=== PATIENT | female | born 1985 | race Caucasian/White ===

== ENCOUNTER 2016-06-11 16:32 | Emergency (ER) | payer OTHER ==
--- NOTE | 2016-06-11 17:28 | EDDOCDS ---
Physician Documentation [facility] Name: Alexus Montague Age: 30 yrs Sex: Female : 1985 Arrival Date: 06/11/2016 Time: 16:32 Bed Triage 1 Private MD: Fabricio Xiong A. Disposition: 06/11/16 17:09 Discharged to Home/Self Care. Impression: Acute serous otitis media, left ear, Labyrinthitis. - Condition is Stable. - Discharge Instructions: Serous Otitis Media, Labyrinthitis, Grzu-wu-Yoky. - Prescriptions for Medrol (Loy) 4 mg Oral Tablets, Dose Pack - take 1 Pack by ORAL route as directed - follow package instructions; 1 packet. azelastine 137 mcg (0.1 %) Nasal Aerosol, [place] - spray 2 spray by INTRANASAL route 2 times per day each nostril; 1 bottle. - Medication Reconciliation, Local Pharmacy Hours form. - Follow up: Fabricio Xiong; When: 2 - 3 days; Reason: Further diagnostic work-up, Recheck today's complaints, Continuance of care. - Problem is new. - Symptoms are unchanged. Historical: - Allergies: no known allergies; - Home Meds: 1. Augmentin 875-125 mg Oral tab 1 tab every 12 hours on 4th day - PMHx: PCOS; - PSHx: Right knee surgery; Cholecystectomy; - Social history: Smoking status: Patient states former smoker of tobacco. No barriers to communication noted, The patient speaks fluent Uzbek, Speaks appropriately for age. - Family history: Not pertinent. - : The pt / caregiver states he / she is not on anticoagulants. Home medication list is obtained from the patient. - Exposure Risk Screening:: None identified. 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 3 in. (160.02 cm) (R); 16:34 Body Mass Index 41.45 (106.14 kg, 160.02 cm) elp Signatures: Jaja Menon RN RN rs3 Babatunde Villegas PA PA btw Smith, Mallory,RN RN ms18 The chart was reviewed and I authenticate all verbal orders and agree with the evaluation and treatment provided.Corrections: (The following items were deleted from the chart) 17:23 16:41 Home Meds: none; rs3 ms18 MTDD
--- NOTE | 2016-06-11 17:28 | EDDOCDS ---
Nurse's Notes [facility] Name: Alexus Montague Age: 30 yrs Sex: Female : 1985 Arrival Date: 06/11/2016 Time: 16:32 Bed Triage 1 Private MD: Fabricio Xiong A. Diagnosis: Acute serous otitis media, left ear;Labyrinthitis Presentation: 06/11 16:39 Presenting complaint: Patient states: headache, nausea for 7 days. Was seen at urgent rs3 care on Sunday. given Augmentin for L ear infection. symptoms not improved. Risk factors: the patient reports no vaginal bleeding. Adult Sepsis Screening: The patient does not have new or worsening altered mentation. Patient's respiratory rate is less than 22. Systolic blood pressure is greater than 100. Patient has a qSOFA score of 0- Negative Sepsis Screen. Suicide/Homicide risk assessment- the patient denies having any suicidal and/or homicidal ideations and does not present with any other emotional, behavioral or mental health complaints. Status: Patient is not a customer service representative or dependent. Transition of care: patient was not received from another setting of care. 16:39 Acuity: MORENA Level 4 rs3 16:39 Method Of Arrival: Walkin/Carried/Asstd rs3 Triage Assessment: 16:41 General: Appears in no apparent distress. Pain: Location: headache. HIV screening NA rs3 for this visit Offered previously. 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 Augmentin 875-125 mg Oral tab 1 tab every 12 hours on 4th day - PMHx: PCOS; - PSHx: Right knee surgery; Cholecystectomy; - Social history: Smoking status: Patient states former smoker of tobacco. No barriers to communication noted, The patient speaks fluent [place], Speaks appropriately for age. - Family history: Not pertinent. - : The pt / caregiver states he / she is not on anticoagulants. Home medication list is obtained from the patient. - Exposure Risk Screening:: None identified. Screenin:23 Screening information is obtained from the patient. Fall risk: No risks identified. ms18 Assistance ADL's: requires no assistance with activities of daily living. Abuse/DV Screen: The patient / caregiver reports he/she is: not in a situation that causes fear, pain or injury. Nutritional screening: No deficits noted. Advance Directives: Currently, there is no health care proxy. home support is adequate. Assessment: 17:23 General: Appears in no apparent distress, comfortable, Behavior is appropriate for age, ms18 cooperative. Pain: Location: head, right upper quadrant and left upper quadrant Pain currently is 8 out of 10 on a pain scale. Neurological: No deficits noted. Respiratory: Airway is patent Respiratory effort is even, unlabored. GI: Abdomen is non- distended Bowel sounds present X 4 quads. Abd is soft X 4 quads Reports nausea. Derm: Skin is pink, warm & dry. Vital Signs: 16:34 BP 105 / 63; Pulse 84; Resp 16; Temp 98.1(O); Pulse Ox 100% on R/A; Weight 106.14 kg elp (R); Height 5 ft. 3 in. (160.02 cm) (R); 16:34 Body Mass Index 41.45 (106.14 kg, 160.02 cm) elp Vitals: 16:34 Log In Time: June 11, 2016 at 16:32. elp ED Course: 16:33 Patient visited by Alecia Santos PCA. elp 16:33 Patient moved to Waiting elp 16:34 Fabricio Xiong is Private Physician. elp 16:34 Patient visited by Alecia Santos PCA. elp 16:34 Patient moved to Pre RCE elp 16:40 Triage Initiated rs3 16:48 Patient moved to Triage 1 jjr 16:57 [facility]leg[facility] is [facility]. btw 16:57 Ankita Yu MD is Attending Physician. btw 16:58 Patient visited by Babatunde Villegas PA. btw 17:09 Fabricio Xiong is Referral Physician. btw 17:23 The patient / caregiver is instructed regarding the plan of care and ED course. Patient ms18 has correct armband on for positive identification. Property sent home with patient. :Personal belongings accompany Pt. 17:23 No IV's were initiated during this patient's visit. No procedures done that require ms18 assistance. Order Results: There are currently no results for this order. Outcome: 17:09 Discharge ordered by Provider. btw 17:23 Discharge Assessment: Patient awake, alert and oriented x 3. No cognitive and/or ms18 functional deficits noted. Patient verbalized understanding of disposition instructions. patient administered narcotics - no. The following High Risk Discharge criteria are identified: None. Discharged to home ambulatory. Condition: good Condition: stable. Discharge instructions given to patient, Instructed on discharge instructions, follow up and referral plans. medication usage, Demonstrated understanding of instructions, medications, Pt was receptive of discharge instructions/ teaching. Prescriptions given X 2. No special radiology studies were completed. 17:26 Patient left the ED. ms18 Signatures: Jocelyn Ames, RN RN Jaja SolanoRN RN rs3 Babatunde Villegas, PA PA Alecia Rowell, EXERCISE RIDER EXERCISE RIDER Smiley Leo RN RN ms18 Corrections: (The following items were deleted from the chart) 17:23 16:41 Home Meds: none; rs3 ms18 MTDD
--- NOTE | 2016-06-13 18:28 | EDDOCDS ---
Physician Documentation [facility] Name: Alexus Montague Age: 30 yrs Sex: Female : 1985 Arrival Date: 06/11/2016 Time: 16:32 Bed Triage 1 Private MD: Fabricio Xiong A. Disposition: 06/11/16 17:09 Discharged to Home/Self Care. Impression: Acute serous otitis media, left ear, Labyrinthitis. - Condition is Stable. - Discharge Instructions: Serous Otitis Media, Labyrinthitis, Nkiu-jc-Saah. - Prescriptions for Medrol (Loy) 4 mg Oral Tablets, Dose Pack - take 1 Pack by ORAL route as directed - follow package instructions; 1 packet. azelastine 137 mcg (0.1 %) Nasal Aerosol, [place] - spray 2 spray by INTRANASAL route 2 times per day each nostril; 1 bottle. - Medication Reconciliation, Local Pharmacy Hours form. - Follow up: Fabricio Xiong; When: 2 - 3 days; Reason: Further diagnostic work-up, Recheck today's complaints, Continuance of care. - Problem is new. - Symptoms are unchanged. Historical: - Allergies: no known allergies; - Home Meds: 1. Augmentin 875-125 mg Oral tab 1 tab every 12 hours on 4th day - PMHx: PCOS; - PSHx: Right knee surgery; Cholecystectomy; - Social history: Smoking status: Patient states former smoker of tobacco. No barriers to communication noted, The patient speaks fluent Italian, Speaks appropriately for age. - Family history: Not pertinent. - : The pt / caregiver states he / she is not on anticoagulants. Home medication list is obtained from the patient. - Exposure Risk Screening:: None identified. 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 3 in. (160.02 cm) (R); 16:34 Body Mass Index 41.45 (106.14 kg, 160.02 cm) elp [facility]: 17:28 Financial registration complete. ks 17:29 PENDING SALE TO [facility] Payment Agreement was scanned into [employer] and attached to record. 06/12 12:49 T-Sheet-- Draft Copy was scanned into [employer] and attached to record. gb Signatures: Maria C García, Reg Reg gb Jaja MenonRN RN rs3 Babatunde Villegas PA PA btw Smith, Mallory, RN RN ms18 Lin Dutton, Reg Reg ks16 The chart was reviewed and I authenticate all verbal orders and agree with the evaluation and treatment provided.Corrections: (The following items were deleted from the chart) 06/11 17:23 16:41 Home Meds: none; rs3 ms18 Attachments: 17:29 [facility] [place] 06/12 12:49 T-Sheet-- Draft Copy gb Chart Complete MTDD
--- NOTE | 2016-06-13 18:28 | EDDOCDS ---
Physician Documentation [facility] Name: Alexus Montague Age: 30 yrs Sex: Female : 1985 Arrival Date: 06/11/2016 Time: 16:32 Bed Triage 1 Private MD: Fabricio Xiong A. Disposition: 06/11/16 17:09 Discharged to Home/Self Care. Impression: Acute serous otitis media, left ear, Labyrinthitis. - Condition is Stable. - Discharge Instructions: Serous Otitis Media, Labyrinthitis, Xyly-[id number]. - Prescriptions for Medrol (Loy) 4 mg Oral Tablets, Dose Pack - take 1 Pack by ORAL route as directed - follow package instructions; 1 packet. azelastine 137 mcg (0.1 %) Nasal Aerosol, [place] - spray 2 spray by INTRANASAL route 2 times per day each nostril; 1 bottle. - Medication Reconciliation, Local Pharmacy Hours form. - Follow up: Fabricio Xiong; When: 2 - 3 days; Reason: Further diagnostic work-up, Recheck today's complaints, Continuance of care. - Problem is new. - Symptoms are unchanged. Historical: - Allergies: no known allergies; - Home Meds: 1. Augmentin 875-125 mg Oral tab 1 tab every 12 hours on 4th day - PMHx: PCOS; - PSHx: Right knee surgery; Cholecystectomy; - Social history: Smoking status: Patient states former smoker of tobacco. No barriers to communication noted, The patient speaks fluent Setswana, Speaks appropriately for age. - Family history: Not pertinent. - : The pt / caregiver states he / she is not on anticoagulants. Home medication list is obtained from the patient. - Exposure Risk Screening:: None identified. 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 3 in. (160.02 cm) (R); 16:34 Body Mass Index 41.45 (106.14 kg, 160.02 cm) elp [facility]: 17:28 Financial registration complete. ks 17:29 [facility] Payment Agreement was scanned into [employer] and attached to record. 06/12 12:49 T-Sheet-- Draft Copy was scanned into [employer] and attached to record. gb Signatures: Maria C García, Reg Reg gb Jaja MenonRN RN rs3 Babatunde Villegas PA PA btw Smith, Mallory, RN RN ms18 Lin Dutton, Reg Reg ks16 The chart was reviewed and I authenticate all verbal orders and agree with the evaluation and treatment provided.Corrections: (The following items were deleted from the chart) 06/11 17:23 16:41 Home Meds: none; rs3 ms18 Attachments: 17:29 [facility] Payment Agreement 06/12 12:49 T-Sheet-- Draft Copy gb Chart Complete MTDD
--- NOTE | 2016-06-13 18:28 | EDDOCDS ---
Nurse's Notes [facility] Name: Alexus Montague Age: 30 yrs Sex: Female : 1985 Arrival Date: 06/11/2016 Time: 16:32 Bed Triage 1 Private MD: Fabricio Xiong A. Diagnosis: Acute serous otitis media, left ear;Labyrinthitis Presentation: 06/11 16:39 Presenting complaint: Patient states: headache, nausea for 7 days. Was seen at urgent rs3 care on Sunday. given Augmentin for L ear infection. symptoms not improved. Risk factors: the patient reports no vaginal bleeding. Adult Sepsis Screening: The patient does not have new or worsening altered mentation. Patient's respiratory rate is less than 22. Systolic blood pressure is greater than 100. Patient has a qSOFA score of 0- Negative Sepsis Screen. Suicide/Homicide risk assessment- the patient denies having any suicidal and/or homicidal ideations and does not present with any other emotional, behavioral or mental health complaints. Status: Patient is not a customer service engineer or dependent. Transition of care: patient was not received from another setting of care. 16:39 Acuity: MORENA Level 4 rs3 16:39 Method Of Arrival: Walkin/Carried/Asstd rs3 Triage Assessment: 16:41 General: Appears in no apparent distress. Pain: Location: headache. HIV screening NA rs3 for this visit Offered previously. 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 Augmentin 875-125 mg Oral tab 1 tab every 12 hours on 4th day - PMHx: PCOS; - PSHx: Right knee surgery; Cholecystectomy; - Social history: Smoking status: Patient states former smoker of tobacco. No barriers to communication noted, The patient speaks fluent Montenegrin, Speaks appropriately for age. - Family history: Not pertinent. - : The pt / caregiver states he / she is not on anticoagulants. Home medication list is obtained from the patient. - Exposure Risk Screening:: None identified. Screenin:23 Screening information is obtained from the patient. Fall risk: No risks identified. ms18 Assistance ADL's: requires no assistance with activities of daily living. Abuse/DV Screen: The patient / caregiver reports he/she is: not in a situation that causes fear, pain or injury. Nutritional screening: No deficits noted. Advance Directives: Currently, there is no health care proxy. home support is adequate. Assessment: 17:23 General: Appears in no apparent distress, comfortable, Behavior is appropriate for age, ms18 cooperative. Pain: Location: head, right upper quadrant and left upper quadrant Pain currently is 8 out of 10 on a pain scale. Neurological: No deficits noted. Respiratory: Airway is patent Respiratory effort is even, unlabored. GI: Abdomen is non- distended Bowel sounds present X 4 quads. Abd is soft X 4 quads Reports nausea. Derm: Skin is pink, warm & dry. Vital Signs: 16:34 BP 105 / 63; Pulse 84; Resp 16; Temp 98.1(O); Pulse Ox 100% on R/A; Weight 106.14 kg elp (R); Height 5 ft. 3 in. (160.02 cm) (R); 16:34 Body Mass Index 41.45 (106.14 kg, 160.02 cm) elp Vitals: 16:34 Log In Time: June 11, 2016 at 16:32. elp ED Course: 16:33 Patient visited by Alecia Santos PCA. elp 16:33 Patient moved to Waiting elp 16:34 Fabricio Xiong is Private Physician. elp 16:34 Patient visited by Alecia Santos PCA. elp 16:34 Patient moved to Pre RCE elp 16:40 Triage Initiated rs3 16:48 Patient moved to Triage 1 jjr 16:57 [facility] btw 16:57 Ankita Yu MD is Attending Physician. btw 16:58 Patient visited by Babatunde Villegas PA. btw 17:09 Fabricio Xiong is Referral Physician. btw 17:23 The patient / caregiver is instructed regarding the plan of care and ED course. Patient ms18 has correct armband on for positive identification. Property sent home with patient. :Personal belongings accompany Pt. 17:23 No IV's were initiated during this patient's visit. No procedures done that require ms18 assistance. 17:29 [facility] Payment Agreement was scanned into [employer] and attached to record. [id number] 06/12 12:49 T-Sheet-- Draft Copy was scanned into [employer] and attached to record. gb Order Results: There are currently no results for this order. Outcome: 06/11 17:09 Discharge ordered by Provider. btw 17:23 Discharge Assessment: Patient awake, alert and oriented x 3. No cognitive and/or ms18 functional deficits noted. Patient verbalized understanding of disposition instructions. patient administered narcotics - no. The following High Risk Discharge criteria are identified: None. Discharged to home ambulatory. Condition: good Condition: stable. Discharge instructions given to patient, Instructed on discharge instructions, follow up and referral plans. medication usage, Demonstrated understanding of instructions, medications, Pt was receptive of discharge instructions/ teaching. Prescriptions given X 2. No special radiology studies were completed. 17:26 Patient left the ED. ms18 Signatures: Maria C García, Reg Reg gb Jocelyn Ames, RN RN Jaja SolanoRN RN rs3 Babatunde Villegas, ASHA PA btw Alecia Santos, DATA NETWORK ARCHITECT DATA NETWORK ARCHITECT Smiley Leo RN RN ms18 Lin Dutton, Reg Reg ks16 Corrections: (The following items were deleted from the chart) 17:23 16:41 Home Meds: none; rs3 ms18 Chart Complete MTDD
== END 2016-06-11 17:26 | disposition home or self-care (01) ==
LOC: M ED 16:32
DX: H83.09 Labyrinthitis, unspecified ear (principal); H65.02 Acute serous otitis media, left ear; Z79.2 Long term (current) use of antibiotics

== ENCOUNTER 2016-06-14 22:30 | Emergency (ER) | payer OTHER ==
[2016-06-14] MEDS ORDERED: diphenhydrAMINE INJ 50MG/ML VIAL (J1200) As Ordered ONE (23:15)
[2016-06-14] MEDS ORDERED: FAMOTIDINE INJ 20MG/2ML VIAL (S0028) As Ordered ONE (23:16)
[2016-06-15 01:05] LABS: BASO % 0.2 % (0.0-1.0); EOS # 0.1 K/mm3 (0.0-0.50); EOS % 0.5 % (0.0-3.0); LARGE UNSTAINED CELL # 0.1 K/mm3 (0.0-0.4); LARGE UNSTAINED CELL % 1.2 % (0.0-4.0); LYMPH # 1.6 K/mm3 (1.5-4.5); LYMPH % 14.6 % (24.0-44.0); MEAN CORPUSCULAR HEMOGLOBIN 27.6 pg (27.0-33.0); MEAN CORPUSCULAR HGB CONC 33.3 g/dl (32.0-36.5); MEAN CORPUSCULAR VOLUME 82.9 fl (80.0-96.0); MONO # 0.4 K/mm3 (0.0-0.8); MONO % 3.2 % (0.0-5.0); NEUTROPHILS # 8.7 K/mm3 (1.8-7.7); NEUTROPHILS % 80.2 % (36.0-66.0); PLATELET COUNT, AUTOMATED 299 k/mm3 (150-450); WHITE BLOOD COUNT 10.9 K/mm3 (4.0-10.0)
[2016-06-15 01:24] LABS: CONTROL LINE HCG INT CTR LINE PRESENT
[2016-06-15 01:25] LABS: ANION GAP 8 MEQ/L (8-16); BLOOD UREA NITROGEN 10 MG/DL (7-18); CALCIUM LEVEL 8.4 MG/DL (8.5-10.1); CARBON DIOXIDE LEVEL 23 MEQ/L (21-32); CHLORIDE LEVEL 109 MEQ/L (98-107); CREATININE FOR GFR 0.59 MG/DL (0.55-1.02); GLOMERULAR FILTRATION RATE > 60.0 (>60); GLUCOSE, FASTING 109 MG/DL (70-105); POTASSIUM SERUM 3.8 MEQ/L (3.5-5.1); SODIUM LEVEL 140 MEQ/L (136-145)
--- NOTE | 2016-06-15 02:59 | EDDOCDS ---
Physician Documentation [facility] Name: Alexus Montague Age: 30 yrs Sex: Female : 1985 Arrival Date: 06/14/2016 Time: 22:30 Bed 17 Private MD: Fabricio Xiong A. Disposition: 06/15/16 02:43 Discharged to Home/Self Care. Impression: Allergic urticaria - Possibly due to Medrol Dose.. - Condition is Stable. - Discharge Instructions: Allergies, Hives, Allergies, Ymkk-[id number]-Aiml, Hives, Vxzz-zc-Tdat. - Medication Reconciliation, Local Pharmacy Hours form. - Follow up: Fabricio Xiong; When: Call to arrange an appointment; Reason: Continuance of care. - Problem is an acute exacerbation. - Symptoms have improved. Historical: - Allergies: No known drug Allergies; - Home Meds: 1. methylprednisolone 4 mg Oral tab 4 times per day 2. Astepro 0.15 % (205.5 mcg) nasal spry 1 spray 2 times per day - PMHx: PCOS; - PSHx: Right knee surgery; Cholecystectomy; - Social history: Smoking status: Patient uses tobacco products, light tobacco smoker. No barriers to communication noted, The patient speaks fluent Taiwanese, Speaks appropriately for age. - Family history: Not pertinent. - : The pt / caregiver states he / she is not on anticoagulants. Home medication list is obtained from the patient. - Exposure Risk Screening:: None identified. 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 3 in. (160.02 cm) (R); Pain 2/10; 23:23 BP 148 / 72; Pulse 78; Resp 18; Pulse Ox 98% on R/A; tm5 02/02 00:55 BP 116 / 52; Pulse 78; Resp 18; Pulse Ox 98% on R/A; Pain 0/10; tm5 02:55 BP 118 / 52; Pulse 77; Resp 18; Temp 98.3(O); Pulse Ox 100% on R/A; Pain 0/10; tm5 06/14 22:32 Body Mass Index 41.45 (106.14 kg, 160.02 cm) gr2 MDM: 06/14 23:09 IV Saline Lock ordered. mm11 23:09 diphenhydrAMINE 25 mg IVP once ordered. mm11 23:09 Famotidine 10 mg IVPB once over 30 mins; dilute in 50mL of NS ordered. mm11 23:38 Financial registration complete. hs2 06/15 00:08 [facility] Payment Agreement was scanned into [employer] and attached to record. hs2 00:39 NS 0.9% 1000 ml IV at bolus once ordered. mm11 00:40 CBC with Diff Ordered. EDMS 00:40 BMP Ordered. EDMS 00:40 D-Dimer Quant Ordered. EDMS 00:40 HCG,Serum Qualitative Ordered. EDMS 00:41 Chest, 2 View (pa\E\lat) Ordered. EDMS 01:31 CBC with Diff Reviewed. mm11 01:31 BMP Reviewed. mm11 01:31 HCG,Serum Qualitative Reviewed. mm11 01:42 D-Dimer Quant Reviewed. mm11 Administered Medications: 06/14 23:24 Drug: diphenhydrAMINE 25 mg [diphenhydramine 50 mg/mL injection solution (0.5 mL)] tm5 Route: IVP; Site: left hand; 06/15 00:25 Follow up: Response: No Adverse Reaction tm5 06/14 23:24 Drug: Famotidine 10 mg [famotidine 10 mg/mL intravenous solution] {Note: given IVPB in tm5 50cc NS over 30 minutes.} Route: IVPB; Infused Over: 30 mins; Site: left hand; 06/15 00:05 Follow up: IV Status: Completed infusion; IV Intake: 50ml tm5 00:55 Drug: NS 0.9% 1000 ml [sodium chloride 0.9 % intravenous solution] Route: IV; Rate: tm5 bolus; Site: left hand; 02:50 Follow up: IV Status: Completed infusion; IV Intake: 1000ml tm5 Signatures: Dispatcher [employer] EDMS Tameka King RN RN jo3 Maynard, Matthew, DO DO mm11 Windy Pham, Reg Reg hs2 Ellie Malhotra RN RN tm5 The chart was reviewed and I authenticate all verbal orders and agree with the evaluation and treatment provided.Attachments: 00:08 [facility] Payment Agreement hs2 MTDD
--- NOTE | 2016-06-15 02:59 | EDDOCDS ---
Nurse's Notes [facility] Name: Alexus Montague Age: 30 yrs Sex: Female : 1985 Arrival Date: 06/14/2016 Time: 22:30 Bed 17 Private MD: Fabricio Xiong A. Diagnosis: Allergic urticaria-Possibly due to Medrol Dose. Presentation: 06/14 22:46 Presenting complaint: Patient states: Taking methylprednisolone since yesterday. Took jo3 evening dose tonight at 2039 and upper arms and face are itchy and pt reports a tightness in her chest. Onset: The symptoms/episode began/occurred acutely, 2 hour(s) ago. This patient has not experienced a previous allergic reaction. Anaphylaxis evaluation, the patient reports or I have noted the following symptoms which indicate a significant risk of anaphylaxis: chest pain. Adult Sepsis Screening: The patient does not have new or worsening altered mentation. Patient's respiratory rate is less than 22. Systolic blood pressure is greater than 100. Patient has a qSOFA score of 0- Negative Sepsis Screen. Suicide/Homicide risk assessment- the patient denies having any suicidal and/or homicidal ideations and does not present with any other emotional, behavioral or mental health complaints. 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 Transition of care: patient was not received from another setting of care. 22:46 Acuity: MORENA Level 2 jo3 22:46 Method Of Arrival: Walkin/Carried/Asstd jo3 Triage Assessment: 22:50 General: Appears in no apparent distress, Behavior is appropriate for age, cooperative. jo3 HIV screening NA for this visit Offered previously. Neurological: Level of Consciousness is awake, alert, Oriented to person, place, time. Cardiovascular: Chest pain quality is tightness. Respiratory: Airway is patent Respiratory effort is even, unlabored, Reports. Derm: Skin is pink, warm & dry. 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 methylprednisolone 4 mg Oral tab 4 times per day 2. Astepro 0.15 % (205.5 mcg) nasal spry 1 spray 2 times per day - PMHx: PCOS; - PSHx: Right knee surgery; Cholecystectomy; - Social history: Smoking status: Patient uses tobacco products, light tobacco smoker. No barriers to communication noted, The patient speaks fluent Peruvian, Speaks appropriately for age. - Family history: Not pertinent. - : The pt / caregiver states he / she is not on anticoagulants. Home medication list is obtained from the patient. - Exposure Risk Screening:: None identified. Screenin:09 Screening information is obtained from the patient. Fall risk: No risks identified. tm5 Assistance ADL's: requires no assistance with activities of daily living. Abuse/DV Screen: The patient / caregiver reports he/she is: not in a situation that causes fear, pain or injury. Nutritional screening: No deficits noted. Advance Directives: There is no active DNR order. home support is adequate. Assessment: 23:23 General: Appears in no apparent distress, Behavior is appropriate for age, cooperative. tm5 Pain: Denies pain. Neurological: Level of Consciousness is awake, alert, Oriented to person, place, time. Respiratory: Airway is patent Respiratory effort is even, unlabored, Respiratory pattern is regular, symmetrical, Breath sounds are clear bilaterally. GI: No deficits noted. : No deficits noted. Derm: Skin is pink, warm & dry. normal, cheeks flushed. 06/15 00:25 Reassessment: Patient appears in no apparent distress at this time. Patient states tm5 feeling better. Patient states symptoms have improved. 02:55 Reassessment: Patient appears in no apparent distress at this time. Patient states tm5 feeling better. Patient states symptoms have improved. Vital Signs: 06/14 22:32 BP 152 / 73; Pulse 90; Resp 18 S; Temp 97.6(O); Pulse Ox 99% on R/A; Weight 106.14 kg gr2 (R); Height 5 ft. 3 in. (160.02 cm) (R); Pain 2/10; 23:23 BP 148 / 72; Pulse 78; Resp 18; Pulse Ox 98% on R/A; tm5 06/15 00:55 BP 116 / 52; Pulse 78; Resp 18; Pulse Ox 98% on R/A; Pain 0/10; tm5 02:55 BP 118 / 52; Pulse 77; Resp 18; Temp 98.3(O); Pulse Ox 100% on R/A; Pain 0/10; tm5 06/14 22:32 Body Mass Index 41.45 (106.14 kg, 160.02 cm) gr2 Vitals: 06/14 22:32 Log In Time: June 14, 2016 at 22:32. gr2 ED Course: 22:31 Patient visited by Clem Ames. gr2 22:31 Fabricio Xiong is Private Physician. gr2 22:31 Patient moved to Waiting gr2 22:32 Patient visited by Clem Ames. gr2 22:33 Patient moved to Pre RCE gr2 22:48 Triage Initiated jo3 22:52 Patient moved to 17 jo3 22:55 Zachary Najera DO is Attending Physician. mm11 22:55 Patient visited by Zachary Najera DO. mm11 23:08 Patient visited by Zachary Najera DO. mm11 23:09 The patient / caregiver is instructed regarding the plan of care and ED course. tm5 23:22 Inserted saline lock: 20 gauge in left hand The patient tolerated the procedure well. tm5 No procedures done that require assistance. 06/15 00:08 REPLACED BY [facility] Payment Agreement was scanned into [employer] and attached to record. hs2 00:25 Patient visited by Ellie Malhotra RN. tm5 00:37 Patient visited by Ellie Malhotra,RONEN. tm5 00:54 HCG,Serum Qualitative Sent. tm5 00:54 D-Dimer Quant Sent. tm5 00:55 BMP Sent. tm5 00:55 CBC with Diff Sent. tm5 00:55 Labs drawn. (by ED staff). Sent per order to lab. tm5 01:38 Patient moved to Radiology es5 01:49 Patient moved to 17 es5 01:50 Patient visited by Zachary Najera DO. mm11 01:55 Patient visited by Ellie Malhotra,RONEN. tm5 02:40 Fabricio Xiong is Referral Physician. mm11 02:55 Patient visited by Ellie Malhotra RN. tm5 02:55 Discontinued lock intact, bleeding controlled, pressure dressing applied, No tm5 redness/swelling at site. Administered Medications: 06/14 23:24 Drug: diphenhydrAMINE 25 mg [diphenhydramine 50 mg/mL injection solution (0.5 mL)] tm5 Route: IVP; Site: left hand; 06/15 00:25 Follow up: Response: No Adverse Reaction tm5 06/14 23:24 Drug: Famotidine 10 mg [famotidine 10 mg/mL intravenous solution] {Note: given IVPB in tm5 50cc NS over 30 minutes.} Route: IVPB; Infused Over: 30 mins; Site: left hand; 06/15 00:05 Follow up: IV Status: Completed infusion; IV Intake: 50ml tm5 00:55 Drug: NS 0.9% 1000 ml [sodium chloride 0.9 % intravenous solution] Route: IV; Rate: tm5 bolus; Site: left hand; 02:50 Follow up: IV Status: Completed infusion; IV Intake: 1000ml tm5 Intake: 00:05 IV: 50.00ml; Total: 50.00ml. tm5 02:50 IV: 1000.00ml; Total: 1050.00ml. tm5 Order Results: Lab Order: CBC with Diff; SPEC'M 06/15/16 00:53 Test: WHITE BLOOD COUNT; Value: 10.9; Range: 4.0-10.0; Abnormal: Above high normal; Units: K/mm3; Status: F Test: RED BLOOD COUNT; Value: 4.70; Range: 4.00-5.40; Units: M/mm3; Status: F Test: HEMOGLOBIN; Value: 13.0; Range: 12.0-16.0; Units: g/dl; Status: F Test: HEMATOCRIT; Value: 38.9; Range: 36.0-47.0; Units: %; Status: F Test: MEAN CORPUSCULAR VOLUME; Value: 82.9; Range: 80.0-96.0; Units: fl; Status: F Test: MEAN CORPUSCULAR HEMOGLOBIN; Value: 27.6; Range: 27.0-33.0; Units: pg; Status: F Test: MEAN CORPUSCULAR HGB CONC; Value: 33.3; Range: 32.0-36.5; Units: g/dl; Status: F Test: RED CELL DISTRIBUTION WIDTH; Value: 13.0; Range: 11.5-14.5; Units: %; Status: F Test: PLATELET COUNT, AUTOMATED; Value: 299; Range: 150-450; Units: k/mm3; Status: F Test: NEUTROPHILS %; Value: 80.2; Range: 36.0-66.0; Abnormal: Above high normal; Units: %; Status: F Test: LYMPH %; Value: 14.6; Range: 24.0-44.0; Abnormal: Below low normal; Units: %; Status: F Test: MONO %; Value: 3.2; Range: 0.0-5.0; Units: %; Status: F Test: EOS %; Value: 0.5; Range: 0.0-3.0; Units: %; Status: F Test: BASO %; Value: 0.2; Range: 0.0-1.0; Units: %; Status: F Test: LARGE UNSTAINED CELL %; Value: 1.2; Range: 0.0-4.0; Units: %; Status: F Test: NEUTROPHILS #; Value: 8.7; Range: 1.8-7.7; Abnormal: Above high normal; Units: K/mm3; Status: F Test: LYMPH #; Value: 1.6; Range: 1.5-4.5; Units: K/mm3; Status: F Test: MONO #; Value: 0.4; Range: 0.0-0.8; Units: K/mm3; Status: F Test: EOS #; Value: 0.1; Range: 0.0-0.50; Units: K/mm3; Status: F Test: BASO #; Value: 0.0; Range: 0.0-0.2; Units: K/mm3; Status: F Test: LARGE UNSTAINED CELL #; Value: 0.1; Range: 0.0-0.4; Units: K/mm3; Status: F Lab Order: [facility]; SPEC'M 06/15/16 00:53 Test: GLUCOSE, FASTING; Value: 109; Range: 70-105; Abnormal: Above high normal; Units: MG/DL; Status: F Test: BLOOD UREA NITROGEN; Value: 10; Range: 7-18; Units: MG/DL; Status: F Test: CREATININE FOR GFR; Value: 0.59; Range: 0.55-1.02; Units: MG/DL; Status: F Test: GLOMERULAR FILTRATION RATE; Value: > 60.0; Range: >60; Status: F Test: SODIUM LEVEL; Value: 140; Range: 136-145; Units: MEQ/L; Status: F Test: POTASSIUM SERUM; Value: 3.8; Range: 3.5-5.1; Units: MEQ/L; Status: F Test: CHLORIDE LEVEL; Value: 109; Range: 98-107; Abnormal: Above high normal; Units: MEQ/L; Status: F Test: CARBON DIOXIDE LEVEL; Value: 23; Range: 21-32; Units: MEQ/L; Status: F Test: ANION GAP; Value: 8; Range: 8-16; Units: MEQ/L; Status: F Test: CALCIUM LEVEL; Value: 8.4; Range: 8.5-10.1; Abnormal: Below low normal; Units: MG/DL; Status: F Test Note: ; Units are mL/min/1.73 m2 Chronic Kidney Disease Staging per NKF: Stage I & II GFR >=60 Normal to Mildly Decreased Stage III GFR 30-59 Moderately Decreased Stage IV GFR 15-29 Severely Decreased Stage V GFR <15 Very Little GFR Left ESRD GFR <15 on CAMP [place]OSS Lab Order: D-Dimer Quant; SPEC'M 06/15/16 00:53 Test: D-DIMER QUANT; Value: 408.3; Range: <500; Units: ng/ml; Status: F Lab Order: HCG,Serum Qualitative; SPEC'M 06/15/16 00:53 Test: HCG, SERUM QUALITATIVE; Value: NEGATIVE; Range: NEGATIVE; Status: F Outcome: 02:43 Discharge ordered by Provider. mm11 02:55 Discharge Assessment: Patient awake, alert and oriented x 3. No cognitive and/or tm5 functional deficits noted. Patient verbalized understanding of disposition instructions. patient administered narcotics - no. The following High Risk Discharge criteria are identified: None. Discharged to home ambulatory. Condition: good Condition: stable Condition: improved. Discharge instructions given to patient, Instructed on discharge instructions, follow up and referral plans. Demonstrated understanding of instructions, Pt was receptive of discharge instructions/ teaching. No special radiology studies were completed. Property :Personal belongings accompany Pt. 02:58 Patient left the ED. tm5 Signatures: Tameka KingRN RN [email or web address] Zachary Najera DO DO mm11 Krissy Feldman es5 Clem Ames gr2 Windy Pham, Reg Reg hs2 Ellie Malhotra RN RN tm5 MTDD
--- NOTE | 2016-06-15 03:05 | REP ---
Clinical: Shortness of breath . Comparison: 01/30/2013 . Technique: PA and lateral. Findings: The mediastinum and cardiac silhouette are normal. The lung coello are clear and without acute consolidation, effusion, or pneumothorax. The skeletal structures are intact and normal. Impression: 1. No acute cardiopulmonary process. Signed by Omar Santamaria MD 06/15/2016 02:56 A
--- NOTE | 2016-06-17 03:59 | EDDOCDS ---
Physician Documentation [facility] Name: Alexus Montague Age: 30 yrs Sex: Female : 1985 Arrival Date: 06/14/2016 Time: 22:30 Bed 17 Private MD: Fabricio Xiong A. Disposition: 06/15/16 02:43 Discharged to Home/Self Care. Impression: Allergic urticaria - Possibly due to Medrol Dose.. - Condition is Stable. - Discharge Instructions: Allergies, Hives, Allergies, Cdzo-cd-Gbyk, Hives, Htbj-dy-Okil. - Medication Reconciliation, Local Pharmacy Hours form. - Follow up: Fabricio Xiong; When: Call to arrange an appointment; Reason: Continuance of care. - Problem is an acute exacerbation. - Symptoms have improved. Historical: - Allergies: No known drug Allergies; - Home Meds: 1. methylprednisolone 4 mg Oral tab 4 times per day 2. Astepro 0.15 % (205.5 mcg) nasal spry 1 spray 2 times per day - PMHx: PCOS; - PSHx: Right knee surgery; Cholecystectomy; - Social history: Smoking status: Patient uses tobacco products, light tobacco smoker. No barriers to communication noted, The patient speaks fluent Mauritian, Speaks appropriately for age. - Family history: Not pertinent. - : The pt / caregiver states he / she is not on anticoagulants. Home medication list is obtained from the patient. - Exposure Risk Screening:: None identified. 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 3 in. (160.02 cm) (R); Pain 2/10; 23:23 BP 148 / 72; Pulse 78; Resp 18; Pulse Ox 98% on R/A; tm5 02/02 00:55 BP 116 / 52; Pulse 78; Resp 18; Pulse Ox 98% on R/A; Pain 0/10; tm5 02:55 BP 118 / 52; Pulse 77; Resp 18; Temp 98.3(O); Pulse Ox 100% on R/A; Pain 0/10; tm5 06/14 22:32 Body Mass Index 41.45 (106.14 kg, 160.02 cm) gr2 MDM: 06/14 23:09 IV Saline Lock ordered. mm11 23:09 diphenhydrAMINE 25 mg IVP once ordered. mm11 23:09 Famotidine 10 mg IVPB once over 30 mins; dilute in 50mL of NS ordered. mm11 23:38 Financial registration complete. hs2 06/15 00:08 [facility] Payment Agreement was scanned into [employer] and attached to record. hs2 00:39 NS 0.9% 1000 ml IV at bolus once ordered. mm11 00:40 CBC with Diff Ordered. EDMS 00:40 BMP Ordered. EDMS 00:40 D-Dimer Quant Ordered. EDMS 00:40 HCG,Serum Qualitative Ordered. EDMS 00:41 Chest, 2 View (pa\E\lat) Ordered. EDMS 01:31 CBC with Diff Reviewed. mm11 01:31 BMP Reviewed. mm11 01:31 HCG,Serum Qualitative Reviewed. mm11 01:42 D-Dimer Quant Reviewed. mm11 12:51 T-Sheet-- Draft Copy was scanned into [employer] and attached to record. gb Administered Medications: 06/14 23:24 Drug: diphenhydrAMINE 25 mg [diphenhydramine 50 mg/mL injection solution (0.5 mL)] tm5 Route: IVP; Site: left hand; 06/15 00:25 Follow up: Response: No Adverse Reaction tm5 06/14 23:24 Drug: Famotidine 10 mg [famotidine 10 mg/mL intravenous solution] {Note: given IVPB in tm5 50cc NS over 30 minutes.} Route: IVPB; Infused Over: 30 mins; Site: left hand; 06/15 00:05 Follow up: IV Status: Completed infusion; IV Intake: 50ml tm5 00:55 Drug: NS 0.9% 1000 ml [sodium chloride 0.9 % intravenous solution] Route: IV; Rate: tm5 bolus; Site: left hand; 02:50 Follow up: IV Status: Completed infusion; IV Intake: 1000ml tm5 Signatures: Dispatcher [employer] EDTN Maria C García, Juan Francisco Reg Tameka King RN RN Zachary Mcclelland, DO mm11 Windy Pham, Reg Reg hs2 Ellie Malhotra,RN RN tm5 The chart was reviewed and I authenticate all verbal orders and agree with the evaluation and treatment provided.Attachments: 00:08 [facility] [place] Agreement hs2 12:51 T-Sheet-- Draft Copy gb Chart Complete [id number]
--- NOTE | 2016-06-17 03:59 | EDDOCDS ---
Nurse's Notes [facility] Name: Alexus Montague Age: 30 yrs Sex: Female : 1985 Arrival Date: 06/14/2016 Time: 22:30 Bed 17 Private MD: Fabricio Xiong A. Diagnosis: Allergic urticaria-Possibly due to Medrol Dose. Presentation: 06/14 22:46 Presenting complaint: Patient states: Taking methylprednisolone since yesterday. Took jo3 evening dose tonight at 2039 and upper arms and face are itchy and pt reports a tightness in her chest. Onset: The symptoms/episode began/occurred acutely, 2 hour(s) ago. This patient has not experienced a previous allergic reaction. Anaphylaxis evaluation, the patient reports or I have noted the following symptoms which indicate a significant risk of anaphylaxis: chest pain. Adult Sepsis Screening: The patient does not have new or worsening altered mentation. Patient's respiratory rate is less than 22. Systolic blood pressure is greater than 100. Patient has a qSOFA score of 0- Negative Sepsis Screen. Suicide/Homicide risk assessment- the patient denies having any suicidal and/or homicidal ideations and does not present with any other emotional, behavioral or mental health complaints. 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 Transition of care: patient was not received from another setting of care. 22:46 Acuity: MORENA Level 2 jo3 22:46 Method Of Arrival: Walkin/Carried/Asstd jo3 Triage Assessment: 22:50 General: Appears in no apparent distress, Behavior is appropriate for age, cooperative. jo3 HIV screening NA for this visit Offered previously. Neurological: Level of Consciousness is awake, alert, Oriented to person, place, time. Cardiovascular: Chest pain quality is tightness. Respiratory: Airway is patent Respiratory effort is even, unlabored, Reports. Derm: Skin is pink, warm & dry. 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 methylprednisolone 4 mg Oral tab 4 times per day 2. Astepro 0.15 % (205.5 mcg) nasal spry 1 spray 2 times per day - PMHx: PCOS; - PSHx: Right knee surgery; Cholecystectomy; - Social history: Smoking status: Patient uses tobacco products, light tobacco smoker. No barriers to communication noted, The patient speaks fluent Paraguayan, Speaks appropriately for age. - Family history: Not pertinent. - : The pt / caregiver states he / she is not on anticoagulants. Home medication list is obtained from the patient. - Exposure Risk Screening:: None identified. Screenin:09 Screening information is obtained from the patient. Fall risk: No risks identified. tm5 Assistance ADL's: requires no assistance with activities of daily living. Abuse/DV Screen: The patient / caregiver reports he/she is: not in a situation that causes fear, pain or injury. Nutritional screening: No deficits noted. Advance Directives: There is no active DNR order. home support is adequate. Assessment: 23:23 General: Appears in no apparent distress, Behavior is appropriate for age, cooperative. tm5 Pain: Denies pain. Neurological: Level of Consciousness is awake, alert, Oriented to person, place, time. Respiratory: Airway is patent Respiratory effort is even, unlabored, Respiratory pattern is regular, symmetrical, Breath sounds are clear bilaterally. GI: No deficits noted. : No deficits noted. Derm: Skin is pink, warm & dry. normal, cheeks flushed. 06/15 00:25 Reassessment: Patient appears in no apparent distress at this time. Patient states tm5 feeling better. Patient states symptoms have improved. 02:55 Reassessment: Patient appears in no apparent distress at this time. Patient states tm5 feeling better. Patient states symptoms have improved. Vital Signs: 06/14 22:32 BP 152 / 73; Pulse 90; Resp 18 S; Temp 97.6(O); Pulse Ox 99% on R/A; Weight 106.14 kg gr2 (R); Height 5 ft. 3 in. (160.02 cm) (R); Pain 2/10; 23:23 BP 148 / 72; Pulse 78; Resp 18; Pulse Ox 98% on R/A; tm5 06/15 00:55 BP 116 / 52; Pulse 78; Resp 18; Pulse Ox 98% on R/A; Pain 0/10; tm5 02:55 BP 118 / 52; Pulse 77; Resp 18; Temp 98.3(O); Pulse Ox 100% on R/A; Pain 0/10; tm5 06/14 22:32 Body Mass Index 41.45 (106.14 kg, 160.02 cm) gr2 Vitals: 06/14 22:32 Log In Time: June 14, 2016 at 22:32. gr2 ED Course: 22:31 Patient visited by Clem Ames. gr2 22:31 Fabricio Xiong is Private Physician. gr2 22:31 Patient moved to Waiting gr2 22:32 Patient visited by Clem Ames. gr2 22:33 Patient moved to Pre RCE gr2 22:48 Triage Initiated jo3 22:52 Patient moved to 17 jo3 22:55 Zachary Najera DO is Attending Physician. mm11 22:55 Patient visited by Zachary Najera DO. mm11 23:08 Patient visited by Zachary Najera DO. mm11 23:09 The patient / caregiver is instructed regarding the plan of care and ED course. tm5 23:22 Inserted saline lock: 20 gauge in left hand The patient tolerated the procedure well. tm5 No procedures done that require assistance. 06/15 00:08 [facility] Payment Agreement was scanned into [employer] and attached to record. hs2 00:25 Patient visited by Ellie Malhotra RN. tm5 00:37 Patient visited by Ellie Malhotra,RONEN. tm5 00:54 HCG,Serum Qualitative Sent. tm5 00:54 D-Dimer Quant Sent. tm5 00:55 BMP Sent. tm5 00:55 CBC with Diff Sent. tm5 00:55 Labs drawn. (by ED staff). Sent per order to lab. tm5 01:38 Patient moved to Radiology es5 01:49 Patient moved to 17 es5 01:50 Patient visited by Zachary Najera DO. mm11 01:55 Patient visited by Ellie Malhotra,RN. tm5 02:40 Fabricio Xiong is Referral Physician. mm11 02:55 Patient visited by Ellie Malhotra RN. tm5 02:55 Discontinued lock intact, bleeding controlled, pressure dressing applied, No tm5 redness/swelling at site. 03:40 Chest, 2 View (pa\E\lat) Returned. EDMS 12:51 T-Sheet-- Draft Copy was scanned into [employer] and attached to record. gb Administered Medications: 06/14 23:24 Drug: diphenhydrAMINE 25 mg [diphenhydramine 50 mg/mL injection solution (0.5 mL)] tm5 Route: IVP; Site: left hand; 06/15 00:25 Follow up: Response: No Adverse Reaction tm5 06/14 23:24 Drug: Famotidine 10 mg [famotidine 10 mg/mL intravenous solution] {Note: given IVPB in tm5 50cc NS over 30 minutes.} Route: IVPB; Infused Over: 30 mins; Site: left hand; 06/15 00:05 Follow up: IV Status: Completed infusion; IV Intake: 50ml tm5 00:55 Drug: NS 0.9% 1000 ml [sodium chloride 0.9 % intravenous solution] Route: IV; Rate: tm5 bolus; Site: left hand; 02:50 Follow up: IV Status: Completed infusion; IV Intake: 1000ml tm5 Intake: 00:05 IV: 50.00ml; Total: 50.00ml. tm5 02:50 IV: 1000.00ml; Total: 1050.00ml. tm5 Order Results: Lab Order: CBC with Diff; SPEC'M 06/15/16 00:53 Test: WHITE BLOOD COUNT; Value: 10.9; Range: 4.0-10.0; Abnormal: Above high normal; Units: K/mm3; Status: F Test: RED BLOOD COUNT; Value: 4.70; Range: 4.00-5.40; Units: M/mm3; Status: F Test: HEMOGLOBIN; Value: 13.0; Range: 12.0-16.0; Units: g/dl; Status: F Test: HEMATOCRIT; Value: 38.9; Range: 36.0-47.0; Units: %; Status: F Test: MEAN CORPUSCULAR VOLUME; Value: 82.9; Range: 80.0-96.0; Units: fl; Status: F Test: MEAN CORPUSCULAR HEMOGLOBIN; Value: 27.6; Range: 27.0-33.0; Units: pg; Status: F Test: MEAN CORPUSCULAR HGB CONC; Value: 33.3; Range: 32.0-36.5; Units: g/dl; Status: F Test: RED CELL DISTRIBUTION WIDTH; Value: 13.0; Range: 11.5-14.5; Units: %; Status: F Test: PLATELET COUNT, AUTOMATED; Value: 299; Range: 150-450; Units: k/mm3; Status: F Test: NEUTROPHILS %; Value: 80.2; Range: 36.0-66.0; Abnormal: Above high normal; Units: %; Status: F Test: LYMPH %; Value: 14.6; Range: 24.0-44.0; Abnormal: Below low normal; Units: %; Status: F Test: MONO %; Value: 3.2; Range: 0.0-5.0; Units: %; Status: F Test: EOS %; Value: 0.5; Range: 0.0-3.0; Units: %; Status: F Test: BASO %; Value: 0.2; Range: 0.0-1.0; Units: %; Status: F Test: LARGE UNSTAINED CELL %; Value: 1.2; Range: 0.0-4.0; Units: %; Status: F Test: NEUTROPHILS #; Value: 8.7; Range: 1.8-7.7; Abnormal: Above high normal; Units: K/mm3; Status: F Test: LYMPH #; Value: 1.6; Range: 1.5-4.5; Units: K/mm3; Status: F Test: MONO #; Value: 0.4; Range: 0.0-0.8; Units: K/mm3; Status: F Test: EOS #; Value: 0.1; Range: 0.0-0.50; Units: K/mm3; Status: F Test: BASO #; Value: 0.0; Range: 0.0-0.2; Units: K/mm3; Status: F Test: LARGE UNSTAINED CELL #; Value: 0.1; Range: 0.0-0.4; Units: K/mm3; Status: F Lab Order: [facility]; SPEC'M 06/15/16 00:53 Test: GLUCOSE, FASTING; Value: 109; Range: 70-105; Abnormal: Above high normal; Units: MG/DL; Status: F Test: BLOOD UREA NITROGEN; Value: 10; Range: 7-18; Units: MG/DL; Status: F Test: CREATININE FOR GFR; Value: 0.59; Range: 0.55-1.02; Units: MG/DL; Status: F Test: GLOMERULAR FILTRATION RATE; Value: > 60.0; Range: >60; Status: F Test: SODIUM LEVEL; Value: 140; Range: 136-145; Units: MEQ/L; Status: F Test: POTASSIUM SERUM; Value: 3.8; Range: 3.5-5.1; Units: MEQ/L; Status: F Test: CHLORIDE LEVEL; Value: 109; Range: 98-107; Abnormal: Above high normal; Units: MEQ/L; Status: F Test: CARBON DIOXIDE LEVEL; Value: 23; Range: 21-32; Units: MEQ/L; Status: F Test: ANION GAP; Value: 8; Range: 8-16; Units: MEQ/L; Status: F Test: CALCIUM LEVEL; Value: 8.4; Range: 8.5-10.1; Abnormal: Below low normal; Units: MG/DL; Status: F Test Note: ; Units are mL/min/1.73 m2 Chronic Kidney Disease Staging per NKF: Stage I & II GFR >=60 Normal to Mildly Decreased Stage III GFR 30-59 Moderately Decreased Stage IV GFR 15-29 Severely Decreased Stage V GFR <15 Very Little GFR Left ESRD GFR <15 on MANUFACTURED BUILDINGS REPAIRER Lab Order: D-Dimer Quant; SPEC'M 06/15/16 00:53 Test: D-DIMER QUANT; Value: 408.3; Range: <500; Units: ng/ml; Status: F Lab Order: HCG,Serum Qualitative; SPEC'M 06/15/16 00:53 Test: HCG, SERUM QUALITATIVE; Value: NEGATIVE; Range: NEGATIVE; Status: F Radiology Order: Chest, 2 View (pa\E\lat) Test: Chest, 2 View (pa\E\lat) REASON FOR EXAMINATION: Shortness of Breath; Clinical: Shortness of breath .; ; Comparison: 01/30/2013 .; ; Technique: PA and lateral.; ; Findings:; The mediastinum and cardiac silhouette are normal. The lung coello are clear and; without acute consolidation, effusion, or pneumothorax. The skeletal structures; are intact and normal.; ; Impression:; 1. No acute cardiopulmonary process.; ; ; Signed by; Omar Santamaria MD 06/15/2016 02:56 A; Outcome: 02:43 Discharge ordered by Provider. mm11 02:55 Discharge Assessment: Patient awake, alert and oriented x 3. No cognitive and/or tm5 functional deficits noted. Patient verbalized understanding of disposition instructions. patient administered narcotics - no. The following High Risk Discharge criteria are identified: None. Discharged to home ambulatory. Condition: good Condition: stable Condition: improved. Discharge instructions given to patient, Instructed on discharge instructions, follow up and referral plans. Demonstrated understanding of instructions, Pt was receptive of discharge instructions/ teaching. No special radiology studies were completed. Property :Personal belongings accompany Pt. 02:58 Patient left the ED. tm5 Signatures: Dispatcher [employer] EDMS Maria C García, Reg Reg gb Tameka King,RN RN jo3 Zachary Najera, DO mm11 Krissy Feldman es5 Clem Ames gr2 Windy Pham, Reg Reg hs2 Ellie Malhotra,RN RN tm5 Chart Complete MTDD
--- NOTE | 2016-06-17 03:59 | EDDOCDS ---
Physician Documentation [facility] Name: Alexus Montague Age: 30 yrs Sex: Female : 1985 Arrival Date: 06/14/2016 Time: 22:30 Bed 17 Private MD: Fabricio Xiong A. Disposition: 06/15/16 02:43 Discharged to Home/Self Care. Impression: Allergic urticaria - Possibly due to Medrol Dose.. - Condition is Stable. - Discharge Instructions: Allergies, Hives, Allergies, Ktyf-zh-Gnap, Hives, Rvyb-ve-Vozw. - Medication Reconciliation, Local Pharmacy Hours form. - Follow up: Fabricio Xiong; When: Call to arrange an appointment; Reason: Continuance of care. - Problem is an acute exacerbation. - Symptoms have improved. Historical: - Allergies: No known drug Allergies; - Home Meds: 1. methylprednisolone 4 mg Oral tab 4 times per day 2. Astepro 0.15 % (205.5 mcg) nasal spry 1 spray 2 times per day - PMHx: PCOS; - PSHx: Right knee surgery; Cholecystectomy; - Social history: Smoking status: Patient uses tobacco products, light tobacco smoker. No barriers to communication noted, The patient speaks fluent Sudanese, Speaks appropriately for age. - Family history: Not pertinent. - : The pt / caregiver states he / she is not on anticoagulants. Home medication list is obtained from the patient. - Exposure Risk Screening:: None identified. 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 3 in. (160.02 cm) (R); Pain 2/10; 23:23 BP 148 / 72; Pulse 78; Resp 18; Pulse Ox 98% on R/A; tm5 02/02 00:55 BP 116 / 52; Pulse 78; Resp 18; Pulse Ox 98% on R/A; Pain 0/10; tm5 02:55 BP 118 / 52; Pulse 77; Resp 18; Temp 98.3(O); Pulse Ox 100% on R/A; Pain 0/10; tm5 06/14 22:32 Body Mass Index 41.45 (106.14 kg, 160.02 cm) gr2 MDM: 06/14 23:09 IV Saline Lock ordered. mm11 23:09 diphenhydrAMINE 25 mg IVP once ordered. mm11 23:09 Famotidine 10 mg IVPB once over 30 mins; dilute in 50mL of NS ordered. mm11 23:38 Financial registration complete. hs2 06/15 00:08 [facility] Payment Agreement was scanned into [employer] and attached to record. hs2 00:39 NS 0.9% 1000 ml IV at bolus once ordered. mm11 00:40 CBC with Diff Ordered. EDMS 00:40 BMP Ordered. EDMS 00:40 D-Dimer Quant Ordered. EDMS 00:40 HCG,Serum Qualitative Ordered. EDMS 00:41 Chest, 2 View (pa\E\lat) Ordered. EDMS 01:31 CBC with Diff Reviewed. mm11 01:31 BMP Reviewed. mm11 01:31 HCG,Serum Qualitative Reviewed. mm11 01:42 D-Dimer Quant Reviewed. mm11 12:51 T-Sheet-- Draft Copy was scanned into [employer] and attached to record. gb Administered Medications: 06/14 23:24 Drug: diphenhydrAMINE 25 mg [diphenhydramine 50 mg/mL injection solution (0.5 mL)] tm5 Route: IVP; Site: left hand; 06/15 00:25 Follow up: Response: No Adverse Reaction tm5 06/14 23:24 Drug: Famotidine 10 mg [famotidine 10 mg/mL intravenous solution] {Note: given IVPB in tm5 50cc NS over 30 minutes.} Route: IVPB; Infused Over: 30 mins; Site: left hand; 06/15 00:05 Follow up: IV Status: Completed infusion; IV Intake: 50ml tm5 00:55 Drug: NS 0.9% 1000 ml [sodium chloride 0.9 % intravenous solution] Route: IV; Rate: tm5 bolus; Site: left hand; 02:50 Follow up: IV Status: Completed infusion; IV Intake: 1000ml tm5 Signatures: Dispatcher [employer] EDMD Maria C García, Juan Francisco Reg Tameka King RN RN Zachary Mcclelland, DO mm11 Windy Pham, Reg Reg hs2 Ellie Malhotra,RN RN tm5 The chart was reviewed and I authenticate all verbal orders and agree with the evaluation and treatment provided.Attachments: 00:08 [facility] Payment Agreement hs2 12:51 T-Sheet-- Draft Copy gb Chart Complete BHARATHD
== END 2016-06-15 02:58 | disposition home or self-care (01) ==
LOC: M ED 22:30
DX: L50.0 Allergic urticaria (principal); E28.2 Polycystic ovarian syndrome; F17.200 Nicotine dependence, unspecified, uncomplicated; Z79.52 Long term (current) use of systemic steroids; Z79.899 Other long term (current) drug therapy
CPT/HCPCS: 36415; 71020; 80048; 84703; 85025; 85379; 96361; 96365; 96375; 99284; J1200

== ENCOUNTER → 2016-07-18 | Outpatient (CLI) | payer OTHER ==
[~2016-07-18] MED LIST: NAPR500T PO; TYLE325T5 PO
[2016-07-18 17:03] LABS: CONTROL LINE MONO INT CTR LINE PRESENT
== END ==
LOC: M LAB 16:17
PROVIDERS: ATTEND Physician Assistant
DX: B27.90 Infectious mononucleosis, unspecified without complication (principal)

== ENCOUNTER 2016-07-22 12:17 | Emergency (ER) | payer OTHER ==
[~2016-07-22] VITALS: Ht 160 cm; Wt 106.1 kg
[2016-07-22 12:27] VITALS: BP 146/80
[2016-07-22] MEDS ORDERED: TYLE325T5 PO (15:44)
[2016-07-22] MEDS ORDERED: NAPR500T PO (15:45)
[2016-07-22] MEDS ORDERED: ACETAMINOPHEN 325 MG TAB PO ONE (15:45)
[2016-07-22] MEDS ORDERED: KETOROLAC 60 MG/2 ML VIAL (J1885) IM ONE (15:45)
--- NOTE | 2016-07-23 08:29 | REP ---
Pain after trauma. COMPARISON: No priors. FINDINGS: No acute fracture or destructive osseous lesion. The mortise is intact. Signed by Aditya Stubbs DO 07/23/2016 10:27 A
== END 2016-07-22 16:29 | disposition home or self-care (01) ==
LOC: M ED 14:54
DX: S93.401A Sprain of unspecified ligament of right ankle, initial encounter (principal); X50.0XXA Overexertion from strenuous movement or load, initial encounter; Y92.89 Other specified places as the place of occurrence of the external cause; Y93.89 Activity, other specified; Y99.8 Other external cause status; Z91.040 Latex allergy status; Z87.891 Personal history of nicotine dependence
CPT/HCPCS: 73610; 96372; 99283; J1885

== ENCOUNTER 2016-07-28 21:32 | Emergency (ER) | payer OTHER ==
[~2016-07-28] VITALS: Ht 160 cm; Wt 107.0 kg
[2016-07-28 21:33] VITALS: BP 171/87
== END 2016-07-29 01:37 | disposition left against medical advice (07) ==
LOC: M ED 23:34
DX: S99.919A Unspecified injury of unspecified ankle, initial encounter (principal); Z53.21 Procedure and treatment not carried out due to patient leaving prior to being seen by health care provider

== ENCOUNTER → 2016-07-29 | Outpatient (CLI) | payer OTHER ==
--- NOTE | 2016-07-29 12:41 | REP ---
Right foot series: Four views. History: Injury to the ankle. Findings: Four views of the right foot show overall normal mineralization. Bones joints and soft tissues are unremarkable. Impression: Negative right foot series. Signed by Russell Clements MD 07/29/2016 01:44 P
--- NOTE | 2016-07-29 12:42 | REP ---
Right ankle series: Four views. History: Injury to the foot and ankle. Findings: Four views of the right ankle are compared with the prior study from July 22, 2016. Ankle mortise is intact. No fracture is seen. Impression: No fracture noted. Signed by Russell Clements MD 07/29/2016 01:44 P
== END ==
LOC: M WUC 11:47
PROVIDERS: ATTEND Physician Assistant
DX: M25.571 Pain in right ankle and joints of right foot (principal)

== ENCOUNTER → 2017-01-26 | Outpatient (REF) | payer OTHER | LOC: M LAB REF 12:57 | PROVIDERS: ATTEND Advanced Practice Midwife | DX: Z12.4 Encounter for screening for malignant neoplasm of cervix (principal) ==

== ENCOUNTER → 2017-02-28 | Outpatient (REF) | payer OTHER ==
[2017-02-28 15:58] LABS: BASO # 0.1 10^3/uL (0.0-0.2); BASO % 0.6 % (0.0-1.0); EOS # 0.4 10^3/uL (0.0-0.50); EOS % 4.7 % (0.0-3.0); IMMATURE GRANULOCYTE % 0.1 % (0-0); LYMPH # 2.6 10^3/uL (1.5-4.5); LYMPH % 31.5 % (24.0-44.0); MEAN CORPUSCULAR HEMOGLOBIN 29.2 pg (27.0-33.0); MEAN CORPUSCULAR HGB CONC 33.2 g/dl (32.0-36.5); MEAN CORPUSCULAR VOLUME 87.8 fl (80.0-96.0); MONO # 0.6 10^3/uL (0.0-0.8); MONO % 6.9 % (0.0-5.0); NEUTROPHILS # 4.6 10^3/uL (1.8-7.7); NEUTROPHILS % 56.2 % (36.0-66.0); PLATELET COUNT, AUTOMATED 343 10^3/uL (150-450); RED CELL DISTRIBUTION WIDTH 13.2 % (11.5-14.5); WHITE BLOOD COUNT 8.3 10^3/uL (4.0-10.0)
[2017-02-28 16:16] LABS: ALBUMIN 3.4 GM/DL (3.2-5.2); ALBUMIN/GLOBULIN RATIO 1.03 (1.00-1.93); ALKALINE PHOSPHATASE 91 U/L (45-117); ALT/SGPT 26 U/L (12-78); ANION GAP 6 MEQ/L (8-16); AST/SGOT 13 U/L (15-37); BILIRUBIN,TOTAL 0.2 MG/DL (0.2-1.0); BLOOD UREA NITROGEN 9 MG/DL (7-18); CALCIUM LEVEL 8.7 MG/DL (8.5-10.1); CARBON DIOXIDE LEVEL 29 MEQ/L (21-32); CHLORIDE LEVEL 105 MEQ/L (98-107); CREATININE FOR GFR 0.71 MG/DL (0.55-1.02); GLOMERULAR FILTRATION RATE > 60.0 (>60); GLUCOSE, FASTING 104 MG/DL (70-105); POTASSIUM SERUM 3.8 MEQ/L (3.5-5.1); SODIUM LEVEL 140 MEQ/L (136-145); TOTAL PROTEIN 6.7 GM/DL (6.4-8.2)
== END ==
LOC: M LABDRAW1 13:31
PROVIDERS: ATTEND Family Medicine
DX: R53.83 Other fatigue (principal)

== ENCOUNTER → 2017-03-07 | Outpatient (REF) | payer OTHER | LOC: M LAB REF 17:10 | PROVIDERS: ATTEND Obstetrics & Gynecology | DX: R87.612 Low grade squamous intraepithelial lesion on cytologic smear of cervix (LGSIL) (principal) ==

== ENCOUNTER 2017-04-13 02:15 | Emergency (ER) | payer OTHER ==
[~2017-04-13] VITALS: Ht 160 cm; Wt 109.1 kg
[2017-04-13] MEDS ORDERED: PRENTAB16 PO (02:22)
--- NOTE | 2017-04-13 04:00 | REPUSA ---
CLINICAL HISTORY: determination. TECHNIQUE: Transabdominal ultrasound of the pelvis was performed. FINDINGS: Single, live intrauterine gestation. The estimated gestation age is 6 weeks and 3 days. [place]-rump length measurement is 6 mm. heart rate 137 beats per minute. Small bilateral ovarian cysts are noted. Estimated delivery date 12/05/19 18. IMPRESSION: Single, live intrauterine gestation. No abnormality seen.
[2017-04-13] MEDS ORDERED: COLA100C5 PO (04:16)
[2017-04-13 04:34] VITALS: BP 118/63
== END 2017-04-13 04:38 | disposition home or self-care (01) ==
LOC: EDBD 02:15 → M ED 02:15
DX: O99.611 Diseases of the digestive system complicating pregnancy, first trimester (principal); K59.00 Constipation, unspecified; Z3A.01 Less than 8 weeks gestation of pregnancy; Z91.040 Latex allergy status

== ENCOUNTER → 2017-08-09 | Outpatient (CLI) | payer OTHER | LOC: M SLEEP HO 12:20 | DX: G47.30 Sleep apnea, unspecified (principal) | CPT/HCPCS: G0399 ==

== ENCOUNTER 2017-12-14 21:55 | Emergency (ER) | payer OTHER | END 2017-12-15 01:04 | disposition left against medical advice (07) | LOC: M ED 21:55 | DX: R21 Rash and other nonspecific skin eruption (principal); Z53.21 Procedure and treatment not carried out due to patient leaving prior to being seen by health care provider ==

== ENCOUNTER 2017-12-15 08:05 | Emergency (ER) | payer OTHER ==
[2017-12-15] MEDS: IBUPROFEN 800 MG TAB PO (09:45)
[2017-12-15] MEDS: CLINDAMYCIN 150 MG CAP PO (09:46)
== END 2017-12-15 09:46 | disposition home or self-care (01) ==
LOC: M ED 08:05
DX: L08.9 Local infection of the skin and subcutaneous tissue, unspecified (principal); Z91.040 Latex allergy status
CPT/HCPCS: 87186

== ENCOUNTER → 2018-02-13 | Outpatient (CLI) | payer OTHER ==
[2018-02-13 18:20] LABS: FREE T4 0.98 NG/DL (0.76-1.46)
[2018-02-19 10:43] LABS: HPV LOW VOL RFLX Negative (Negative)
== END ==
LOC: M SMT 14:04
DX: E04.9 Nontoxic goiter, unspecified (principal); Z12.4 Encounter for screening for malignant neoplasm of cervix
CPT/HCPCS: 84443

== ENCOUNTER 2018-04-17 11:44 | Emergency (ER) | payer OTHER ==
[2018-04-17] MEDS: ONDANSETRON 4 MG ORAL DISINTEGRATING TAB (Q0162 PER 1MG) PO (12:43)
== END 2018-04-17 12:47 | disposition home or self-care (01) ==
LOC: M ED 11:44
DX: H65.03 Acute serous otitis media, bilateral (principal); E28.2 Polycystic ovarian syndrome; Z79.899 Other long term (current) drug therapy; Z91.040 Latex allergy status
CPT/HCPCS: Q0162

== ENCOUNTER 2018-07-11 23:24 | Emergency (ER) | payer OTHER, SELFPAY ==
[~2018-07-11] VITALS: Ht 160 cm; Wt 113.6 kg
[2018-07-11 23:24] VITALS: BP 139/85
[~2018-07-11 23:24] MED LIST changes: +CLIN150C14 PO; +COLA100C5 PO; +IBUP80TA PO; +METF500T13 PO; +NAPR-50 PO; -NAPR500T PO; +PRENTAB16 PO; +SUDA30TA8 PO; +ZOFR4TAB14 PO
[2018-07-12] MEDS ORDERED: methylPREDNISolone INJ 125 MG/2 ML VIAL (J2930) IV ONE (01:00)
[2018-07-12] MEDS ORDERED: KETOROLAC 30 MG/ML VIAL (J1885) IV ONE (01:00)
[2018-07-12] MEDS ORDERED: NS 1,000 ML IV ONE (01:00)
[2018-07-12 01:09] LABS: BASO # 0.1 10^3/uL (0.0-0.2); BASO % 0.5 % (0.0-1.0); EOS # 0.4 10^3/uL (0.0-0.50); HEMATOCRIT 37.2 % (36.0-47.0); HEMOGLOBIN 12.3 g/dl (12.0-15.5); LYMPH # 2.7 10^3/uL (1.5-4.5); LYMPH % 20.1 % (24.0-44.0); MEAN CORPUSCULAR HEMOGLOBIN 28.4 pg (27.0-33.0); MEAN CORPUSCULAR HGB CONC 33.1 g/dl (32.0-36.5); MEAN CORPUSCULAR VOLUME 85.9 fl (80.0-96.0); MONO # 0.9 10^3/uL (0.0-0.8); MONO % 6.4 % (0.0-5.0); NEUTROPHILS # 9.3 10^3/uL (1.8-7.7); NEUTROPHILS % 69.5 % (36.0-66.0); PLATELET COUNT, AUTOMATED 368 10^3/uL (150-450); RED BLOOD COUNT 4.33 10^6/uL (4.00-5.40); WHITE BLOOD COUNT 13.3 10^3/uL (4.0-10.0)
[2018-07-12] MEDS: IPRATROPIUM 0.5MG/ALBUTEROL 2.5MG INH SOL UD 3ML (DUONEB)(J7620) NEB PRN ×3 (01:13→02:35)
[2018-07-12 01:27] LABS: HCG, SERUM QUALITATIVE NEGATIVE (NEGATIVE)
[2018-07-12 01:37] LABS: BLOOD UREA NITROGEN 5 MG/DL (7-18); CALCIUM LEVEL 8.7 MG/DL (8.5-10.1); CARBON DIOXIDE LEVEL 24 MEQ/L (21-32); CHLORIDE LEVEL 106 MEQ/L (98-107); CPK CREATINE PHOSPHOKINASE 156 U/L (26-192); CREATININE FOR GFR 0.66 MG/DL (0.55-1.30); GLOMERULAR FILTRATION RATE > 60.0 (>60); GLUCOSE, FASTING 112 MG/DL (70-100); MB/CK RELATIVE INDEX 0.83 (< OR =4); POTASSIUM SERUM 3.9 MEQ/L (3.5-5.1); SODIUM LEVEL 137 MEQ/L (136-145); TROPONIN I < 0.02 NG/ML (< 0.10)
[2018-07-12 01:39] LABS: INFLUENZA A AMPLIFICATION NEGATIVE (NEGATIVE); INFLUENZA B AMPLIFICATION NEGATIVE (NEGATIVE)
[2018-07-12] MEDS ORDERED: NAPR-50 PO (01:59)
[2018-07-12] MEDS ORDERED: TESS100C PO (01:59)
[2018-07-12] MEDS ORDERED: CHERSYP3 PO (01:59)
[2018-07-12] MEDS ORDERED: PRED20TA PO (01:59)
[2018-07-12] MEDS ORDERED: PROAAER10 INH (01:59)
[2018-07-12] MEDS ORDERED: ALBUTEROL 90 MCG/ACT 8GM HFA INHALER INH ONE (02:00)
--- NOTE | 2018-07-12 07:57 | REP ---
Clinical: Cough and dyspnea . Comparison: 06/15/2016 . Technique: PA and lateral. Findings: The mediastinum and cardiac silhouette are normal. Lateral view cannot exclude a subtle amount of right middle lobe versus lingular atelectasis. No further consolidation, effusion, or pneumothorax. Skeletal structures intact. Impression: 1. Lateral view raises the possibility of right middle lobe versus lingular atelectasis. Electronically Signed by Omar Santamaria MD 07/12/2018 07:48 A
--- NOTE | 2018-07-13 07:45 | ED PDOC ---
Post-Departure Follow-Up dr conde faxed formal report of cxr for fu Zoila Moncada MD Jul 13, 2018 07:45
--- NOTE | 2018-07-13 10:15 | ECGEPIP ---
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
== END 2018-07-12 03:08 | disposition home or self-care (01) ==
LOC: M ED 23:24
DX: J06.9 Acute upper respiratory infection, unspecified (principal); B34.9 Viral infection, unspecified; R94.31 Abnormal electrocardiogram [ECG] [EKG]; E11.9 Type 2 diabetes mellitus without complications; F17.200 Nicotine dependence, unspecified, uncomplicated; Z91.040 Latex allergy status; Z79.84 Long term (current) use of oral hypoglycemic drugs
CPT/HCPCS: 71046; 80048; 81025; 82550; 82553; 84484; 84703; 85025; 87502; 93005; 96374; 96375; 99284; J1885; J2930

== ENCOUNTER → 2018-10-03 | Outpatient (CLI) | payer OTHER ==
[~2018-10-03] MED LIST changes: +CHERSYP3 PO; -NAPR-50 PO; +NAPR-837 PO; +PRED20TA PO; +PROAAER10 INH; +TESS100C PO
== END ==
LOC: M SMT 09:22
PROVIDERS: ATTEND Specialist
DX: O02.1 Missed abortion (principal)

== ENCOUNTER → 2019-02-04 | Outpatient (CLI) | payer OTHER ==
--- NOTE | 2019-02-05 07:38 | REP ---
Clinical: Pelvic and perineal pain . Technique: Transabdominal pelvic ultrasound followed by transvaginal examination for better evaluation of the endometrium and adnexa with color Doppler evaluation of the ovaries. Comparison: 07/20/2016 Findings: Bladder is normal in appearance and measures approximately 9.2 x 5.0 x 8.7 cm Normal retroflexed uterus measures 7.5 x 5.6 x 5.3 cm. The endometrial complex measures 18.3 mm thickness. No discrete uterine or endometrial abnormalities are appreciated. Bilateral ovaries are normal in appearance and vascularity without evidence for torsion. Right ovary measures 3.1 x 2.3 x 2.6 cm ; R I = 0.53 . Left ovary measures 6.7 x 5.1 x 5.4 cm and includes 4.9 x 4.6 x 4.7 cm ; R I = 0.63 . No pelvic fluid or adnexal mass lesion . Impression: 1. 4.9 cm left ovarian cyst possibly physiologic. Consider reevaluation in 4-6 weeks to evaluate for resolution. 2. Thickened endometrial complex likely related to menstrual cycle. Electronically Signed by Omar Santamaria MD 02/05/2019 07:29 A
== END ==
LOC: M RAD 17:20
PROVIDERS: ATTEND Advanced Practice Midwife
DX: R10.2 Pelvic and perineal pain (principal); N83.202 Unspecified ovarian cyst, left side

== ENCOUNTER → 2019-02-23 | Outpatient (CLI) | payer OTHER ==
[2019-02-23 10:58] LABS: HEMATOCRIT 40.7 % (36.0-47.0); HEMOGLOBIN 13.4 g/dl (12.0-15.5); MEAN CORPUSCULAR HEMOGLOBIN 28.6 pg (27.0-33.0); MEAN CORPUSCULAR HGB CONC 32.9 g/dl (32.0-36.5); PLATELET COUNT, AUTOMATED 358 10^3/uL (150-450); RED BLOOD COUNT 4.68 10^6/uL (4.00-5.40); WHITE BLOOD COUNT 8.6 10^3/uL (4.0-10.0)
[2019-02-23 11:31] LABS: FREE T4 0.78 NG/DL (0.76-1.46); THYROID STIMULATING HORMONE 1.21 uIU/ML (0.358-3.740)
[2019-02-24 10:17] LABS: PROLACTIN 6.2 NG/ML
[2019-02-24 10:18] LABS: ESTRADIOL 21.4 PG/ML
[2019-02-26 00:08] LABS: DEHYDROEPIANDROSTERONE SULFATE 122.5 ug/dL (57.3-279.2); TESTOSTERONE FREE (DIRECT) 1.5 pg/mL (0.0-4.2)
== END ==
LOC: M LAB 09:50
PROVIDERS: ATTEND Advanced Practice Midwife
DX: E28.2 Polycystic ovarian syndrome (principal)

== ENCOUNTER → 2019-03-13 | Outpatient (CLI) | payer OTHER | LOC: M SMT 15:51 | PROVIDERS: ATTEND Advanced Practice Midwife | DX: E28.2 Polycystic ovarian syndrome (principal) ==

== ENCOUNTER → 2019-09-04 | Outpatient (REF) | payer OTHER | LOC: M PLALAB 09:51 | PROVIDERS: ATTEND Obstetrics & Gynecology | DX: Z36.89 Encounter for other specified antenatal screening (principal); Z3A.00 Weeks of gestation of pregnancy not specified ==

== ENCOUNTER → 2019-09-06 | Outpatient (CLI) | payer OTHER | LOC: M WUC 10:10 | PROVIDERS: ATTEND Obstetrics & Gynecology | DX: Z32.01 Encounter for pregnancy test, result positive (principal) ==

== ENCOUNTER → 2020-08-13 | Outpatient (REF) | payer MEDICAID, OTHER, SELFPAY ==
[~2020-08-13] MED LIST changes: -CLIN150C14 PO; +CLIN150C15 PO
[2020-08-13 14:06] LABS: HEMOGLOBIN 12.9 g/dl (12.0-15.5); MEAN CORPUSCULAR HEMOGLOBIN 27.3 pg (27.0-33.0); MEAN CORPUSCULAR HGB CONC 32.3 g/dl (32.0-36.5); MEAN CORPUSCULAR VOLUME 84.6 fl (80.0-96.0); PLATELET COUNT, AUTOMATED 340 10^3/uL (150-450); RED BLOOD COUNT 4.73 10^6/uL (4.00-5.40)
[2020-08-13 14:32] LABS: HEMOGLOBIN A1c 5.6 %
[2020-08-13 14:34] LABS: ALT/SGPT 19 U/L (12-78); BILIRUBIN,TOTAL 0.1 MG/DL (0.2-1.0); GLOMERULAR FILTRATION RATE > 60.0 (>60); GLUCOSE CHALLENGE TEST 1 HOUR 152 MG/DL (LESS THAN 140); LDH LACTATE DEHYDROGENASE 122 U/L (84-246)
[2020-08-13 14:51] LABS: TOTAL PROTEIN,RANDOM URINE 22.1 MG/DL (0.0-12.0)
[2020-08-13 15:32] LABS: HEPATITIS C VIRUS ABY INDEX 0.1 INDEX (<0.8)
[2020-08-13 15:33] LABS: HIV 1&2 SCREEN CENTAUR NEGATIVE (NEGATIVE)
== END ==
LOC: M PLALAB 10:11
PROVIDERS: ATTEND Advanced Practice Midwife
DX: Z36.89 Encounter for other specified antenatal screening (principal); Z3A.08 8 weeks gestation of pregnancy

== ENCOUNTER → 2020-08-20 | Outpatient (CLI) | payer MEDICAID, SELFPAY | LOC: M LAB 07:15 | PROVIDERS: ATTEND Advanced Practice Midwife | DX: O09.529 Supervision of elderly multigravida, unspecified trimester (principal) ==

== ENCOUNTER → 2020-10-29 | Outpatient (CLI) | payer MEDICAID, OTHER ==
--- NOTE | 2020-10-29 16:23 | REP ---
INDICATION: ANATOMY FILEMON 03/23/21 PREEXISTING DM AFFECTING . COMPARISON: None. TECHNIQUE: Transabdominal FINDINGS: Multiple ultrasonographic images of the gravid uterus shows a single living intrauterine gestation in variable position. The placenta is anterior and not low-lying. The cervix measures 4.1 cm in length and is closed. Doppler interrogation of the heart shows a heart rate of 149 beats per minute. BPD: 4.3 cm 18 weeks 6 days HC: 16.0 cm 18 weeks 6 days AC: 13.5 cm 19 weeks 0 days FL: 2.9 cm 19 weeks 0 days Estimated weight is 266 g which is at the 28th percentile for a 19 week 2 day gestational age. anatomical screen was attempted but only optimally visualized the cerebellum, cisterna magna, upper lip, and three-vessel umbilical cord. The remainder of the anatomical screen was suboptimal IMPRESSION: Single living intrauterine gestation as described above with an estimated gestational age of 19 weeks 0 days via composite criteria and an estimated date of delivery of 03/25/2021 by today's exam. No anomalies were detected, however, I recommend a follow-up examination at 20-22 weeks gestation to complete the anatomical screen. <Electronically signed by Aditya Stubbs > 10/29/20 [id number]
== END ==
LOC: M WHC 15:04
PROVIDERS: ATTEND Obstetrics & Gynecology
DX: Z34.82 Encounter for supervision of other normal pregnancy, second trimester (principal)

== ENCOUNTER → 2020-12-01 | Outpatient (CLI) | payer OTHER ==
--- NOTE | 2020-12-01 14:50 | REP ---
INDICATION: F/U ANATOMY. COMPARISON: Comparison study October 29, 2020.. TECHNIQUE: Transabdominal obstetric sonography. FINDINGS: Scanning through the gravid uterus demonstrates a viable single intrauterine gestation in a breech lie. motion is observed and heart rate is recorded at 135 beats per minute. A posterior placenta is seen, grade 0, without evidence of placenta previa. Closed cervical length is measured at 4.5 cm transabdominally. No extrauterine abnormality is observed. Amniotic fluid is subjectively normal. No anomaly is seen. The following anatomic structures are identified and felt to be sonographically unremarkable: cranium, choroid plexus, cavum, cerebellum and posterior fossa, face and profile, lungs, four-chamber heart with left and right ventricular outflow tract views, diaphragm, left-sided stomach, abdominal wall cord insertion, three-vessel umbilical cord, kidneys and bladder, spine, and upper and lower extremities. Biometry chart: BPD 5.8 cm, 23 weeks 6 days Head circumference 22.2 cm, 24 weeks 2 days Abdominal circumference 19.3 cm, 24 weeks 0 days Femur length 4.3 cm, 23 weeks 6 days Humeral length 3.9 cm, 24 weeks 0 days HC AC ratio normal 1.15 Cephalic index normal 0.72 Estimated weight 449 g, 1 lb 6 oz, 41st percentile for 24 weeks 0 days IMPRESSION: Viable single intrauterine gestation at 24 weeks 0 days by today's composite sonographic criteria. FILEMON by today's sonography 23 March 2021. No complication identified. Expected gestational age estimate based on known FILEMON of 23 March 2021 is 24 weeks 0 days. In conjunction with the prior study, anatomic survey is felt to be complete. <Electronically signed by Abhijit Clements > 12/01/20 [id number]
== END ==
LOC: M WHC 14:00
PROVIDERS: ATTEND Advanced Practice Midwife
DX: Z34.82 Encounter for supervision of other normal pregnancy, second trimester (principal)

== ENCOUNTER → 2021-01-14 | Outpatient (CLI) | payer OTHER ==
[~2021-01-14] MED LIST changes: -CLIN150C15 PO; +CLIN150C17 PO
--- NOTE | 2021-01-14 11:17 | REP ---
INDICATION: BPP AND GROWTH GESTATIONAL DIABETES. COMPARISON: Comparison ultrasound is from December 01, 2020. TECHNIQUE: Transabdominal obstetric sonography. FINDINGS: Scanning through the gravid uterus demonstrates a viable single intrauterine gestation in cephalic lie. motion is observed and heart rate is recorded at 155 beats per minute. A anterior placenta is seen, grade 2, without evidence of placenta previa. Closed cervical length is measured at 5.9 cm transabdominally. No extrauterine abnormality is observed. Amniotic fluid is subjectively polyhydramnios. LUIS 24.9 cm (8.9-23.5 cm). Biometry chart: BPD 7.5 cm, 30 weeks 1 day Head circumference 28.6 cm, 31 weeks 3 days Abdominal circumference 26.3 cm, 30 weeks 3 days Femur length 5.7 cm, 30 weeks 1 day Humeral length 5.1 cm, 30 weeks 0 days HC AC ratio normal 1.09 Cephalic index normal 0.72 Estimated weight 1568 g, 3 lb 7 oz, 42nd percentile for 30 weeks 2 days SD ratio in the umbilical cord artery by Doppler normal at 3.0 Biophysical profile score 8 out of a possible 8 LUIS 24.9 cm. IMPRESSION: Viable single intrauterine gestation at 30 weeks 3 days by today's composite sonographic criteria. FILEMON by today's sonography March 22, 2021. No complication identified. Expected gestational age estimate based on known FILEMON of 23 March 2021 is 30 weeks 2 days. Appropriate interval growth. Polyhydramnios. <Electronically signed by Abhijit Clements > 01/14/21 [id number]
== END ==
LOC: M WHC 09:20
PROVIDERS: ATTEND Advanced Practice Midwife
DX: O24.313 Unspecified pre-existing diabetes mellitus in pregnancy, third trimester (principal); Z3A.30 30 weeks gestation of pregnancy

== ENCOUNTER → 2021-01-21 | Outpatient (CLI) | payer OTHER ==
--- NOTE | 2021-01-21 11:07 | REP ---
INDICATION: WEEKLY BPP GESTATIONAL DIABETES. COMPARISON: 01/14/2021. TECHNIQUE: Real-time sonographic evaluation of gravid uterus. FINDINGS: There is a single living intrauterine gestation. The estimated gestational age is 31 weeks 2 days, EDC 03/23/2021. position is cephalic. Placenta is anterior and grade 2 with no previa. heart rate 149 beats per minute. Amniotic fluid is within normal limits. LUIS 18.4, normal 8.7-23.9. Biophysical profile score 8/8. SD ratio in the umbilical artery is 2.35, normal 1.88-3.95. RI 0.57, normal 0.51-0.76. IMPRESSION: Biophysical profile score 8/8. <Electronically signed by Alexey Chen > 01/21/21 [id number]
== END ==
LOC: M WHC 10:00
PROVIDERS: ATTEND Advanced Practice Midwife
DX: O24.419 Gestational diabetes mellitus in pregnancy, unspecified control (principal); Z3A.31 31 weeks gestation of pregnancy

== ENCOUNTER → 2021-01-28 | Outpatient (CLI) | payer OTHER ==
--- NOTE | 2021-01-28 11:49 | REP ---
INDICATION: BPP/GEST DIABETES. COMPARISON: 01/21/2021. TECHNIQUE: Real-time sonographic evaluation of gravid uterus performed. FINDINGS: There is a single living intrauterine gestation. The estimated gestational age is reportedly 32 weeks 2 days, EDC 03/23/2021. position is cephalic. Placenta is anterior and grade 1 with no previa. heart rate 139 beats per minute. Amniotic fluid within normal limits. LUIS 19.5, normal range 8.5-24.3. biophysical profile score 8/8. Cervix is closed measures 3.7 cm in length. There is a cystic structure in the maternal left adnexa 4.9 x 4.6 x 4.6 cm. IMPRESSION: Biophysical profile score 8/8. Maternal left adnexal cyst 4.9 cm, follow-up recommended. <Electronically signed by Alexey Chen > 01/28/21 1142
== END ==
LOC: M WHC 09:59
PROVIDERS: ATTEND Advanced Practice Midwife
DX: O24.319 Unspecified pre-existing diabetes mellitus in pregnancy, unspecified trimester (principal); Z3A.00 Weeks of gestation of pregnancy not specified

== ENCOUNTER → 2021-02-04 | Outpatient (CLI) | payer OTHER ==
--- NOTE | 2021-02-04 11:48 | REP ---
INDICATION: BPP, GROWTH, GESTATIONAL DIABETES. COMPARISON: January 28, 2021. TECHNIQUE: Limited transabdominal obstetric sonography. FINDINGS: Scanning through the gravid uterus demonstrates a single living intrauterine gestation in a transverse lie. heart rate is recorded at 143 beats per minute. Anterior grade 2 placenta is seen without evidence of placenta previa. Closed cervical length is not seen. Amniotic fluid is subjectively normal. LUIS is normal at 15.1 cm. Biophysical profile score is 8 out of a possible 8. SD ratio in the umbilical cord artery by Doppler is normal at 2.41. Biometry chart: BPD 8.3 cm, 33 weeks 4 days Head circumference 30.0 cm, 33 weeks 2 days Abdominal circumference 29.8 cm, 33 weeks 6 days Femur length 6.5 cm, 33 weeks 2 days Humeral length 5.7 cm, 33 weeks 0 days HC AC ratio normal 1.01 Cephalic index normal 0.78 Estimated weight 2229 g, 4 lb 14 oz, 51st percentile for 33 weeks 2 days IMPRESSION: Viable single intrauterine gestation at 33 weeks 3 days by today's composite criteria. FILEMON by today's criteria 22 March 2021. Expected gestational age estimate based on known FILEMON of 23 March 2021 is 33 weeks 2 days. Appropriate interval growth. <Electronically signed by Abhijit Clements > 02/04/21 2524
== END ==
LOC: M WHC 09:47
PROVIDERS: ATTEND Advanced Practice Midwife
DX: O24.319 Unspecified pre-existing diabetes mellitus in pregnancy, unspecified trimester (principal)

== ENCOUNTER 2021-02-11 00:11 | Inpatient (IN) | payer OTHER ==
[~2021-02-11] VITALS: Ht 160 cm; Wt 136.4 kg
[2021-02-11] VITALS (25 sets, daily range): BP systolic 90–200; BP diastolic 48–93
[2021-02-11] MEDS ORDERED: dexameTHASONE 4 MG/ML 1ML VIAL (J1100 PER 1MG) IV ONE (00:30)
[2021-02-11 00:38] LABS: INR 0.96; PROTHROMBIN TIME 13.2 SECONDS (12.7-14.5)
[2021-02-11 00:39] LABS: PARTIAL THROMBOPLASTIN TIME 40.4 SECONDS (25.9-37.0)
[2021-02-11 00:41] LABS: D-DIMER QUANT 1924.27 ng/ml (<500); HEMOGLOBIN 11.4 g/dl (12.0-15.5); LYMPH # 0.8 10^3/uL (1.5-5.0); LYMPH % 13.9 % (24.0-44.0); MEAN CORPUSCULAR HEMOGLOBIN 26.6 pg (27.0-33.0); MEAN CORPUSCULAR HGB CONC 33.5 g/dl (32.0-36.5); MEAN CORPUSCULAR VOLUME 79.3 fl (80.0-96.0); MONO # 0.2 10^3/uL (0.0-0.8); NEUTROPHILS # 4.4 10^3/uL (1.5-8.5); PLATELET COUNT, AUTOMATED 225 10^3/uL (150-450); RED BLOOD COUNT 4.29 10^6/uL (4.00-5.40); WHITE BLOOD COUNT 5.4 10^3/uL (4.0-10.0)
[2021-02-11] MEDS ORDERED: ACETAMINOPHEN TAB 650MG DOSE (2X325MG) PO ONE (00:45)
[2021-02-11 01:03] LABS: ALT/SGPT 33 U/L (12-78); BILIRUBIN,DIRECT 0.1 MG/DL (0.0-0.2); BILIRUBIN,TOTAL 0.3 MG/DL (0.2-1.0); BLOOD UREA NITROGEN 6 MG/DL (7-18); C REACTIVE PROTEIN QUANTITATIV 7.73 MG/DL (0.00-0.30); CALCIUM LEVEL 9.2 MG/DL (8.5-10.1); CARBON DIOXIDE LEVEL 21 MEQ/L (21-32); CHLORIDE LEVEL 100 MEQ/L (98-107); CK-MB VALUE MASS 3.4 NG/ML (<3.6); CPK CREATINE PHOSPHOKINASE 249 U/L (26-192); CREATININE FOR GFR 0.66 MG/DL (0.55-1.30); FERRITIN 60 NG/ML (8-252); GLOMERULAR FILTRATION RATE > 60.0 (>60); GLUCOSE, FASTING 128 MG/DL (70-100); LDH LACTATE DEHYDROGENASE 282 U/L (84-246); MB/CK RELATIVE INDEX 1.37 (< OR =4); NT-PRO BNP 15 PG/ML (<125); POTASSIUM SERUM 3.2 MEQ/L (3.5-5.1); SODIUM LEVEL 132 MEQ/L (136-145); THYROXINE (T4) 17.2 UG/DL (4.5-12.0); TOTAL PROTEIN 6.3 GM/DL (6.4-8.2); TROPONIN I < 0.02 NG/ML (< 0.10)
[2021-02-11] MEDS ORDERED: ISOVUE-370 76% 100ML VIAL As Ordered ONE (02:35)
--- NOTE | 2021-02-11 03:01 | REPVR ---
PROCEDURE INFORMATION: Exam: XR Chest Exam date and time: 02/11/2021 1:14 AM Age: 35 years old Clinical indication: Other: Covid positive; Additional info: Dyspnea/cough (covid positive) TECHNIQUE: Imaging protocol: XR of the chest. Views: 1 view. COMPARISON: CR Chest, 2 view PA, Lat 07/12/2018 1:41 AM FINDINGS: Lungs: Patchy peripherally distributed opacities more pronounced in the right lung. Pleural spaces: Unremarkable. No pleural effusion. No pneumothorax. Heart/Mediastinum: Unremarkable. No cardiomegaly. Bones/joints: Unremarkable. IMPRESSION: Patchy peripherally distributed opacities more pronounced in the right lung. Electronically signed by: Felix Hernandez On 02/11/2021 03:00:53 AM
--- NOTE | 2021-02-11 03:26 | REPVR ---
PROCEDURE INFORMATION: Exam: CTA Chest With Contrast Exam date and time: 02/11/2021 2:33 AM Age: 35 years old Clinical indication: Shortness of breath; Additional info: Covid, chest pain TECHNIQUE: Imaging protocol: Computed tomographic angiography of the chest with contrast. 3D rendering (Not supervised by radiologist): MIP and/or 3D reconstructed images were created by the technologist. Radiation optimization: All CT scans at this facility use at least one of these dose optimization techniques: automated exposure control; mA and/or kV adjustment per patient size (includes targeted exams where dose is matched to clinical indication); or iterative reconstruction. Contrast material: ISO; Contrast volume: 75 ml; Contrast route: INTRAVENOUS (IV); COMPARISON: CR PORTABLE CHEST X-RAY 02/11/2021 12:48 AM FINDINGS: Pulmonary arteries: Normal. No pulmonary emboli. Aorta: Unremarkable. No aortic aneurysm. No aortic dissection. Lungs: Unremarkable. No consolidation. No masses. Pleural spaces: Unremarkable. No pneumothorax. No pleural effusion. Heart: Unremarkable. No cardiomegaly. No pericardial effusion. Lymph nodes: Unremarkable. No enlarged lymph nodes. Diaphragm: Small hiatal hernia. Eventration of the right hemidiaphragm. Liver: Hepatomegaly and steatosis. Gallbladder and bile ducts: Status post cholecystectomy. Spleen: Mild splenomegaly. Kidneys and ureters: Nonobstructive left renal calculus. Bones/joints: Multilevel degenerative disease of the thoracic spine. Soft tissues: Unremarkable. Other findings: Extensive patchy bilateral airspace and ground-glass opacities. IMPRESSION: Extensive patchy bilateral airspace and ground-glass opacities. No acute pulmonary embolic disease. Hepatosplenomegaly and steatosis. Electronically signed by: Felix Hernandez On 02/11/2021 03:26:07 AM
[2021-02-11] MEDS ORDERED: DEXTROSE 50% 50 ML SYRINGE IV PRN (03:55)
[2021-02-11] MEDS ORDERED: GLUCOSE 4GM CHEW TABLET PO PRN (03:55)
[2021-02-11] MEDS ORDERED: GLUCAGON INJ 1MG VIAL SC PRN (03:55)
--- NOTE | 2021-02-11 04:30 | CR.PDOC ---
General Date of Consultation: Feb 11, 2021 Consultation REASON FOR CONSULTATION/CHIEF COMPLAINT: COVID-19, hypoxia HISTORY OF PRESENT ILLNESS: Patient is a 35-year-old female, at 34W2D gestation, brought to ER by EMS for worsening hypoxia. She was diagnosed with Covid-19 on 02/09/21. Presently saturating 96% on a non-rebreather. Symptom onset ~7-9 days ago. She is alert and oriented. C/o cough, productive of clear sputum. Denies CP, palpitations, n/v/d. Patient is unvaccinated. Low grade temp at 100F. No leukocytosis. Inflammatory markers elevated in setting of covid. Patient is being admitted to [facility] service. Hospitalist is consulted for medical recommendations for covid-19 management. ALLERGIES: Please see below. HOME MEDICATIONS: Please see below. PAST MEDICAL HISTORY: Gestational diabetes Obesity, BMI 53.3 PCOS Hydradinits supurativa PAST SURGICAL HISTORY: Cholecystectomy Knee surgery FAMILY HISTORY: Mother: HTN SOCIAL HISTORY: Former smoker Denies etoh use Denies illcit drug use REVIEW OF SYSTEMS: 10 point ROS conducted, relevant findings are noted in HPI. PHYSICAL EXAMINATION: VITAL SIGNS: Please see below. VITAL SIGNS: please see below General: NAD, comfortable HEENT: PERRLA, EOMI, sclerae clear Neck: supple, normal ROM, no JVD Respiratory: lungs CTAB, no wheeze, no rales, no crackles CVS: RRR, normal S1, S2, no murmurs Abdo: soft, no masses, no hepatosplenomegaly, BS+, no rebound tenderness Extremities: no edema, pulses 2+ MSK: no joint deformities, normal ROM Neuro: no focal neuro deficits, moving all 4 extremities, CN2-12 intact. Strength 5/5 in all 4 extremities. No nystagmus. Psych: calm, cooperative, AAO x 3 LABORATORY DATA: Please see below. ASSESSMENT/PLAN: Patient is a 35-year-old female, at 34W2D gestation, brought to ER by EMS for worsening hypoxia. She was diagnosed with Covid-19 on 02/09/21. Presently saturating 96% on a non-rebreather. She is alert and oriented. Denies CP, palpitations, n/v/d. Patient is unvaccinated. Low grade temp at 100F. No leukocytosis. Inflammatory markers elevated in setting of covid. Patient is being admitted to [facility] service. Hospitalist is consulted for medical recommendations for covid-19 management. #Acute hypoxic respiratory failure: 2/2 covid-19 pneumonia. Elevated inflammatory markers. LDH 282. CK 249. CRP 7.73. D-dimer 1924. 96% on NRB. S/p dexamethasone in ER. CT angio negative for PE. Given significant hypoxia, recommendation to give 4 doses dexamethasone 6 mg IV 12 hrs apart (for lung maturity), then continue with 6 mg IV daily. Start remdesivir. Trend inflammatory markers daily. #Pulmonary infiltrates: no leukocytosis. check procal. check sputum culture. legionella and strep pneumo ag. start ceftriaxone and azithromycin. #Hypokalemia: K 3.2. Replace. #Hyponatremia: Na 132. Likely 2/2 dehydration. Start NS 125 cc/hr. Check urine lytes. Serum osm. DVT ppx: primary OB service started on heparin 5000 units BID, would recommend increase to 10,000 units BID if no concerns for bleeding, imminent delivery. Thank you for involving me in the care of the patient. Hospitalist service will continue to follow. Vital Signs/I&O Vital Signs Date Time Temp Pulse Resp B/P (MAP) Pulse Ox O2 Delivery O2 Flow Rate FiO2 02/11/21 00:26 100.0 111 108/51 (70) 96 Laboratory Data Labs 24H Laboratory Tests 2 02/11/21 00:17: Immature Granulocyte % (Auto) 1.1, Neutrophils (%) (Auto) 82.0H, Lymphocytes (%) (Auto) 13.9L, Monocytes (%) (Auto) 3.0, Eosinophils (%) (Auto) 0.0, Basophils (%) (Auto) 0.0, Neutrophils # (Auto) 4.4, Lymphocytes # (Auto) 0.8L, Monocytes # (Auto) 0.2, Eosinophils # (Auto) 0.0, Basophils # (Auto) 0.0, Nucleated Red Blood Cells % (auto) 0.0, Prothrombin Time 13.2, Prothromb Time International Ratio 0.96, Activated Partial Thromboplast Time 40.4H, Fibrinogen 434, D-Dimer, Quantitative 1924.27H, Anion Gap 11, Glomerular Filtration Rate > 60.0, Lactic Acid Level 1.4, Calcium Level 9.2, Ferritin 60, Total Bilirubin 0.3, Direct Bilirubin 0.1, Aspartate Amino Transf (AST/SGOT) 43H, Alanine Aminotransferase (ALT/SGPT) 33, Alkaline Phosphatase 96, Lactate Dehydrogenase 282H, Total Cre atine Kinase 249H, Creatine Kinase MB 3.4, Creatine Kinase MB Relative Index 1.37, Troponin I < 0.02, C-Reactive Protein, Quantitative 7.73H, MC-Iuv-H-Type Natriuretic Peptide 15, Total Protein 6.3L, Albumin 2.0L, Albumin/Globulin Ratio 0.5L, Thyroid Stimulating Hormone (TSH) 1.880, Thyroxine (T4) 17.2H 02/11/21 00:22: POC pH (Misc Panel) 7.474H, POC Base Excess (Misc Panel) -4.0L, POC Saturated Percent O2 (Misc) 100H, POC pO2 (Misc Panel) 223.0H, POC pCO2 (Misc Panel) 27.3L , POC HCO3 (Misc Panel) 20.1L, POC Total CO2 (Misc Panel) 21.0L CBC/BMP Laboratory Tests 02/11/21 00:17 Microbiology Microbiology 02/11/21 Blood Culture, Received Pending 02/11/21 Blood Culture, Received Pending Allergies Coded Allergies: latex (Verified Allergy, Unknown, 02/11/21) Home Medications Scheduled Benzonatate (Tessalon Perle) 100 Mg Cap, 1 CAP PO TID for cough for 10 Days, #30 Metformin HCl (Metformin HCl) 500 Mg Tab, 1 TAB PO TID for 30 Days, #60 (Reported) Naproxen (Naprosyn) 500 Mg Tab, 500 MG PO BID, #30 take with food Prednisone (Prednisone) 20 Mg Tab, 60 MG PO DAILY, #12 Scheduled PRN Albuterol Sulfate (Proair Hfa) 108 Mcg/Act Aer, 2 PUFF INH Q4-6HP PRN for wheezing for 21 Days, #1 Codeine Phosphate/Guaifenesin (Cheratussin AC Syrup) 1 Syp Syp, 10 ML PO Q4HP PRN for cough and congestion for 4 Days, #240 QUANG HENDRICKSON MD Feb 11, 2021 04:30
[2021-02-11] MEDS ORDERED: POTASSIUM CHLORIDE 10MEQ SR TABLET PO ONE (04:35)
[2021-02-11] MEDS ORDERED: MULTTAB20 PO (04:42)
[2021-02-11] MEDS ORDERED: HOME MED LIST COMPLETE! XX SCH (04:45)
[2021-02-11 05:57] LABS: RSV AMPLIFICATION NEGATIVE (NEGATIVE)
[2021-02-11] MEDS: AZITHROMYCIN INJ 500 MG, VIAL MATE ADAPTER 1 EACH in NS 250 ML IV SCH (06:52)
[2021-02-11] MEDS: NS 1,000 ML IV SCH ×3 (06:56→20:41)
--- NOTE | 2021-02-11 07:11 | HPEPDOC ---
Obstetrical History & Physical General Date of Admission 02/11/21 History of Present Illness Patient is a 35yo at 34w2d EGA with FILEMON of 03/23/21 who tested positive for COVID 19 on Friday 02/09 and presents to the ETC with worsening shortness of breath. In the ER, patient is hypoxic, requiring nonrebreather. She denies ctx, lof, vb. Reports +FM. Chief Complaint: Other Information Provided By: Patient, Other (ER provider) Age: 35 : 5 Term: 1 Pre-term: 0 Abortions: 3 Livin Care Care: Good Care Dating Final EDC: Mar 23, 2021 EGA at Admission: 34.2 Antepartum Course Diagnos(e)s 1. COVID 19 positive: hypoxia requiring nonrebreather 2. Pregestational diabetes: not currently taking medication although metformin has been prescribed for her 3. Obesity 4. AMA 5. h/o 4th degree laceration: plan for 1LTCS at 38wks Past Medical History Past Obstetrical History : Past Obstetrical History: Multigravida Type of Delivery: Spontaneous Vaginal Del. 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 History: No pertinent history Past Medical History Medical History Pregestational diabetes Obesity Surgical History: Gallbladder, Other (knee surgery) Family History Significant Family History: No pertinent family hx Social History Marital Status: Family situation: Spouse/partner home Psychosocial History: No pertinent psych hx * Smoker: former Smoker Alcohol: Denies Drugs: denies Abuse Violence Screening Have you been hit/kicked/slapp: No Have you been sexually assault: No Allergies Coded Allergies: latex (Verified Allergy, Unknown, 02/11/21) Medications Scheduled No122/Iron/Folic Acid ( Multi Tablet) 1 Each Tablet, 1 TAB PO DAILY Physical Examination Vital Signs/I&O Vital Signs Date Time Temp Pulse Resp B/P (MAP) Pulse Ox O2 Delivery O2 Flow Rate FiO2 02/11/21 00:26 100.0 111 108/51 (70) 96 Laboratory Data 24H LABS Laboratory Tests 2 02/11/21 00:17: 02/11/21 00:22: POC pH (Misc Panel) 7.474H, POC Base Excess (Misc Panel) -4.0L, POC Saturated Percent O2 (Misc) 100H, POC pO2 (Misc Panel) 223.0H, POC pCO2 (Misc Panel) 27.3L, POC HCO3 (Misc Panel) 20.1L, POC Total CO2 (Misc Panel) 21.0L CBC/BMP Pertinent Laboratoy Data Blood Type: O+ RBC Antibody Screen: Negative Hepatitis B: Negative Hepatitis C: Negative Rapid Plasma Reagin: Nonreactive Rubella: Immune Chlamydia/Gonorrhea: Negative Group B Streptococcus: Unknown Glucose Tolerance Test: 152 Assessment/Plan Assessment 35-year-old at 34+2 weeks presents to ER with fevers and hypoxia requiring nonrebreather in the setting of COVID 19 infection Plan Admit patient for supportive care 1. Neuro - tylenol PRN - consult anesthesia to discuss intubation vs. regional anesthesia in case of emergency delivery 2. Pulm COVID 19 - continue with supportive measures at this time - maintain O2 sats > 94%, currently requiring nonrebreather - CT PE neg - CXR concerning for pneumo 3. Cardio - monitor for BP control - continuous pulse ox 4. Endo Pregestational diabetes - ISS for glucose control given steroid treatment 5. Heme - recommend VTE ppx while hospitalized - SCDs bilaterally - heparin 5000 BID 6. ID - cont dexamethasone - con't remdesivir - con't Ancef, azithromycin 7. - viable at 34w2d - benefit from maternal steroid course - continuous EFM while patient requiring non-rebreather - avoid NSAIDS Appreciate multidisciplinary coordinated care of this patient. Plan at this time is to admit patient to L&D for continuous monitoring Critical care nurse to assist on L&D to optimize maternal care Plan for delivery if emergency delivery is indicated JOHNY VALLEJO MD Feb 11, 2021 01:07
[2021-02-11] MEDS ORDERED: HumaLOG INSULIN (NovoLOG) PER UNIT SC SCH (07:30)
[2021-02-11] MEDS: BETAMETHASONE SOLUSPAN 6MG/ML 5ML VIAL (J0702 PER 3MG) IM SCH (08:50)
[2021-02-11 09:51] LABS: HEMATOCRIT 34.3 % (36.0-47.0); HEMOGLOBIN 11.2 g/dl (12.0-15.5); MEAN CORPUSCULAR HEMOGLOBIN 26.6 pg (27.0-33.0); MEAN CORPUSCULAR HGB CONC 32.7 g/dl (32.0-36.5); MEAN CORPUSCULAR VOLUME 81.5 fl (80.0-96.0); PLATELET COUNT, AUTOMATED 224 10^3/uL (150-450); RED BLOOD COUNT 4.21 10^6/uL (4.00-5.40); WHITE BLOOD COUNT 5.2 10^3/uL (4.0-10.0)
[2021-02-11] MEDS ORDERED: REMDESIVIR 200 MG in NS 250 ML IV ONE (10:00)
[2021-02-11 10:08] LABS: INR 0.97; PROTHROMBIN TIME 13.2 SECONDS (12.7-14.5)
[2021-02-11 10:09] LABS: PARTIAL THROMBOPLASTIN TIME 36.8 SECONDS (25.9-37.0)
[2021-02-11 10:11] LABS: D-DIMER QUANT 1375.36 ng/ml (<500)
[2021-02-11] MEDS: BENZONATATE 100MG CAPSULE PO SCH ×3 (10:18→20:35)
[2021-02-11 10:22] LABS: ATYPICAL LYMPH 5 % (0-5); LYMPHOCYTES 13 % (16-44); MONOCYTES 3 % (0-5); NEUTROPHILS 71 % (28-66); PLATELET ESTIMATE NORMAL (NORMAL)
[2021-02-11 10:24] LABS: ANISOCYTOSIS 1+
[2021-02-11] MEDS: HEPARIN SOD (PORCINE) 5000UNITS/ML 1ML VIAL/SYRINGE SQ SCH ×2 (10:24→20:36)
[2021-02-11 10:35] LABS: ALT/SGPT 31 U/L (12-78); BLOOD UREA NITROGEN 7 MG/DL (7-18); CALCIUM LEVEL 8.2 MG/DL (8.5-10.1); CARBON DIOXIDE LEVEL 20 MEQ/L (21-32); CHLORIDE LEVEL 104 MEQ/L (98-107); CPK CREATINE PHOSPHOKINASE 199 U/L (26-192); CREATININE FOR GFR 0.55 MG/DL (0.55-1.30); GLOMERULAR FILTRATION RATE > 60.0 (>60); GLUCOSE, FASTING 146 MG/DL (70-100); LDH LACTATE DEHYDROGENASE 260 U/L (84-246); POTASSIUM SERUM 3.7 MEQ/L (3.5-5.1); SODIUM LEVEL 135 MEQ/L (136-145)
[2021-02-11 10:36] LABS: ALBUMIN 1.8 GM/DL (3.2-5.2); BILIRUBIN,TOTAL 0.3 MG/DL (0.2-1.0); C REACTIVE PROTEIN QUANTITATIV 7.76 MG/DL (0.00-0.30); FERRITIN 62 NG/ML (8-252); MAGNESIUM LEVEL 1.7 MG/DL (1.8-2.4); TROPONIN I < 0.02 NG/ML (< 0.10)
[2021-02-11] MEDS: HumaLOG INSULIN (NovoLOG) PER UNIT SC SCH ×3 (11:53→23:51)
[2021-02-11] MEDS ORDERED: SODIUM CHLORIDE 0.9% INJ 10 ML SYR IV ONE (12:00)
[2021-02-11] MEDS: dexameTHASONE 20MG/5ML VIAL (J1100 PER 1MG) IV SCH ×2 (12:12→23:51)
[2021-02-11] MEDS: CALCIUM CARBONATE 500 MG CHEW U/D PO PRN (14:29)
--- NOTE | 2021-02-11 16:47 | REP ---
INDICATION: maternal habitus, difficult to monitor and Covid+. COMPARISON: None. TECHNIQUE: Transabdominal scanning FINDINGS: Multiple ultrasonographic images of the gravid uterus shows a single living intrauterine gestation in the cephalic presentation. Doppler interrogation of the heart shows a heart rate of 122 beats per minute. The placenta is anterior right lateral and not low-lying. The cervix measures 4.7 cm length and is closed. Doppler interrogation of the umbilical artery shows an A\B ratio of 2.69. This is within the normal range. The subjective amniotic fluid volume is within normal limits. The calculated amniotic fluid index is 17.1 within expected range of 8-24.8. biophysical profile score is 2 for breathing, 2 for movement, 2 for tone, and 2 for amniotic fluid volume giving a sum total of 8/8. Once again, a left adnexal cyst is seen measuring 5.5 x 4.4 x 5.3 cm. IMPRESSION: Limited OB ultrasound as described above. <Electronically signed by Aditya Stubbs > 02/11/21 [id number]
--- NOTE | 2021-02-11 19:54 | IPNPDOC ---
Subjective Date Seen The patient was seen on 02/11/21. Subjective Chief Complaint/HPI Patient and seen and examined at bedside this morning. She reported feeling comfortable nonrebreather, and endorse having shortness of breath only with movement. She denied chest pain, abdominal pain, nausea, vomiting, problems with urination or bowel movements. Objective Physical Examination Other physical findings General: Lying in bed, no acute distress, obese Head/Neck/Throat: Trachea midline, mucous membranes moist Eyes: Sclera anicteric, no erythema or discharge appreciated bilaterally Thorax: Was on a nonrebreather 15 L saturating at 99%, lungs clear to auscultation bilaterally, no wheezes or crackles appreciated Cardiovascular: Normal rate, regular rhythm, normal S1, S2; no S3, S4, rubs/gallops/murmurs Abdomen: Bowel sounds present, soft, nontender Genitourinary: No CVA tenderness, no Ballard in place Musculoskeletal: Moving all extremities, no edema Skin: Warm, dry Neurologic: AAOx3, speech fluent and goal-directed, no focal deficits, grossly intact Assessment /Plan Assessment #Acute respiratory failure with hypoxemia -Secondary to Covid pneumonia. Recommend continuing with 4 doses of dexamethasone 6mg q12 and then to continue with 6mg IV daily; continue with remdesivir -Continue to trend inflammatory markers to ensure they are downtrending. -She is saturating at 99% on 15L on nonrebreather; if 02 levels drop below 94- 95% present we would recommend for her to be placed on high-flow (Vapotherm) #COVID -management as above #Electrolyte abnormality -replete magnesium. -Hyponatremia, on normal saline #Superimposed pna -procal is elevated. Continue with ceftriaxone and azithromycin. -obtain resp. panel. DVT ppx -Recommend 10,000 BID if okay with obgyn. Plan/VTE VTE Prophylaxis Ordered?: Yes VS, I&O, 24H, Fishbone Vital Signs/I&O Vital Signs Date Time Temp Pulse Resp B/P (MAP) Pulse Ox O2 Delivery O2 Flow Rate FiO2 02/11/21 18:52 99 96 High Flow Cannula 02/11/21 18:47 22 02/11/21 18:44 130/72 (91) 02/11/21 16:29 97.2 10.0 Laboratory Data 24H LABS Laboratory Tests 2 02/11/21 00:17: Immature Granulocyte % (Auto) 1.1, Neutrophils (%) (Auto) 82.0H, Lymphocytes (%) (Auto) 13.9L, Monocytes (%) (Auto) 3.0, Eosinophils (%) (Auto) 0.0, Basophils (%) (Auto) 0.0, Neutrophils # (Auto) 4.4, Lymphocytes # (Auto) 0.8L, Monocytes # (Auto) 0.2, Eosinophils # (Auto) 0.0, Basophils # (Auto) 0.0, Nucleated Red Blood Cells % (auto) 0.0, Prothrombin Time 13.2, Prothromb Time International Ratio 0.96, Activated Partial Thromboplast Time 40.4H, Fibrinogen 434, D-Dimer, Quantitative 1924.27H, Anion Gap 11, Glomerular Filtration Rate > 60.0, Lactic Acid Level 1.4, Calcium Level 9.2, Ferritin 60, Total Bilirubin 0.3, Direct Bilirubin 0.1, Aspartate Amino Transf (AST/SGOT) 43H, Alanine Aminotransferase (ALT/SGPT) 33, Alkaline Phosphatase 96, Lactate Dehydrogenase 282H, Total Creatine Kinase 249H, Creatine Kinase MB 3.4, Creatine Kinase MB Relative Index 1.37, Troponin I < 0.02, C-Reactive Protein, Quantitative 7.73H, CJ-Fit-G-Type Natriuretic Peptide 15, Total Protein 6.3L, Albumin 2.0L, Albumin/Globulin Ratio 0.5L, Procalcitonin 0.07, Thyroid Stimulating Hormone (TSH) 1.880, Thyroxine (T4) 17.2H, Syphilis Serology NONREACTIVE 02/11/21 00:22: POC pH (Misc Panel) 7.474H, POC Base Excess (Misc Panel) -4.0L, POC Saturated Percent O2 (Misc) 100H, POC pO2 (Misc Panel) 223.0H, POC pCO2 (Misc Panel) 27.3L, POC HCO3 (Misc Panel) 20.1L, POC Total CO2 (Misc Panel) 21.0L 02/11/21 05:08: Coronavirus (COVID-19)(PCR) POSITIVEA, Influenza Type A (RT-PCR) NEGATIVE, Influenza Type B (RT-PCR) NEGATIVE, Respiratory Syncytial Virus (PCR) NEGATIVE 02/11/21 08:47: Bedside Glucose (Misc Panel) 159H 02/11/21 09:41: Neutrophils (%) (Auto) , Nucleated Red Blood Cells % (auto) 0.0, Neutrophils 71H, Band Neutrophils 8, Lymphocytes (Manual) 13L, Monocytes (Manual) 3, Atypical Lymphocytes 5, Anisocytosis 1+, Platelet Estimate NORMAL, Prothrombin Time 13.2, Prothromb Time International Ratio 0.97, Activated Partial Thromboplast Time 36.8, Fibrinogen 437, D-Dimer, Quantitative 1375.36H, Anion Gap 11, Glomerular Filtration Rate > 60.0, Calcium Level 8.2L, Magnesium Level 1.7L, Ferritin 62, Total Bilirubin 0.3, Aspartate Amino Transf (AST/SGOT) 40H, Alanine Aminotransferase (ALT/SGPT) 31, Alkaline Phosphatase 94, Lactate Dehydrogenase 260H, Total Creatine Kinase 199H, Troponin I < 0.02, C-Reactive Protein, Quantitative 7.76H, Total Protein 6.0L, Albumin 1.8L, Albumin/Globulin Ratio 0.4L 02/11/21 11:43: Bedside Glucose (Misc Panel) 135H 02/11/21 17:33: Bedside Glucose (Misc Panel) 199H CBC/BMP Laboratory Tests 02/11/21 00:17 02/11/21 09:41 Microbiology Microbiology 02/11/21 Blood Culture, Received Pending 02/11/21 Blood Culture, Received Pending SOO EDUARDO M.D. Feb 11, 2021 19:54
--- NOTE | 2021-02-11 19:58 | ECGEPIP ---
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
[2021-02-11] MEDS: MAG SULF 1GM/100ML (MAG RUN) 1 GM in IV 1 EA IV SCH ×2 (20:30→21:30)
[2021-02-11] MEDS ORDERED: FAMOTIDINE 20 MG TAB PO ONE (23:55)
[2021-02-12] VITALS (23 sets, daily range): BP systolic 98–147; BP diastolic 55–77
[2021-02-12] MEDS: AZITHROMYCIN INJ 500 MG, VIAL MATE ADAPTER 1 EACH in NS 250 ML IV SCH (04:50)
[2021-02-12] MEDS: NS 1,000 ML IV SCH (04:50)
[2021-02-12] MEDS: HumaLOG INSULIN (NovoLOG) PER UNIT SC SCH ×4 (08:07→21:00)
[2021-02-12] MEDS: BENZONATATE 100MG CAPSULE PO SCH ×3 (08:07→21:02)
[2021-02-12] MEDS: BETAMETHASONE SOLUSPAN 6MG/ML 5ML VIAL (J0702 PER 3MG) IM SCH (08:09)
[2021-02-12] MEDS: HEPARIN SOD (PORCINE) 5000UNITS/ML 1ML VIAL/SYRINGE SQ SCH ×2 (08:12→21:02)
[2021-02-12 08:36] LABS: INR 1.03; PROTHROMBIN TIME 13.9 SECONDS (12.7-14.5)
[2021-02-12 08:37] LABS: PARTIAL THROMBOPLASTIN TIME 35.4 SECONDS (25.9-37.0)
[2021-02-12 08:39] LABS: D-DIMER QUANT 937.41 ng/ml (<500)
[2021-02-12 08:45] LABS: ALBUMIN 1.7 GM/DL (3.2-5.2); ALT/SGPT 33 U/L (12-78); BILIRUBIN,DIRECT 0.2 MG/DL (0.0-0.2); BILIRUBIN,TOTAL 0.2 MG/DL (0.2-1.0); BLOOD UREA NITROGEN 8 MG/DL (7-18); C REACTIVE PROTEIN QUANTITATIV 2.76 MG/DL (0.00-0.30); CALCIUM LEVEL 7.5 MG/DL (8.5-10.1); CARBON DIOXIDE LEVEL 16 MEQ/L (21-32); CHLORIDE LEVEL 109 MEQ/L (98-107); CPK CREATINE PHOSPHOKINASE 124 U/L (26-192); FERRITIN 68 NG/ML (8-252); GLOMERULAR FILTRATION RATE > 60.0 (>60); GLUCOSE, FASTING 172 MG/DL (70-100); LDH LACTATE DEHYDROGENASE 299 U/L (84-246); MAGNESIUM LEVEL 1.8 MG/DL (1.8-2.4); PHOSPHORUS LEVEL 2.1 MG/DL (2.5-4.9); POTASSIUM SERUM 3.9 MEQ/L (3.5-5.1); SODIUM LEVEL 137 MEQ/L (136-145); TOTAL PROTEIN 5.7 GM/DL (6.4-8.2); TROPONIN I < 0.02 NG/ML (< 0.10)
[2021-02-12] MEDS: REMDESIVIR 100 MG in NS 250 ML IV SCH (10:08)
--- NOTE | 2021-02-12 10:51 | IPNPDOC ---
Subjective Date Seen The patient was seen on 02/12/21. Subjective Chief Complaint/HPI Patient was seen and examined at bedside this morning. She had a nasal cannula in the mouth and reported that she does better with the nonrebreather because she is a mouth breather. She reports feeling short of breath upon movement and having reproducible chest pain when she coughs. She denied nausea, vomiting, abdominal pain, problem with urination or bowel movements. Objective Physical Examination Other physical findings General: Lying in bed, no acute distress, obese Head/Neck/Throat: Trachea midline, mucous membranes moist Eyes: Sclera anicteric, no erythema or discharge appreciated bilaterally Thorax: Was on a mid flow 15 L saturating at 94%, lungs clear to auscultation bilaterally, no wheezes or crackles appreciated Cardiovascular: Normal rate, regular rhythm, normal S1, S2; no S3, S4, rubs/gallops/murmurs Abdomen: Bowel sounds present, soft, nontender Genitourinary: No CVA tenderness, no Ballard in place Musculoskeletal: Moving all extremities, no edema Skin: Warm, dry Neurologic: AAOx3, speech fluent and goal-directed, no focal deficits, grossly intact Assessment /Plan Assessment #Acute respiratory failure with hypoxemia -Secondary to Covid pneumonia. Recommend continuing with 4 doses of dexamethasone 6mg q12 and then to continue with 6mg IV daily; continue with remdesivir -Continue to trend inflammatory markers to ensure they are downtrending. -saturating at 94% on 15L nasal cannula. The nurse was told if she does better with a nonrebreather as she is a mouth breather this would be okay to utilize. We can change to 15 L nasal cannula when patient is eating and resume the nonrebreather mask afterwards. -If 02 levels drop below 94-95% present we would recommend for her to be placed on high-flow (Vapotherm) #COVID -management as above #Electrolyte abnormality -Replete magnesium. -Replete phosphorus -Hyponatremia, resolved #Superimposed pna -procal is elevated. Continue with ceftriaxone and azithromycin. -obtain resp. panel. DVT ppx -Recommend 10,000 BID if okay with obgyn. Plan/VTE VTE Prophylaxis Ordered?: Yes VS, I&O, 24H, Fishbone Vital Signs/I&O Vital Signs Date Time Temp Pulse Resp B/P (MAP) Pulse Ox O2 Delivery O2 Flow Rate FiO2 10//21 10:09 22 100 Non-Rebreather 12.0 02/12/21 10:06 88 02/12/21 09:44 119/59 (79) 02/12/21 09:14 95.5 I&O- Last 24 Hours up to 6 AM 02/12/21 06:00 Intake Total 5170 ml Output Total 1000 ml Balance 4170 ml Laboratory Data 24H LABS Laboratory Tests 2 02/11/21 11:43: Bedside Glucose (Misc Panel) 135H 02/11/21 17:33: Bedside Glucose (Misc Panel) 199H 02/11/21 23:41: Bedside Glucose (Misc Panel) 154H 02/12/21 07:54: Prothrombin Time 13.9, Prothromb Time International Ratio 1.03, Activated Partial Thromboplast Time 35.4, Fibrinogen 407, D-Dimer, Quantitative 937.41H, Anion Gap 12, Glomerular Filtration Rate > 60.0, Calcium Level 7.5L, Phosphorus Level 2.1L, Magnesium Level 1.8, Ferritin 68, Total Bilirubin 0.2, Direct Bilirubin 0.2, Aspartate Amino Transf (AST/SGOT) 36, Alanine Aminotransferase (ALT/SGPT) 33, Alkaline Phosphatase 98, Lactate Dehydrogenase 299H, Total Creatine Kinase 124, Troponin I < 0.02, C-Reactive Protein, Quantitative 2.76H, Total Protein 5.7L, Albumin 1.7L, Albumin/Globulin Ratio 0.4L 02/12/21 08:02: Bedside Glucose (Misc Panel) 171H CBC/BMP Laboratory Tests 02/12/21 07:54 Microbiology Microbiology 02/11/21 Blood Culture - Preliminary, Resulted No growth after 24 hours . All specim... 02/11/21 Blood Culture - Preliminary, Resulted No growth after 24 hours . All specim... SOO EDUARDO M.D. Feb 12, 2021 10:51
[2021-02-12] MEDS: SODIUM CHLORIDE 0.9% INJ 10 ML SYR IV SCH (11:00)
[2021-02-12] MEDS: dexameTHASONE 20MG/5ML VIAL (J1100 PER 1MG) IV SCH (11:50)
[2021-02-12] MEDS ORDERED: MAG SULF 1GM/100ML (MAG RUN) 1 GM in IV 1 EA IV ONE (12:00)
[2021-02-12] MEDS: CALCIUM CARBONATE 500 MG CHEW U/D PO PRN (13:43)
[2021-02-12] MEDS ORDERED: SODIUM PHOSPHATE INJ 20 MMOL in D5W 250 ML IV ONE (14:00)
--- NOTE | 2021-02-12 16:52 | IPNPDOC ---
Obstetrical Progress Note Date of Service Feb 12, 2021 Subjective 35 y/o female at 34 3/7 weeks gestation admitted with Covid -19 Symptoms. Hospital day number 2. At present pt is improving. She is on a non- rebreather and maintaining her O2 Sat at 96-99 %. She on anti-viral and steroids. She not Obstetric complaints. No bleeding or ctx. She is still somewhat SOB. No chest pain. Pt is being followed by Hospitalist. Cat I tracing. No ctx 12/19 BPP (done yesterday). Objective Vital Signs Date Time Temp Pulse Resp B/P (MAP) Pulse Ox O2 Delivery O2 Flow Rate FiO2 02/12/21 15:49 91 02/12/21 15:45 98/55 (69) 02/12/21 13:34 97.4 22 96 Non-Rebreather 12.0 Assessment and Plan Additional Comments A/P 1.IUP at 34 3/7 weeks- Stable . Continue current care 2. Symptomatic covid-19 infection- Improving- Continue care as per Hospitalist. 3. Diabetes- on sliding scale insulin- Continue care. Erik Rosa DO Feb 12, 2021 16:52
[2021-02-12] MEDS ORDERED: LEVALBUTEROL 1.25 MG/0.5 ML CONCENTRATE NEB INH PRN (23:20)
[2021-02-12] MEDS: COMBIVENT RESPIMAT 100-20MCG INHALER 4GM INH PRN (23:58)
[2021-02-13] VITALS (19 sets, daily range): BP systolic 122–181; BP diastolic 59–89
--- NOTE | 2021-02-13 01:02 | REPVR ---
PROCEDURE INFORMATION: Exam: XR Chest Exam date and time: 02/12/2021 11:56 PM Age: 35 years old Clinical indication: Other: Hypoxia, covid TECHNIQUE: Imaging protocol: XR of the chest. Views: 1 view. COMPARISON: CR PORTABLE CHEST X-RAY 02/11/2021 12:48 AM FINDINGS: Lungs: Degree of inflation of the lungs is normal. No evidence of pulmonary edema. Multifocal bilateral infiltrate like lung opacities, similar to the imaged yesterday, but more confluent at the right lung base today. No suspicious parenchymal lung mass. Pleural spaces: No pleural effusion or pneumothorax. Heart/Mediastinum: Heart and mediastinal contours are unremarkable. No mediastinal adenopathy or hilar mass. Bones/joints: Bony structures and extrathoracic soft tissues are unremarkable for age. IMPRESSION: Bilateral lung infiltrates suggesting multifocal pneumonia, slightly worse in the interim Electronically signed by: Layo Rehman On 02/13/2021 01:02:05 AM
[2021-02-13] MEDS ORDERED: cefTRIAXone SOD 1 GM in D5W MINI-BAG PLUS 50 ML IV SCH (02:00)
[2021-02-13] MEDS: AZITHROMYCIN INJ 500 MG, VIAL MATE ADAPTER 1 EACH in NS 250 ML IV SCH (05:24)
[2021-02-13 07:23] LABS: INR 0.92; PROTHROMBIN TIME 12.7 SECONDS (12.7-14.5)
[2021-02-13 07:26] LABS: D-DIMER QUANT 1158.76 ng/ml (<500)
[2021-02-13 07:53] LABS: ALBUMIN 1.7 GM/DL (3.2-5.2); ALT/SGPT 33 U/L (12-78); BILIRUBIN,DIRECT 0.2 MG/DL (0.0-0.2); BILIRUBIN,TOTAL 0.4 MG/DL (0.2-1.0); BLOOD UREA NITROGEN 12 MG/DL (7-18); C REACTIVE PROTEIN QUANTITATIV 1.04 MG/DL (0.00-0.30); CALCIUM LEVEL 7.7 MG/DL (8.5-10.1); CARBON DIOXIDE LEVEL 16 MEQ/L (21-32); CHLORIDE LEVEL 109 MEQ/L (98-107); CPK CREATINE PHOSPHOKINASE 73 U/L (26-192); CREATININE FOR GFR 0.48 MG/DL (0.55-1.30); FERRITIN 56 NG/ML (8-252); GLOMERULAR FILTRATION RATE > 60.0 (>60); GLUCOSE, FASTING 171 MG/DL (70-100); LDH LACTATE DEHYDROGENASE 309 U/L (84-246); MAGNESIUM LEVEL 1.9 MG/DL (1.8-2.4); PHOSPHORUS LEVEL 1.9 MG/DL (2.5-4.9); POTASSIUM SERUM 3.8 MEQ/L (3.5-5.1); SODIUM LEVEL 137 MEQ/L (136-145); TOTAL PROTEIN 5.5 GM/DL (6.4-8.2); TROPONIN I < 0.02 NG/ML (< 0.10)
[2021-02-13] MEDS: HumaLOG INSULIN (NovoLOG) PER UNIT SC SCH ×4 (08:36→21:00)
[2021-02-13] MEDS: HEPARIN SOD (PORCINE) 5000UNITS/ML 1ML VIAL/SYRINGE SQ SCH ×2 (08:36→21:00)
[2021-02-13] MEDS: BENZONATATE 100MG CAPSULE PO SCH ×3 (08:37→21:00)
[2021-02-13] MEDS ORDERED: BICITRA 30ML SOLN UDC PO ONE (08:55)
[2021-02-13] MEDS: REMDESIVIR 100 MG in NS 250 ML IV SCH (10:33)
[2021-02-13] MEDS: SODIUM CHLORIDE 0.9% INJ 10 ML SYR IV SCH (11:28)
[2021-02-13] MEDS: PRENATAL VITAMINS CHEWABLE TABLET PO SCH (12:53)
--- NOTE | 2021-02-13 14:00 | IPNPDOC ---
Subjective Date Seen The patient was seen on 02/13/21. Subjective Chief Complaint/HPI Patient was seen and examined at bedside this morning. She reports feeling tired, and short of breath whenever she gets out of bed. Overnight, she had an episode of desaturation when she got up to use the bathroom. She was instructed to use the bedpan for now and if she had to use the bathroom to ensure her nurse was present and to take it slowly making sure that the oxygen was on at all times. Otherwise, she denies chest pain, abdominal pain, nausea, vomiting, problems with urination or bowel movements. Objective Physical Examination Other physical findings General: Lying in bed, no acute distress, obese Head/Neck/Throat: Trachea midline, mucous membranes moist Eyes: Sclera anicteric, no erythema or discharge appreciated bilaterally Thorax: Was on a mid flow 15 L saturating at 98%, lungs clear to auscultation bilaterally, no wheezes or crackles appreciated Cardiovascular: Normal rate, regular rhythm, normal S1, S2; no S3, S4, rubs/gallops/murmurs Abdomen: Bowel sounds present, soft, nontender Genitourinary: No CVA tenderness, no Ballard in place Musculoskeletal: Moving all extremities, no edema Skin: Warm, dry Neurologic: AAOx3, speech fluent and goal-directed, no focal deficits, grossly intact Assessment /Plan Assessment #Acute respiratory failure with hypoxemia -Secondary to Covid pneumonia. Recommend continuing with 4 doses of dexamet hasone 6mg q12 and then to continue with 6mg IV daily; continue with remdesivir -Continue to trend inflammatory markers to ensure they are downtrending. -saturating at 98% on 15L nasal cannula. The nurse was told if she does better with a nonrebreather as she is a mouth breather this would be okay to utilize. We can change to 15 L nasal cannula when patient is eating and resume the nonrebreather mask afterwards. Also asked nurse to provide bedpan -If 02 levels drop below 94-95% present we would recommend for her to be placed on high-flow (Vapotherm) #COVID -management as above #Electrolyte abnormality -Replete phosphorus #Hyperglycemia -INCIDENT HANDLER team concerned about blood glucose levels during . Therefore Levemir 10 units at night was recommended in addition to sliding scale. -Check hemoglobin A1c for #Superimposed pna -procal is elevated. Continue with ceftriaxone and azithromycin. -obtain resp. panel. DVT ppx -Recommend 10,000 BID or 7500 Q8 if okay with obgyn. Plan/VTE VTE Prophylaxis Ordered?: Yes VS, I&O, 24H, Fishbone Vital Signs/I&O Vital Signs Date Time Temp Pulse Resp B/P (MAP) Pulse Ox O2 Delivery O2 Flow Rate FiO2 02/13/21 13:03 96.2 83 22 143/67 (92) Non-Rebreather 10.0 02/13/21 08:46 90 I&O- Last 24 Hours up to 6 AM 02/13/21 06:00 Intake Total 1665 ml Output Total 1100 ml Balance 565 ml Laboratory Data 24H LABS Laboratory Tests 2 02/12/21 17:13: Bedside Glucose (Misc Panel) 193H 02/12/21 20:58: Bedside Glucose (Misc Panel) 174H 02/13/21 06:48: Prothrombin Time 12.7, Prothromb Time International Ratio 0.92, Activated Partial Thromboplast Time 34.0, Fibrinogen 401, D-Dimer, Quantitative 1158.76H, Anion Gap 12, Glomerular Filtration Rate > 60.0, Calcium Level 7.7L, Phosphorus Level 1.9L, Magnesium Level 1.9, Ferritin 56, Total Bilirubin 0.4#, Direct Bilirubin 0.2, Aspartate Amino Transf (AST/SGOT) 33, Alanine Aminotransferase (ALT/SGPT) 33, Alkaline Phosphatase 97, Lactate Dehydrogenase 309H, Total Creatine Kinase 73, Troponin I < 0.02, C-Reactive Protein, Quantitative 1.04H, Total Protein 5.5L, Albumin 1.7L, Albumin/Globulin Ratio 0.4L 02/13/21 07:31: Bedside Glucose (Misc Panel) 177H 02/13/21 11:34: Bedside Glucose (Misc Panel) 153H CBC/BMP Laboratory Tests 02/13/21 06:48 Microbiology Microbiology 02/13/21 Respiratory Virus Panel (PCR) ([facility]) - Final, Complete SARS-CoV-2 (COVID 19) 02/11/21 Blood Culture - Preliminary, Resulted No Growth after 48 hours. All Specime... 02/11/21 Blood Culture - Preliminary, Resulted No Growth after 48 hours. All Specime... SOO EDUARDO M.D. Feb 13, 2021 14:00
[2021-02-13] MEDS ORDERED: K-PHOS ORIGINAL (POT.ACID PHOSPHATE) 500MG TAB PO ONE (15:00)
[2021-02-13] MEDS: COMBIVENT RESPIMAT 100-20MCG INHALER 4GM INH PRN ×2 (17:22→22:42)
[2021-02-13] MEDS: LEVEMIR (INSULIN DETEMIR) 1 UNITS/0.01ML SC SCH (21:00)
[2021-02-14] VITALS (15 sets, daily range): BP systolic 124–159; BP diastolic 59–78
[2021-02-14] MEDS: AZITHROMYCIN INJ 500 MG, VIAL MATE ADAPTER 1 EACH in NS 250 ML IV SCH (04:45)
[2021-02-14] MEDS ORDERED: cefTRIAXone SOD 1 GM in D5W MINI-BAG PLUS 50 ML IV SCH (06:00)
[2021-02-14 06:13] LABS: HEMATOCRIT 32.5 % (36.0-47.0); HEMOGLOBIN 10.7 g/dl (12.0-15.5); MEAN CORPUSCULAR HEMOGLOBIN 26.8 pg (27.0-33.0); MEAN CORPUSCULAR HGB CONC 32.9 g/dl (32.0-36.5); MEAN CORPUSCULAR VOLUME 81.5 fl (80.0-96.0); PLATELET COUNT, AUTOMATED 281 10^3/uL (150-450); RED BLOOD COUNT 3.99 10^6/uL (4.00-5.40); WHITE BLOOD COUNT 8.4 10^3/uL (4.0-10.0)
[2021-02-14 06:32] LABS: INR 0.96; PROTHROMBIN TIME 13.1 SECONDS (12.7-14.5)
[2021-02-14 06:33] LABS: PARTIAL THROMBOPLASTIN TIME 33.2 SECONDS (25.9-37.0)
[2021-02-14 06:50] LABS: ALBUMIN 1.7 GM/DL (3.2-5.2); ALT/SGPT 40 U/L (12-78); BILIRUBIN,DIRECT 0.2 MG/DL (0.0-0.2); BILIRUBIN,TOTAL 0.4 MG/DL (0.2-1.0); BLOOD UREA NITROGEN 10 MG/DL (7-18); C REACTIVE PROTEIN QUANTITATIV 1.62 MG/DL (0.00-0.30); CALCIUM LEVEL 7.8 MG/DL (8.5-10.1); CARBON DIOXIDE LEVEL 19 MEQ/L (21-32); CHLORIDE LEVEL 108 MEQ/L (98-107); CPK CREATINE PHOSPHOKINASE 48 U/L (26-192); CREATININE FOR GFR 0.42 MG/DL (0.55-1.30); FERRITIN 44 NG/ML (8-252); GLOMERULAR FILTRATION RATE > 60.0 (>60); GLUCOSE, FASTING 136 MG/DL (70-100); LDH LACTATE DEHYDROGENASE 308 U/L (84-246); MAGNESIUM LEVEL 1.8 MG/DL (1.8-2.4); PHOSPHORUS LEVEL 1.5 MG/DL (2.5-4.9); POTASSIUM SERUM 3.3 MEQ/L (3.5-5.1); SODIUM LEVEL 137 MEQ/L (136-145); TOTAL PROTEIN 5.3 GM/DL (6.4-8.2); TROPONIN I < 0.02 NG/ML (< 0.10)
[2021-02-14 07:01] LABS: D-DIMER QUANT 1273.37 ng/ml (<500)
--- NOTE | 2021-02-14 08:33 | IPNPDOC ---
Subjective Date Seen The patient was seen on 02/14/21. Subjective Chief Complaint/HPI Patient was seen and examined at bedside this morning. She reports feeling short of breath if she gets up to use the bathroom. She endorses having loose stools and chest pain that is present only when she coughs. She denied nausea, vomiting, diaphoresis, abdominal pain, problems with urination. Objective Physical Examination Other physical findings General: Lying in bed, no acute distress, obese Head/Neck/Throat: Trachea midline, mucous membranes moist Eyes: Sclera anicteric, no erythema or discharge appreciated bilaterally Thorax: Was on a mid flow 15 L saturating at 98%, lungs clear to auscultation bilaterally, no wheezes or crackles appreciated Cardiovascular: Normal rate, regular rhythm, normal S1, S2; no S3, S4, rubs/gallops/murmurs Abdomen: Bowel sounds present, soft, nontender Genitourinary: No CVA tenderness, no Ballard in place Musculoskeletal: Moving all extremities, no edema Skin: Warm, dry Neurologic: AAOx3, speech fluent and goal-directed, no focal deficits, grossly intact Assessment /Plan Assessment #Acute respiratory failure with hypoxemia -Secondary to Covid pneumonia. She received 4 doses of dexamethasone 6mg q12, and now will continue with 6mg IV daily. Continue with remdesivir -trend inflammatory markers -saturating at 98% on 15L nasal cannula. The nurse was told if she does better with a nonrebreather as she is a mouth breather this would be okay to utilize. We can change to 15 L nasal cannula when patient is eating and resume the nonrebreather mask afterwards. Also asked nurse to provide bedpan -If 02 levels drop below 94-95% present we would recommend for her to be placed on high-flow (Vapotherm) #COVID -management as above #Electrolyte abnormality -Replete magnesium, phosphorus, and potassium #Hyperglycemia -GAS GENERATOR OPERATOR team concerned about blood glucose levels during . Therefore Levemir 10 units at night was recommended in addition to sliding scale. -Check hemoglobin A1c for #Superimposed pna -procal is elevated. Continue with ceftriaxone and azithromycin. -obtain resp. panel. DVT ppx -Recommend 10,000 BID or 7500 Q8 if okay with obgyn. Plan/VTE VTE Prophylaxis Ordered?: Yes VS, I&O, 24H, Fishbone Vital Signs/I&O Vital Signs Date Time Temp Pulse Resp B/P (MAP) Pulse Ox O2 Delivery O2 Flow Rate FiO2 02/13/21 18:00 93 98 Non-Rebreather 10.0 02/13/21 17:51 96.5 32 143/66 (91) I&O- Last 24 Hours up to 6 AM 02/14/21 06:00 Intake Total 682 ml Output Total 1225 ml Balance -543 ml Laboratory Data 24H LABS Laboratory Tests 2 02/13/21 11:34: Bedside Glucose (Misc Panel) 153H 02/13/21 17:16: Bedside Glucose (Misc Panel) 140H 02/13/21 21:29: Bedside Glucose (Misc Panel) 114H 02/14/21 06:01: Nucleated Red Blood Cells % (auto) 0.0, Prothrombin Time 13.1, Prothromb Time International Ratio 0.96, Activated Partial Thromboplast Time 33.2, Fibrinogen 423, D-Dimer, Quantitative 1273.37H, Anion Gap 10, Glomerular Filtration Rate > 60.0, Calcium Level 7.8L, Phosphorus Level 1.5#L, Magnesium Level 1.8, Ferritin 44, Total Bilirubin 0.4, Direct Bilirubin 0.2, Aspartate Amino Transf (AST/SGOT) 43H, Alanine Aminotransferase (ALT/SGPT) 40, Alkaline Phosphatase 106, Lactate Dehydrogenase 308H, Total Creatine Kinase 48, Troponin I < 0.02, C-Reactive Protein, Quantitative 1.62H, Total Protein 5.3L, Albumin 1.7L, Albumin/Globulin Ratio 0.5L CBC/BMP Laboratory Tests 02/14/21 06:01 Microbiology Microbiology 02/13/21 Respiratory Virus Panel (PCR) ([facility]) - Final, Complete SARS-CoV-2 (COVID 19) 02/11/21 Blood Culture - Preliminary, Resulted No Growth after 72 hours. All specime... 02/11/21 Blood Culture - Preliminary, Resulted No Growth after 72 hours. All specime... SOO EDUARDO M.D. Feb 14, 2021 08:32
[2021-02-14] MEDS ORDERED: POTASSIUM CHLORIDE 10MEQ SR TABLET PO ONE ×2 (09:00→11:00)
[2021-02-14] MEDS ORDERED: MAG SULF 1GM/100ML (MAG RUN) 1 GM in IV 1 EA IV ONE ×2 (09:00→10:00)
[2021-02-14] MEDS: COMBIVENT RESPIMAT 100-20MCG INHALER 4GM INH PRN ×2 (09:09→13:06)
[2021-02-14] MEDS: PRENATAL VITAMINS CHEWABLE TABLET PO SCH (09:10)
[2021-02-14] MEDS: HumaLOG INSULIN (NovoLOG) PER UNIT SC SCH ×4 (09:11→21:00)
[2021-02-14] MEDS ORDERED: K-PHOS ORIGINAL (POT.ACID PHOSPHATE) 500MG TAB PO ONE (10:00)
[2021-02-14] MEDS: HEPARIN SOD (PORCINE) 5000UNITS/ML 1ML VIAL/SYRINGE SQ SCH ×2 (10:37→21:27)
[2021-02-14] MEDS: dexameTHASONE 20MG/5ML VIAL (J1100 PER 1MG) IV SCH (10:38)
[2021-02-14] MEDS: BENZONATATE 100MG CAPSULE PO SCH ×3 (10:38→21:26)
[2021-02-14] MEDS: REMDESIVIR 100 MG in NS 250 ML IV SCH (12:06)
[2021-02-14] MEDS: SODIUM CHLORIDE 0.9% INJ 10 ML SYR IV SCH (12:06)
[2021-02-14] MEDS: BARICITINIB 2MG TABLET (OLUMIANT) FOR EUA PO SCH (19:55)
[2021-02-14] MEDS: LEVEMIR (INSULIN DETEMIR) 1 UNITS/0.01ML SC SCH (21:00)
[2021-02-15] VITALS (12 sets, daily range): BP systolic 102–137; BP diastolic 52–70
--- NOTE | 2021-02-15 00:07 | IPNPDOC ---
Text Note Date of Service The patient was seen on 02/14/21. NOTE Subjective: Alexus is a 35-year-old female who has been admitted into to labor and delivery due to complications and symptoms from Covid 19 infection. She reports she feels better today. She is using a bedpan currently. When she does move around or talk her SpO2 hasn't decreased below 94%. She is optimistic about her recovery. Objective: labs and VS: see below. FHR: 140, moderate variability, positive accelerations, no decelerations. Arabi: no contractions noted General: Awake and alert. She appears to be doing much better than she was on Sunday. Respiratory: RR is 28-32. Auscultation of lungs noted with crackles in left lower lobe and right lower lobe is diminished. Abdomen: morbidly obese. Abdomen palpates soft without tenderness. Extremities: generalized edema in feet and ankles Assessment: IUP at 34.5 weeks gestation, Covid pneumonia, morbid obesity, pregestational diabetes Plan: Continue to collaborate care with internal medicine, respiratory, BIKE DESIGNER, and infectious disease. Consult placed for Dr. Kraus (internal medicine) to see patient. She added Olumiant 4 mg daily to her daily regiment. Medicine has been notified and will discuss with respiratory to potentially change oxygen therapy so that it can be titrated down. NST has been changed to every 4 hours as continuous monitoring is very difficult to do related to habitus. VS,Fishbone, I+O VS, Fishbone, I+O Laboratory Tests 02/14/21 06:01 Vital Signs Date Time Temp Pulse Resp B/P (MAP) Pulse Ox O2 Delivery O2 Flow Rate FiO2 02/14/21 21:37 97.4 96 32 137/74 (95) 97 02/14/21 20:04 Non-Rebreather 10.0 I&O- Last 24 Hours up to 6 AM 02/14/21 05:59 Intake Total 682 ml Output Total 1225 ml Balance -543 ml JOSÉ MANUEL WHITING CNM Feb 15, 2021 00:07
[2021-02-15] MEDS: HumaLOG INSULIN (NovoLOG) PER UNIT SC SCH ×4 (07:30→20:20)
[2021-02-15 08:42] LABS: PARTIAL THROMBOPLASTIN TIME 28.7 SECONDS (25.9-37.0); PROTHROMBIN TIME 13.6 SECONDS (12.7-14.5)
[2021-02-15 08:45] LABS: D-DIMER QUANT 1436.82 ng/ml (<500)
[2021-02-15 09:12] LABS: ALBUMIN 1.8 GM/DL (3.2-5.2); ALT/SGPT 166 U/L (12-78); BILIRUBIN,DIRECT 0.2 MG/DL (0.0-0.2); BILIRUBIN,TOTAL 0.3 MG/DL (0.2-1.0); BLOOD UREA NITROGEN 11 MG/DL (7-18); C REACTIVE PROTEIN QUANTITATIV 2.61 MG/DL (0.00-0.30); CALCIUM LEVEL 8.2 MG/DL (8.5-10.1); CARBON DIOXIDE LEVEL 20 MEQ/L (21-32); CHLORIDE LEVEL 109 MEQ/L (98-107); CPK CREATINE PHOSPHOKINASE 45 U/L (26-192); CREATININE FOR GFR 0.42 MG/DL (0.55-1.30); FERRITIN 55 NG/ML (8-252); GLOMERULAR FILTRATION RATE > 60.0 (>60); GLUCOSE, FASTING 89 MG/DL (70-100); LDH LACTATE DEHYDROGENASE 348 U/L (84-246); POTASSIUM SERUM 3.7 MEQ/L (3.5-5.1); SODIUM LEVEL 137 MEQ/L (136-145); TOTAL PROTEIN 5.7 GM/DL (6.4-8.2); TROPONIN I < 0.02 NG/ML (< 0.10)
[2021-02-15 09:13] LABS: HEMATOCRIT 33.2 % (36.0-47.0); HEMOGLOBIN 10.9 g/dl (12.0-15.5); MEAN CORPUSCULAR HEMOGLOBIN 26.3 pg (27.0-33.0); MEAN CORPUSCULAR HGB CONC 32.8 g/dl (32.0-36.5); MEAN CORPUSCULAR VOLUME 80.2 fl (80.0-96.0); PLATELET COUNT, AUTOMATED 327 10^3/uL (150-450); RED BLOOD COUNT 4.14 10^6/uL (4.00-5.40); WHITE BLOOD COUNT 6.8 10^3/uL (4.0-10.0)
--- NOTE | 2021-02-15 09:17 | CR ---
CONSULTATION DATE: 02/14/2021 REASON FOR CONSULTATION: I was asked to consult by Kenneth Rice MD, hospitalist for COVID pneumonia. HISTORY OF PRESENT ILLNESS: Mrs. Aguilar is a 35-year-old, morbidly obese female admitted with COVID pneumonia and respiratory failure. The patient was diagnosed with COVID pneumonitis on 02/09 after she went to emergent care and was tested. The patient progressively got more short of breath and therefore presented to [facility] on 02/11. She had a cough which was mostly productive of clear phlegm, denies any chest pain or palpitation. She had shortness of breath especially with exertion. She denied any nausea or vomiting. She now has some diarrhea with all the antibiotics. She had a low grade temp of 100 degrees on admission which has resolved. She is 35 weeks and was scheduled to have a at 38 weeks. She is told that by OB-ASSOCIATE PROFESSOR OF ENGINEERING. PAST MEDICAL HISTORY: Significant for gestational diabetes, morbid obesity with a BMI of 53. polycystic ovarian syndrome, hidradenitis suppurativa, unvaccinated for COVID-19. Her is no vaccinated, either. PAST SURGICAL HISTORY: Cholecystectomy and knee surgery. FAMILY HISTORY: Mother with hypertension. SOCIAL HISTORY: She is . She has a 16-year-old at home. She is a former smoker, denies alcohol or drug use. REVIEW OF SYSTEMS: She complains of cough and shortness of breath. Fever has resolved. Her symptoms started about 7 to 9 days prior to admission. Allergies NKDA MEDICATIONS: 1. Dexamethasone 6 mg IV daily. 2. Ceftriaxone 1 gm IV q.24 hours will be discontinued. 3. Levemir 10 units subcu q.h.s. 4. vitamin one tablet daily. 5. Albuterol. 6. Atrovent. 7. Combivent inhaler q.4 p.r.n. 8. Xopenex q.4 p.r.n. 9. Remdesivir 100 mg IV daily. 10. Calcium carbonate q.4 p.r.n. 11. Tessalon Perles 100 mg p.o. t.i.d. 12. Heparin 5000 units subcu b.i.d. LABORATORY DATA: White count 8.4, hemoglobin 10.7, hematocrit 32.5, platelets 281, 71% neutrophils, 8% bands, 13% leukocytes. Sodium 137, potassium 3.3, chloride 108, bicarb 19, BUN 10, creatinine 0.42, glucose 136, calcium 7.8, phosphorus 1.5, magnesium 1.8, AST 43, ALT 40, alk phos 106, LDH 308, on admission was 282, CRP 7.76 down to 1.62, albumin 1.7, procalcitonin on 02/11 0.07. Blood cultures, two sets on 02/11 were negative. On 02/13, SARS-CoV-2 was positive by PCR. IMAGING: Chest x-ray 02/12 shows bilateral lung infiltrates suggestive of multifocal pneumonia. CT angiogram done on 02/11 showed no consolidation, no masses, extensive partial bilateral air space and ground glass opacities, no embolic disease, hepatosplenomegaly and steatosis. She had an ultrasound on 02/11, showed heart rate at 122, amniotic fluid at 17.1, within normal range. PHYSICAL EXAMINATION: General: She is an obese female in no acute distress, slightly short of breath with exertion, lying on her side. Vital Signs: Temperature is 97, pulse 86, respirations 32, O2 sat 95% on 100% nonrebreather. Heart: Normal S1, S2, no murmurs, rubs or gallops. Lungs: Fine crackles at the bases. Abdomen: Morbidly obese, . Extremities: No clubbing, cyanosis or edema, no calf tenderness. Musculoskeletal: Normal. Skin: Normal exam. Neurologic: Normal. IMPRESSION: This is 35-year-old female unvaccinated admitted with COVID-19 pneumonitis diagnosed a couple of days prior to admission. The patient has received remdesivir on admission along with Decadron 6 mg IV daily. She was also started on antibiotics for community acquired pneumonia including ceftriaxone and Zithromax in spite of a normal procalcitonin of 0.07. Patient does not have superimposed bacterial pneumonia. Her inflammatory markers have decreased but her respiratory status has remained status quo. At this point, I suggest we add a EDGARDO-2 inhibitor, baricitinib. PLAN: Discontinue IV ceftriaxone and Zithromax. The patient does not have superimposed bacterial pneumonia. Repeat procalcitonin tomorrow. Add baricitinib 4 mg p.o. daily. I Discussed with pulmonary Dr Rosario her respiratory status. and asked for consult in case she decompensates and needs transfer to the ICU I suggest also increasing her dose of heparin 7500 U t.i.d. with her high risk of , obesity and being at high risk of hypercoagulable state, she may need to REMAIN ON DVT PROPHYLAXIS EVEN AT HOME AND SHORT TERM MTDD
[2021-02-15] MEDS: dexameTHASONE 20MG/5ML VIAL (J1100 PER 1MG) IV SCH (09:21)
[2021-02-15] MEDS: HEPARIN SOD (PORCINE) 5000UNITS/ML 1ML VIAL/SYRINGE SQ SCH ×2 (09:29→20:18)
[2021-02-15] MEDS: PRENATAL VITAMINS CHEWABLE TABLET PO SCH (09:33)
[2021-02-15] MEDS: BARICITINIB 2MG TABLET (OLUMIANT) FOR EUA PO SCH (09:33)
[2021-02-15] MEDS: BENZONATATE 100MG CAPSULE PO SCH ×3 (09:33→20:19)
[2021-02-15] MEDS: POTASSIUM CHLORIDE 10MEQ SR TABLET PO SCH ×2 (10:05→20:20)
[2021-02-15] MEDS: REMDESIVIR 100 MG in NS 250 ML IV SCH (10:27)
[2021-02-15] MEDS: SODIUM CHLORIDE 0.9% INJ 10 ML SYR IV SCH (12:17)
--- NOTE | 2021-02-15 12:58 | CR.PDOC ---
General Date of Consultation: Feb 15, 2021 Consultation REASON FOR PULMONOLOGY CONSULTATION/CHIEF COMPLAINT: Respiratory failure HISTORY OF PRESENT ILLNESS: 35-year-old female, 34 weeks , presents to the hospital with progressively worsening shortness of breath and dry cough. She was diagnosed with Covid approximately 1 week ago. She had subjective fevers and chills at that time. She has been having progressively worsening shortness of breath particularly on exertion and she also had pleuritic chest pain. Denies any night sweats, weight loss, headaches, vision changes, lower extremity swelling, GI or symptoms. She was admitted to the labor and delivery unit for monitoring. She is currently still complaining of shortness of breath when she walks around and dry cough. Overnight she was on 100% nonrebreather and she has now been titrated down to 40% Venturi mask. ALLERGIES: Please see below. HOME MEDICATIONS: Please see below. PAST MEDICAL HISTORY: Gestational diabetes, morbid obesity, polycystic ovarian syndrome, here adenitis suppurativa, CHILO noncompliant with Pap therapy PAST SURGICAL HISTORY: Cholecystectomy and knee surgery FAMILY HISTORY: Mother has COPD, father siblings another child are in normal health SOCIAL HISTORY: Former smoker quit about 9 months ago, smoked half pack per day x10 years. No alcohol use no illicit drug use. 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 REVIEW OF SYSTEMS: CONSTITUTIONAL: Subjective fevers EYES: No blurring of vision or redness. ENT: No sore throat. No epistaxis. No tinnitus. CARDIOVASCULAR: Pleuritic chest. No palpitations. RESPIRATORY: See HPI GASTROINTESTINAL: No nausea, vomiting, or diarrhea. GENITOURINARY: No frequency, urgency, nocturia. No hematuria or dysuria. MUSCULOSKELETAL: No arthralgias or myalgias. INTEGUMENTARY: No rash or swelling NEUROLOGIC: No headache. No numbness or tingling of the extremities. No weakness. PSYCHIATRIC: No confusion or mood changes. ENDOCRINE: No fatigue, no goiter. HEMATOLOGICAL: No bleeding. No petechiae. No bruising. PHYSICAL EXAMINATION: VITAL SIGNS: Please see below. GENERAL APPEARANCE: Morbidly obese, alert and awake. Not in distress on Venturi mask 40% FiO2 pulse ox 95%. HEENT: no thyromegaly, trachea midline, PERRLA. normal mucous membranes . RESPIRATORY: CTA B/L on anterior auscultation, good air entry. CARDIOVASCULAR: +s1 s2, no murmurs. ABDOMEN: nontender, not distended, +BS EXTREMITIES: no edema or erythema. palpable distal pulses SKIN: no rash, no purpura NEUROLOGICAL: no sensory or motor deficits, orientedx3. LABORATORY DATA: Please see below. Labs and Imaging personally reviewed by me. LABS/IMAGING: Procalcitonin less than 0.05 BNP 15 Ferritin 55 LDH 348 Dimer 1436 Fibrinogen 533 Blood cultures x2 are negative Sputum Gram stain and culture from 02/[address] chest 02/11/2021 extensive patchy bilateral airspace and groundglass opacities, no acute PE, hepatosplenomegaly and steatosis. Chest x-ray 02/12/2021 bilateral lung infiltrates suggesting multifocal pneumonia, slightly worse in the interim. ASSESSMENT: 1. Acute hypoxic respiratory failure secondary to COVID-19 pneumoniacurrently on 40% Venturi mask, less oxygen requirements compared to yesterday. No evidence of bacterial coinfection. 2. Morbid obesity 3. CHILO noncompliant with PAP therapy 4. 34 weeks PLAN: * Continue oxygen therapy to maintain pulse ox more than or equal to 95%. Titrate down oxygen therapy as tolerated. Continue Venturi mask for now. Suspect she will have worsening desaturation during sleep in part due to her CHILO. She is refusing treatment with nocturnal CPAP at this time. May use high flow nasal cannula if need to maintain goal saturation. If there is any increased work of breathing or respiratory distress would recommend to start BiPAP 02/15 and transfer to the ICU at that time. If there is any sudden wo rsening in respiratory status repeat chest x-ray stat to rule out pneumothorax. * Strict I&O, try to keep I</=O * Agree with baricitinib and remdesivir * C/w Decadron 6 mg IV daily for total of 10 days or until discharge, which ever is shorter. * Check LE duplex to assess for DVT * Heparin 10,000 units SQ twice daily for DVT prophylaxis Vital Signs/I&O Vital Signs Date Time Temp Pulse Resp B/P (MAP) Pulse Ox O2 Delivery O2 Flow Rate FiO2 02/15/21 08:28 80 98 Venturi Mask 10.0 50 02/15/21 07:25 97.8 20 102/55 (71) I&O- Last 24 Hours up to 6 AM 02/15/21 06:00 Intake Total 1537 ml Output Total 2100 ml Balance -563 ml Laboratory Data Labs 24H Laboratory Tests 2 02/14/21 17:06: Bedside Glucose (Misc Panel) 126H 02/14/21 21:26: Bedside Glucose (Misc Panel) 105 02/15/21 07:32: Bedside Glucose (Misc Panel) 81 02/15/21 07:55: Nucleated Red Blood Cells % (auto) 0.0 02/15/21 08:01: Prothrombin Time 13.6, Prothromb Time International Ratio 1.00, Activated Partial Thromboplast Time 28.7, Fibrinogen 533H, D-Dimer, Quantitative 1436.82H, Anion Gap 8, Glomerular Filtration Rate > 60.0, Calcium Level 8.2L, Phosphorus Level 2.0#L, Magnesium Level 2.0, Ferritin 55, Total Bilirubin 0.3, Direct Bilirubin 0.2, Aspartate Amino Transf (AST/SGOT) 155H, Alanine Aminotransferase (ALT/SGPT) 166H, Alkaline Phosphatase 116, Lactate Dehydrogenase 348H, Total Creatine Kinase 45, Troponin I < 0.02, C-Reactive Protein, Quantitative 2.61H, Total Protein 5.7L, Albumin 1.8L, Albumin/Globulin Ratio 0.5L, Procalcitonin <0.05 02/15/21 12:06: Bedside Glucose (Misc Panel) 112H CBC/BMP Laboratory Tests 02/15/21 07:55 02/15/21 08:01 Microbiology Microbiology 02/14/21 Gram Stain, Received Pending 02/14/21 Sputum Culture, Received Pending 02/13/21 Respiratory Virus Panel (PCR) ([facility]) - Final, Complete SARS-CoV-2 (COVID 19) 02/11/21 Blood Culture - Preliminary, Resulted No Growth after 72 hours. All specime... 02/11/21 Blood Culture - Preliminary, Resulted No Growth after 72 hours. All specime... Allergies Coded Allergies: latex (Verified Allergy, Unknown, 02/11/21) Home Medications Scheduled No122/Iron/Folic Acid ( Multi Tablet) 1 Each Tablet, 1 TAB PO DAILY, (Reported) JAVI PIERRE MD Feb 15, 2021 12:58
[2021-02-15] MEDS: COMBIVENT RESPIMAT 100-20MCG INHALER 4GM INH PRN (14:33)
--- NOTE | 2021-02-15 15:34 | IPNPDOC ---
Date Seen The patient was seen on 02/15/21. Progress Note SUBJECTIVE: Remains SOB with activity at times, chest pain with deep breathing. Adjusted heparin dosing. She reports feeling short of breath if she gets up to use the bathroom. She endorses having loose stools and chest pain that is present only when she coughs. She denied nausea, vomiting, diaphoresis, abdominal pain, problems with urination. OBJECTIVE: VS: please see below General: Lying in bed, NAD, resting Head/Neck/Throat: Trachea midline, mucous membranes moist Eyes: Sclera anicteric, no erythema or discharge appreciated bilaterally Thorax: Decreased breath sounds lower lungs, no wheezing, rhonchi Cardiovascular: Normal rate, regular rhythm, normal S1, S2; no S3, S4, rubs/g allops/murmurs Abdomen: Bowel sounds present, soft, nontender, distended abd Genitourinary: No CVA tenderness, no Ballard in place Musculoskeletal: Moving all extremities, b/l lower ext edema Skin: Warm, dry Neurologic: AAOx3, speech wnl LABS: SEe below MICRO: Sputum GS, cx pending: MODERATE WBCS FEW EPITHELIAL CELLS FEW GRAM POSITIVE COCCI IN CLUSTERS AND CHAINS MODERATE GRAM POSITIVE RODS FEW GRAM NEGATIVE RODS MODERATE YEAST LIKE ORGANISM BCx neg ASSESSMENT: 35-year-old female 34 weeks gestation admitted for acute respiratory failure with hypoxemia secondary to Covid, pneumonitis. PLAN: #Acute respiratory failure with hypoxemia 2/2 to COVID, pneumonitis -venturi mask, 96% O2 with Fio2 40% -IS added, Strict I&O -trend inflammatory markers, labs with some increasing today -Dexamethasone, remdesivir, baricitinib, supplemental O2 -Pulmonary consulted and discussed case with Dr. Rosario -ID consulted and not suspecting superimposed PNA, abx stopped #COVID -Management as above #Hypophosphatemia, hypokalemia -Started KCl BID, replaced phos -Supplement phosphorus, potassium PRN #Hyperglycemia/pregestational diabetes -BS stable -Levemir 10 units at night, ISS -FS AC/HS #CHILO -Suggests CPAP nightly -Patient was refusing to use per pulmonary #Transaminitis likely 2/2 to medications -On remdesivir, baricitinib which can cause acute increase -Will discuss with Dr. Kraus as to when/if to stop meds -CMP daily #B/l lower ext edema -Ordered Doppler b/l to r/o DVT -Incr DVT px #DVT ppx -heparin 10,000 BID DISPOSITION: Currently inpatient status. OB, pulmonary and ID consulted and following. Transferring to [facility] floor today VS, I&O, 24H, Fishbone Vital Signs/I&O Vital Signs Date Time Temp Pulse Resp B/P (MAP) Pulse Ox O2 Delivery O2 Flow Rate FiO2 02/15/21 13:23 85 20 96 Venturi Mask 40 02/15/21 13:10 96.3 02/15/21 12:47 137/70 (92) 02/15/21 08:28 10.0 I&O- Last 24 Hours up to 6 AM 02/15/21 06:00 Intake Total 1537 ml Output Total 2100 ml Balance -563 ml Laboratory Data 24H LABS Laboratory Tests 2 02/14/21 17:06: Bedside Glucose (Misc Panel) 126H 02/14/21 21:26: Bedside Glucose (Misc Panel) 105 02/15/21 07:32: Bedside Glucose (Misc Panel) 81 02/15/21 07:55: Nucleated Red Blood Cells % (auto) 0.0 02/15/21 08:01: Prothrombin Time 13.6, Prothromb Time International Ratio 1.00, Activated Partial Thromboplast Time 28.7, Fibrinogen 533H, D-Dimer, Quantitative 1436.82H, Anion Gap 8, Glomerular Filtration Rate > 60.0, Calcium Level 8.2L, Phosphorus Level 2.0#L, Magnesium Level 2.0, Ferritin 55, Total Bilirubin 0.3, Direct Bilirubin 0.2, Aspartate Amino Transf (AST/SGOT) 155H, Alanine Aminotransferase (ALT/SGPT) 166H, Alkaline Phosphatase 116, Lactate Dehydrogenase 348H, Total Creatine Kinase 45, Troponin I < 0.02, C-Reactive Protein, Quantitative 2.61H, Total Protein 5.7L, Albumin 1.8L, Albumin/Globulin Ratio 0.5L, Procalcitonin <0.05 02/15/21 12:06: Bedside Glucose (Misc Panel) 112H CBC/BMP Laboratory Tests 02/15/21 07:55 02/15/21 08:01 Microbiology Microbiology 02/14/21 Gram Stain - Final, Resulted 02/14/21 Sputum Culture, Resulted Pending 02/13/21 Respiratory Virus Panel (PCR) (LESLEE) - Final, Complete SARS-CoV-2 (COVID 19) 02/11/21 Blood Culture - Preliminary, Resulted No Growth after 72 hours. All specime... 02/11/21 Blood Culture - Preliminary, Resulted No Growth after 72 hours. All specime... Current Medications Current Medications Medications (Trade) Dose Ordered Sig/Geronimo Route PRN Reason Start Time Stop Time Status Last Admin Dose Admin Albuterol/ Ipratropium (Combivent Respimat 100-20mcg) 1 puff Q4HP PRN INH SHORTNESS OF BREATH 02/12/21 23:20 02/15/21 14:33 Azithromycin 500 mg/IV Miscellaneous Supplies 1 each/ Sodium Chloride 255 ml @ 255 mls/hr Q24H IV 02/11/21 05:00 02/14/21 14:43 DC 02/14/21 04:45 Baricitinib (Olumiant) 4 mg DAILY PO 02/14/21 09:00 02/15/21 09:33 Benzonatate (Tessalon Perles) 100 mg TID PO 02/11/21 09:00 02/15/21 09:33 Betamethasone Acet/Betameth SodPhos (Celestone-Soluspan) 12 mg Q24H IM 02/11/21 09:00 02/12/21 09:01 DC 02/12/21 08:09 Calcium Carbonate (Tums) 1,000 mg Q4HP PRN PO HEARTBURN 02/11/21 14:25 02/12/21 13:43 Ceftriaxone Sodium 1 gm/ Dextrose 50 ml @ 100 mls/hr Q24H IV 02/13/21 02:00 02/13/21 08:21 DC 02/13/21 06:57 Ceftriaxone Sodium 1 gm/ Dextrose 50 ml @ 100 mls/hr Q24H IV 02/14/21 06:00 02/14/21 18:32 DC 02/14/21 06:36 Dexamethasone (Decadron) 6 mg DAILY IV 02/14/21 10:00 02/15/21 09:21 Dexamethasone (Decadron) 6 mg Q12H IV 02/11/21 12:00 02/12/21 12:01 DC 02/12/21 11:50 Dextrose (Dextrose 50%) 25 ml ASDIRECTED PRN IV SEE LABEL COMMENTS 02/11/21 03:55 Glucagon (Glucagon) 1 mg ASDIRECTED PRN SC SEE LABEL COMMENTS 02/11/21 03:55 Glucose (Glucose) 16 GM ASDIRECTED PRN PO SEE LABEL COMMENTS 02/11/21 03:55 Heparin Sodium (Porcine) (Heparin) 5,000 units BID SQ 02/11/21 09:00 02/15/21 15:23 DC 02/15/21 09:29 Heparin Sodium (Porcine) (Heparin) 10,000 units BID SQ 02/15/21 21:00 Home Med (Home Med List Complete!) ASDIRECTED XX 02/11/21 04:45 02/11/21 05:00 DC Insulin Detemir (Levemir Insulin) 10 units QHS SC 02/13/21 21:00 02/13/21 21:00 Insulin Human Lispro (HumaLOG INSULIN) SEE PROTOCOL TABLE AC OK 02/11/21 07:30 Cancel Insulin Human Lispro (HumaLOG INSULIN) SEE PROTOCOL TABLE AC OK 02/12/21 07:30 02/15/21 12:16 Insulin Human Lispro (HumaLOG INSULIN) SEE PROTOCOL TABLE Q6H OK 02/11/21 12:00 02/12/21 05:56 DC 02/11/21 23:51 Insulin Human Lispro (HumaLOG INSULIN) SEE PROTOCOL TABLE QHS OK 02/12/21 21:00 Levalbuterol HCl (Xopenex Neb) 0.63 mg Q4HP PRN INH SOB/WHEEZING 02/12/21 23:20 Magnesium Sulfate/ Dextrose 1 gm/IV Miscellaneous Supplies 100 ml @ 100 mls/hr Q1H IV 02/11/21 21:00 02/11/21 22:59 DC 02/11/21 21:30 Pantoprazole Sodium (Protonix) 40 mg Q24H IV 02/15/21 18:00 Potassium Chloride (Micro-K Extencaps) 20 meq BID PO 02/15/21 09:00 02/15/21 10:05 Prenat Multivit/ Steele/Iron/Folic Ac ( Vitamins) 1 tab DAILY PO 02/13/21 09:00 02/15/21 09:33 Remdesivir 100 mg/ Sodium Chloride 270 ml @ 270 mls/hr Q24H IV 02/12/21 10:00 02/16/21 09:59 02/15/21 10:27 Sodium Chloride 1,000 ml @ 125 mls/hr Q8H IV 02/11/21 04:45 02/12/21 10:53 DC 02/12/21 04:50 Sodium Chloride (Saline Lock Flush) 30 ml Q24H IV 02/12/21 11:00 02/16/21 10:59 02/15/21 12:17 Allergies Coded Allergies: latex (Verified Allergy, Unknown, 02/11/21) Magnolia Carney MD Feb 15, 2021 15:34
--- NOTE | 2021-02-15 16:32 | REP ---
INDICATION: r/o dvt with stat reading COMPARISON: None. TECHNIQUE: Chen scale and color Doppler evaluation using linear high frequency transducer. FINDINGS: Ultrasound examination of the right and left lower extremity deep venous structures from the common femoral vein through the popliteal veins demonstrates normal compressibility flow and wave patterns in response to respiration and augmentation. There is no evidence for deep venous thrombosis. Limited evaluation of the calf veins due to edema and body habitus without obvious thrombus. IMPRESSION: No evidence for deep venous thrombosis. <Electronically signed by Omar Santamaria > 02/15/21 2150
[2021-02-15] MEDS: PANTOPRAZOLE 40MG VIAL (C9113 PER 1) IV SCH (17:11)
[2021-02-15] MEDS ORDERED: POTASSIUM PHOSPHATE INJ 15 MMOL in D5W 250 ML IV ONE (18:00)
--- NOTE | 2021-02-15 20:12 | IPNPDOC ---
Text Note Date of Service The patient was seen on 02/15/21. NOTE OB Note: S: Patient improving. Still reports chest pain and SOB with exertion. Deneis vaginal bleeding, LOF or reg ctx. O: vss, AF Cat I tracing Gen: Well appearing, NAD abd: gravid, nttp A: 35-year-old female 34 weeks gestation admitted for acute respiratory failure with hypoxemia secondary to Covid, pneumonitis. P: #Acute respiratory failure with hypoxemia 2/2 to COVID, pneumonitis -Dexamethasone, remdesivir, baricitinib, supplemental O2 -Heparin 10,000 units BID -ID consulted and not suspecting superimposed PNA, abx stopped -Transfer to Covid unit when possible VS,Fishbone, I+O VS, Fishbone, I+O Laboratory Tests 02/15/21 07:55 02/15/21 08:01 Vital Signs Date Time Temp Pulse Resp B/P (MAP) Pulse Ox O2 Delivery O2 Flow Rate FiO2 02/15/21 19:22 96.9 84 28 110/53 (72) 95 Venturi Mask 35 02/15/21 08:28 I&O- Last 24 Hours up to 6 AM 02/15/21 06:00 Intake Total 1537 ml Output Total 2100 ml Balance -563 ml MULUGETA DAVIDSON MD. Feb 15, 2021 20:12
[2021-02-15] MEDS: LEVEMIR (INSULIN DETEMIR) 1 UNITS/0.01ML SC SCH (20:21)
[2021-02-16] VITALS (12 sets, daily range): BP systolic 102–206; BP diastolic 51–87
[2021-02-16] MEDS: HumaLOG INSULIN (NovoLOG) PER UNIT SC SCH ×4 (08:18→21:00)
[2021-02-16] MEDS: HEPARIN SOD (PORCINE) 5000UNITS/ML 1ML VIAL/SYRINGE SQ SCH ×2 (08:22→20:27)
[2021-02-16] MEDS: BARICITINIB 2MG TABLET (OLUMIANT) FOR EUA PO SCH (08:31)
[2021-02-16] MEDS: BENZONATATE 100MG CAPSULE PO SCH ×3 (08:32→20:26)
[2021-02-16] MEDS: PRENATAL VITAMINS CHEWABLE TABLET PO SCH (08:32)
[2021-02-16] MEDS: dexameTHASONE 20MG/5ML VIAL (J1100 PER 1MG) IV SCH (08:56)
[2021-02-16] MEDS: LEVEMIR (INSULIN DETEMIR) 1 UNITS/0.01ML SC SCH (09:00)
[2021-02-16 09:15] LABS: HEMATOCRIT 34.8 % (36.0-47.0); HEMOGLOBIN 11.4 g/dl (12.0-15.5); MEAN CORPUSCULAR HEMOGLOBIN 26.6 pg (27.0-33.0); MEAN CORPUSCULAR HGB CONC 32.8 g/dl (32.0-36.5); MEAN CORPUSCULAR VOLUME 81.1 fl (80.0-96.0); PLATELET COUNT, AUTOMATED 325 10^3/uL (150-450); RED BLOOD COUNT 4.29 10^6/uL (4.00-5.40); WHITE BLOOD COUNT 7.3 10^3/uL (4.0-10.0)
[2021-02-16 09:31] LABS: INR 0.99; PROTHROMBIN TIME 13.5 SECONDS (12.7-14.5)
[2021-02-16 09:32] LABS: PARTIAL THROMBOPLASTIN TIME 26.5 SECONDS (25.9-37.0)
[2021-02-16 09:35] LABS: D-DIMER QUANT 1385.11 ng/ml (<500)
[2021-02-16 09:52] LABS: ALBUMIN 1.8 GM/DL (3.2-5.2); ALT/SGPT 410 U/L (12-78); BILIRUBIN,DIRECT 0.1 MG/DL (0.0-0.2); BILIRUBIN,TOTAL 0.3 MG/DL (0.2-1.0); BLOOD UREA NITROGEN 14 MG/DL (7-18); C REACTIVE PROTEIN QUANTITATIV 0.58 MG/DL (0.00-0.30); CALCIUM LEVEL 8.5 MG/DL (8.5-10.1); CARBON DIOXIDE LEVEL 21 MEQ/L (21-32); CHLORIDE LEVEL 108 MEQ/L (98-107); CPK CREATINE PHOSPHOKINASE 39 U/L (26-192); CREATININE FOR GFR 0.51 MG/DL (0.55-1.30); FERRITIN 60 NG/ML (8-252); GLOMERULAR FILTRATION RATE > 60.0 (>60); GLUCOSE, FASTING 104 MG/DL (70-100); LDH LACTATE DEHYDROGENASE 335 U/L (84-246); MAGNESIUM LEVEL 1.9 MG/DL (1.8-2.4); PHOSPHORUS LEVEL 2.6 MG/DL (2.5-4.9); POTASSIUM SERUM 4.1 MEQ/L (3.5-5.1); SODIUM LEVEL 136 MEQ/L (136-145); TOTAL PROTEIN 5.9 GM/DL (6.4-8.2); TROPONIN I < 0.02 NG/ML (< 0.10)
[2021-02-16] MEDS: POTASSIUM CHLORIDE 10MEQ SR TABLET PO SCH ×2 (10:15→20:27)
--- NOTE | 2021-02-16 10:21 | IPN ---
PROGRESS NOTE DATE: 02/15/2021 Alexus seems to be doing better today. She states her shortness of breath has improved. She has a mild dry cough. She denies any nausea, vomiting, or diarrhea. She was having lower extremity ultrasound to rule out deep venous thrombosis (DVT), which was negative. PHYSICAL EXAMINATION: HEART: Normal S1, S2. No murmurs. LUNGS: Clear to auscultation anteriorly. ABDOMEN: Obese, soft, nontender, . EXTREMITIES: No clubbing, cyanosis, or edema. NEUROLOGIC: Normal. Patient alert and oriented times three. LABORATORY DATA: White count 6.8, hemoglobin 10.9, hematocrit 33.2, platelets 327. Sodium 137, potassium 3.7, chloride 109, bicarbonate 20, BUN 11, creatinine 0.42, glucose 89, calcium 8.2, phosphorus 2. Ferritin 55. Bilirubin 0.3, AST 155, ALT 166, alkaline phosphatase 116. Total CPK 45. LDH 348. CRP 2.61. Procalcitonin less than 0.05. MEDICATIONS: - dexamethasone 6 mg intravenous (IV) daily - baricitinib, day #2, 4 mg by mouth daily - remdesivir, day #4 Vascular ultrasound: No evidence of deep venous thrombosis (DVT) bilaterally. IMPRESSION: 1. COVID pneumonia with respiratory failure, improving since yesterday. FiO2 has decreased from 100% to 40% Ventimask this afternoon. Procalcitonin is normal, and therefore no evidence of superimposed bacterial pneumonia. IV antibiotics were discontinued yesterday, including Zithromax and ceftriaxone. 2. Morbid obesity and obstructive sleep apnea. 3. Thirty-five weeks , at high risk of deep venous thrombosis (DVT). PLAN: Case reviewed from Dr. Anne pulmonary consultation, and increased dose of heparin agreed with to 10,000 units twice daily for DVT prophylaxis. Continue baricitinib, IV dexamethasone, and remdesivir. I would suggest also patient continues with DVT prophylaxis upon discharge, as she is high risk for DVT with COVID-19, , and morbid obesity. [facility]
--- NOTE | 2021-02-16 10:47 | IPNPDOC ---
Text Note Date of Service The patient was seen on 02/16/21. SUBJECTIVE: Patient seen and examined at bedside. There were no overnight events aside from requiring nonrebreather oxygen for approximately 1 hour while she was ambulating. This morning she feels much better she is up in bed eating. She was on a Venturi mask 50% and in no distress. While I was present the nurse place her on 7 L nasal cannula and her pulse ox was 97%. She still complains of cough but denies fever, chills, diarrhea, leg pain. All other ROS are negative except as mentioned above PHYSICAL EXAMINATION: VITAL SIGNS: Please see below. GENERAL APPEARANCE: Morbidly obese. Alert and awake. HEENT: no thyromegaly, trachea midline, PERRLA. normal mucous membranes RESPIRATORY: Crackles at the bases bilaterally , good air entry. CARDIOVASCULAR: +s1 s2, no murmurs. ABDOMEN: nontender, not distended, +BS EXTREMITIES: no edema or erythema. palpable distal pulses SKIN: no rash, no purpura NEUROLOGICAL: no sensory or motor deficits, orientedx3. PERTINENT LABS/IMAGING: AST 304, ALT 410 these are up from yesterday. LDH 335 Procalcitonin less than 0.05 Dimer 1385 Sputum culture yeastlike organism. Blood cultures negative x2 Venous ultrasound of the lower extremities negative for DVT ASSESSMENT: 1. Acute hypoxic respiratory failure secondary to COVID-19 pneumonia, imp roving. Tolerating nasal cannula. No evidence of bacterial coinfection. 2. Morbid obesity 3. CHILO noncompliant with PAP therapy 4. 34 weeks 5. Transaminitis hepatocellular pattern PLAN: * Continue oxygen therapy to maintain pulse ox more than or equal to 95%. Titrate down oxygen therapy as tolerated. If there is any increased work of breathing or respiratory distress would recommend to start BiPAP 02/15 and transfer to the ICU at that time. If there is any sudden worsening in re spiratory status repeat chest x-ray stat to rule out pneumothorax. * Strict I&O, try to keep I=O * Agree with baricitinib and remdesivir. Monitor off antibiotics. * Monitor LFTs daily. Suspect the elevated AST/ALT is due to baricitinib. I do believe her respiratory failure has improved since she was started on baricitinib thus I would continue as the benefit of baricitinib outweighs the harm of mildly elevated liver function test. * C/w Decadron 6 mg IV daily for total of 10 days or until discharge, which ever is shorter. * Heparin 10,000 units SQ twice daily for DVT prophylaxis VS,Fishbone, I+O VS, Fishbone, I+O Laboratory Tests 02/16/21 09:04 Vital Signs Date Time Temp Pulse Resp B/P (MAP) Pulse Ox O2 Delivery O2 Flow Rate FiO2 02/16/21 10:00 85 94 Nasal Cannula 5.0 02/16/21 09:14 50 02/16/21 09:08 96.7 28 112/68 (83) I&O- Last 24 Hours up to 6 AM 02/16/21 06:00 Intake Total 1405 ml Output Total 3025 ml Balance -1620 ml JAVI PIERRE MD Feb 16, 2021 10:47
[2021-02-16] MEDS ORDERED: SLF 3 ML SYR IV PRN (13:55)
[2021-02-16] MEDS: SLF 3 ML SYR IV SCH ×2 (14:00→22:00)
--- NOTE | 2021-02-16 16:11 | IPNPDOC ---
Date Seen The patient was seen on 02/16/21. Progress Note SUBJECTIVE: Improving shortness of breath and was transitioned to nasal cannula later in the afternoon. AST and ALTs increased; however, discussed with pulmonary and infectious disease and decision was made to continue baricitinib, monitor LFTs daily. She denies chest pain, nausea, vomiting, fevers or chills. OBJECTIVE: VS: please see below General: Lying in bed, NAD, resting, comfortable Head/Neck/Throat: Trachea midline, mucous membranes moist Eyes: Sclera anicteric, no erythema or discharge appreciated bilaterally Thorax: Decreased breath sounds lower lungs, no wheezing, rhonchi Cardiovascular: Normal rate, regular rhythm, normal S1, S2; no S3, S4, rubs/gallops/murmurs Abdomen: Bowel sounds present, soft, nontender, distended abd Genitourinary: No CVA tenderness, no Ballard in place Musculoskeletal: Moving all extremities, b/l lower ext edema Skin: Warm, dry Neurologic: AAOx3, speech wnl LABS: See below MICRO: Sputum GS, cx pending: MODERATE WBCS FEW EPITHELIAL CELLS FEW GRAM POSITIVE COCCI IN CLUSTERS AND CHAINS MODERATE GRAM POSITIVE RODS FEW GRAM NEGATIVE RODS MODERATE YEAST LIKE ORGANISM BCx neg ASSESSMENT: 35-year-old female 34 weeks gestation admitted for acute respiratory failure with hypoxemia secondary to Covid, pneumonitis. PLAN: #Acute respiratory failure with hypoxemia 2/2 to COVID, pneumonitis -Currently on 95% on 4 L of oxygen and appears more comfortable today. -Dexamethasone, remdesivir, baricitinib, supplemental O2 -C/w IS, Strict I&O, trend inflammatory markers,daily labs -Pulmonary and ID following closely. -ID not suspecting superimposed PNA, abx stopped this hospital stay. GS above with culture pending- not restarting abx at this time #COVID -Management as above #Transaminitis likely 2/2 to medications -Remdesivir completed, but baricitinib can also cause acute increase -Also previously on rocephin -Benefit outweighs risk after discussion with care team so will continue current tx -CMP daily #Hypophosphatemia, hypokalemia-resolved -Supplement phosphorus, potassium PRN #Hyperglycemia/pregestational diabetes -BS elevated and can be >200 at times mostly mid-day, later day -Switching levemir 10 units to AM instead of HS , ISS -FS AC/HS, hypoglycemic protocol -F/u HbA1c #CHILO -Suggests CPAP nightly -Patient was refusing to use per pulmonary #B/l lower ext edema -Doppler b/l neg #DVT ppx -heparin 10,000 BID DISPOSITION: PT ordered today. Currently inpatient status. OB, pulmonary and ID following. VS, I&O, 24H, Fishbone Vital Signs/I&O Vital Signs Date Time Temp Pulse Resp B/P (MAP) Pulse Ox O2 Delivery O2 Flow Rate FiO2 02/16/21 15:46 87 95 Nasal Cannula 4.0 02/16/21 15:00 96.5 24 108/59 (75) 02/16/21 09:14 50 I&O- Last 24 Hours up to 6 AM 02/16/21 06:00 Intake Total 1405 ml Output Total 3025 ml Balance -1620 ml Laboratory Data 24H LABS Laboratory Tests 2 02/15/21 17:18: Bedside Glucose (Misc Panel) 152H 02/15/21 20:16: Bedside Glucose (Misc Panel) 130H 02/16/21 07:36: Bedside Glucose (Misc Panel) 105 02/16/21 09:04: Nucleated Red Blood Cells % (auto) 0.0, Prothrombin Time 13.5, Prothromb Time International Ratio 0.99, Activated Partial Thromboplast Time 26.5, Fibrinogen 507H, D-Dimer, Quantitative 1385.11H, Anion Gap 7L, Glomerular Filtration Rate > 60.0, Calcium Level 8.5, Phosphorus Level 2.6#, Magnesium Level 1.9, Ferritin 60, Total Bilirubin 0.3, Direct Bilirubin 0.1, Aspartate Amino Transf (AST/SGOT) 304H, Alanine Aminotransferase (ALT/SGPT) 410H, Alkaline Phosphatase 120H, Lactate Dehydrogenase 335H, Total Creatine Kinase 39, Troponin I < 0.02, C- Reactive Protein, Quantitative 0.58H, Total Protein 5.9L, Albumin 1.8L, Albumin/Globulin Ratio 0.4L 02/16/21 12:02: Bedside Glucose (Misc Panel) 254H 02/16/21 12:08: Bedside Glucose (Misc Panel) 269H CBC/BMP Laboratory Tests 02/16/21 09:04 Microbiology Microbiology 02/14/21 Gram Stain - Final, Complete 02/14/21 Sputum Culture - Final, Complete Yeast Like Organism 02/13/21 Respiratory Virus Panel (PCR) (LESLEE) - Final, Complete SARS-CoV-2 (COVID 19) 02/11/21 Blood Culture - Final, Complete NO GROWTH AFTER 5 DAYS 02/11/21 Blood Culture - Final, Complete NO GROWTH AFTER 5 DAYS Magnolia Carney MD Feb 16, 2021 16:11
[2021-02-16] MEDS: PANTOPRAZOLE 40MG VIAL (C9113 PER 1) IV SCH (18:02)
[2021-02-16] MEDS: COMBIVENT RESPIMAT 100-20MCG INHALER 4GM INH PRN ×2 (18:40→22:29)
[2021-02-16 19:27] LABS: HEMOGLOBIN A1c 6.6 %
[2021-02-17] MEDS: SLF 3 ML SYR IV SCH ×3 (07:41→22:00)
[2021-02-17] MEDS: HumaLOG INSULIN (NovoLOG) PER UNIT SC SCH ×4 (07:45→21:00)
[2021-02-17 07:56] LABS: HEMATOCRIT 33.7 % (36.0-47.0); HEMOGLOBIN 11.3 g/dl (12.0-15.5); MEAN CORPUSCULAR HEMOGLOBIN 26.7 pg (27.0-33.0); MEAN CORPUSCULAR HGB CONC 33.5 g/dl (32.0-36.5); MEAN CORPUSCULAR VOLUME 79.7 fl (80.0-96.0); PLATELET COUNT, AUTOMATED 271 10^3/uL (150-450); RED BLOOD COUNT 4.23 10^6/uL (4.00-5.40); WHITE BLOOD COUNT 7.2 10^3/uL (4.0-10.0)
[2021-02-17 08:44] LABS: ALBUMIN 1.8 GM/DL (3.2-5.2); ALT/SGPT 471 U/L (12-78); BILIRUBIN,TOTAL 0.2 MG/DL (0.2-1.0); BLOOD UREA NITROGEN 17 MG/DL (7-18); CALCIUM LEVEL 9.2 MG/DL (8.5-10.1); CARBON DIOXIDE LEVEL 21 MEQ/L (21-32); CHLORIDE LEVEL 110 MEQ/L (98-107); CREATININE FOR GFR 0.56 MG/DL (0.55-1.30); GLOMERULAR FILTRATION RATE > 60.0 (>60); GLUCOSE, FASTING 136 MG/DL (70-100); MAGNESIUM LEVEL 1.7 MG/DL (1.8-2.4); PHOSPHORUS LEVEL 3.4 MG/DL (2.5-4.9); POTASSIUM SERUM 3.8 MEQ/L (3.5-5.1); SODIUM LEVEL 138 MEQ/L (136-145); TOTAL PROTEIN 6.3 GM/DL (6.4-8.2)
[2021-02-17 09:16] VITALS: BP 114/55
[2021-02-17] MEDS: PRENATAL VITAMINS CHEWABLE TABLET PO SCH (09:22)
[2021-02-17] MEDS: POTASSIUM CHLORIDE 10MEQ SR TABLET PO SCH ×2 (09:22→20:54)
[2021-02-17] MEDS: BARICITINIB 2MG TABLET (OLUMIANT) FOR EUA PO SCH (09:22)
[2021-02-17] MEDS: BENZONATATE 100MG CAPSULE PO SCH (09:23)
[2021-02-17] MEDS: LEVEMIR (INSULIN DETEMIR) 1 UNITS/0.01ML SC SCH (09:24)
[2021-02-17] MEDS: dexameTHASONE 20MG/5ML VIAL (J1100 PER 1MG) IV SCH (09:25)
[2021-02-17] MEDS: HEPARIN SOD (PORCINE) 5000UNITS/ML 1ML VIAL/SYRINGE SQ SCH ×2 (09:25→20:54)
--- NOTE | 2021-02-17 11:54 | IPNPDOC ---
Text Note Date of Service The patient was seen on 02/17/21. SUBJECTIVE: Patient seen and examined at bedside. There were no overnight events. Patient did not need Venturi mask or nonrebreather overnight. Patient is on 4 L nasal cannula and saturating 97%. Patient feels much improved she was ambulating earlier this morning to the bathroom and she had a shower. She still has a nonproductive cough and mild dyspnea on exertion. All other ROS are negative except as mentioned above PHYSICAL EXAMINATION: VITAL SIGNS: Please see below. GENERAL APPEARANCE: Alert and awake. HEENT: no thyromegaly, trachea midline, PERRLA. normal mucous membranes RESPIRATORY: Bibasilar crackles. good air entry. CARDIOVASCULAR: +s1 s2, no murmurs. ABDOMEN: Gravid abdomen. Nontender, not distended, +BS EXTREMITIES: no edema or erythema. palpable distal pulses SKIN: no rash, no purpura NEUROLOGICAL: no sensory or motor deficits, orientedx3. PERTINENT LABS/IMAGING: Labs and imaging reviewed see below. ASSESSMENT: 1. Acute hypoxic respiratory failure secondary to COVID-19 pneumonia, improving. Tolerating nasal cannula. No evidence of bacterial coinfection. 2. Morbid obesity 3. CHILO noncompliant with PAP therapy 4. 34 weeks 5. Transaminitis hepatocellular pattern PLAN: * Continue oxygen therapy to maintain pulse ox more than or equal to 95%. Titrate down oxygen therapy as tolerated. * Strict I&O, try to keep I=O, avoid volume overload * C/w baricitinib 4mg daily x 14 days or until hospital discharge, whichever comes first. * C/w Decadron 6 mg IV daily for total of 10 days or until discharge, which ever is shorter. * Monitor LFTs daily. Suspect the elevated AST/ALT is due to baricitinib. I do believe her respiratory failure has improved since she was started on baricitinib thus I would continue as the benefit of baricitinib outweighs the harm of mildly elevated liver function test. * Heparin 10,000 units SQ twice daily for DVT prophylaxis. Although she is considered high risk for VTE given her obesity, covid infection and , there is insufficient data to support outpatient pharmacologic thromboprophylaxis in women, and in particular patients that have no prior hx of VTE or inherited thrombophilias. The benefits of VTE prevention must be weighed against the risks of bleeding and complications, thus will defer to OBGYN decision for outpatient VTE ppx during the antepartum period. * Pulmonary will sign off please recall as needed. VS,Fishbone, I+O VS, Fishbone, I+O Laboratory Tests 02/17/21 07:39 Vital Signs Date Time Temp Pulse Resp B/P (MAP) Pulse Ox O2 Delivery O2 Flow Rate FiO2 02/17/21 09:16 97.0 83 114/55 (74) 97 Nasal Cannula 4.0 02/16/21 18:36 24 02/16/21 09:14 50 I&O- Last 24 Hours up to 6 AM 02/17/21 06:00 Intake Total 840 ml Output Total 650 ml Balance 190 ml JAVI PIERRE MD Feb 17, 2021 11:54
[2021-02-17] MEDS: COMBIVENT RESPIMAT 100-20MCG INHALER 4GM INH PRN (12:47)
[2021-02-17 14:39] VITALS: BP 110/55
[2021-02-17 15:08] LABS: HEPATITIS B SURFACE ANTIGEN NEGATIVE (NEGATIVE)
[2021-02-17 15:35] LABS: HEPATITIS C VIRUS ABY INDEX 0.1 INDEX (<0.8)
[2021-02-17 15:36] LABS: HEPATITIS B CORE ANTIBODY IGM NEGATIVE (NEGATIVE)
[2021-02-17 15:38] LABS: HEPATITIS A ANTIBODY IGM NEGATIVE (NEGATIVE)
[2021-02-17 17:30] VITALS: BP 105/58
--- NOTE | 2021-02-17 17:54 | IPNPDOC ---
Date Seen The patient was seen on 02/17/21. Progress Note SUBJECTIVE: Patient continues to improve with breathing, activity without having increasing SOB. Decreased O2 demand. She denies chest pain, nausea, vomiting, fevers or chills. OBJECTIVE: PHYSICAL EXAM: VS: please see below General: Sitting up in bed, NAD, resting, comfortable Head/Neck/Throat: Trachea midline, mucous membranes moist, NC in place Eyes: Sclera anicteric, no erythema or discharge appreciated bilaterally Thorax: Decreased breath sounds lower lungs, no wheezing, rhonchi Cardiovascular: Normal rate, regular rhythm, normal S1, S2; no S3, S4, rubs/gallops/murmurs Abdomen: Bowel sounds present, soft, nontender, distended abd Genitourinary: No CVA tenderness, no Ballard in place Musculoskeletal: Moving all extremities, b/l lower ext edema Skin: Warm, dry Neurologic: AAOx3, speech wnl LABS: See below MICRO: Sputum GS: MODERATE WBCS FEW EPITHELIAL CELLS FEW GRAM POSITIVE COCCI IN CLUSTERS AND CHAINS MODERATE GRAM POSITIVE RODS FEW GRAM NEGATIVE RODS MODERATE YEAST LIKE ORGANISM Sputum Cx: yeast like organism BCx neg ASSESSMENT: 35-year-old female 34 weeks gestation admitted for acute respiratory failure with hypoxemia secondary to Covid, pneumonitis. PLAN: #Acute respiratory failure with hypoxemia 2/2 to COVID, pneumonitis -Decreased O2 further to 3 L, saturating well. -Dexamethasone(6 mg daily x 10 days or until hospital d/c), baricitinib (4mg daily x 14 days or until hospital discharge, whichever comes first), suppleme ntal O2. Completed treatment with remdesivir. -C/w IS, Strict I&O, trend inflammatory markers,daily labs -Pulmonary and ID following #COVID -Management as above #Transaminitis likely 2/2 to medications -Remdesivir completed, but baricitinib can also cause acute increase -Also previously on rocephin -LFTs slightly increased -CMP daily #Hyperglycemia/pregestational diabetes -BS elevated and can be >200 at times mostly mid-day, later day -Switching levemir 14 units AM , ISS -FS AC/HS, hypoglycemic protocol -HbA1c 6.6 #CHILO -Suggests CPAP nightly -Patient was refusing to use per pulmonary #B/l lower ext edema -Doppler b/l neg #DVT ppx -heparin 10,000 BID DISPOSITION: PT. Currently inpatient status. OB, pulmonary and ID following. VS, I&O, 24H, Fishbone Vital Signs/I&O Vital Signs Date Time Temp Pulse Resp B/P (MAP) Pulse Ox O2 Delivery O2 Flow Rate FiO2 02/17/21 14:39 96.5 83 20 110/55 (73) 98 Nasal Cannula 3.0 02/16/21 09:14 50 I&O- Last 24 Hours up to 6 AM 02/17/21 06:00 Intake Total 840 ml Output Total 650 ml Balance 190 ml Laboratory Data 24H LABS Laboratory Tests 2 02/16/21 21:36: Bedside Glucose (Misc Panel) 183H 02/16/21 23:12: Serology Scanned Report Hepatitis B Testing 02/17/21 07:34: Bedside Glucose (Misc Panel) 137H 02/17/21 07:39: Nucleated Red Blood Cells % (auto) 0.0, Anion Gap 7L, Glomerular Filtration Rate > 60.0, Calcium Level 9.2, Phosphorus Level 3.4#, Magnesium Level 1.7L, Total Bilirubin 0.2, Aspartate Amino Transf (AST/SGOT) 218H, Alanine Aminotransferase (ALT/SGPT) 471H, Alkaline Phosphatase 120H, Total Protein 6.3L, Albumin 1.8L, Albumin/Globulin Ratio 0.4L, Hepatitis A IgM Antibody NEGATIVE, Hepatitis B Biswas rface Antigen NEGATIVE, Hepatitis B Core IgM Antibody NEGATIVE, Hepatitis C Antibody Index 0.1 02/17/21 12:13: Bedside Glucose (Misc Panel) 183H CBC/BMP Laboratory Tests 02/17/21 07:39 Microbiology Microbiology 02/14/21 Gram Stain - Final, Complete 02/14/21 Sputum Culture - Final, Complete Yeast Like Organism 02/13/21 Respiratory Virus Panel (PCR) (LESLEE) - Final, Complete SARS-CoV-2 (COVID 19) 02/11/21 Blood Culture - Final, Complete NO GROWTH AFTER 5 DAYS 02/11/21 Blood Culture - Final, Complete NO GROWTH AFTER 5 DAYS Magnolia Carney MD Feb 17, 2021 17:54
[2021-02-17] MEDS: PANTOPRAZOLE 40MG VIAL (C9113 PER 1) IV SCH (18:00)
[2021-02-17] MEDS ORDERED: MAGNESIUM OXIDE 400MG TAB (MAG-OX) PO ONE (19:00)
--- NOTE | 2021-02-17 21:43 | IPNPDOC ---
Text Note Date of Service The patient was seen on 02/17/21. NOTE Progress note S: Breathing better. good movement O: AVSS NAD Lungs: decreased breath sounds CVS: RRR Abd: NT, gravid FHT: category one toco: rare A/P 35 yo at 35 1/7 weeks with respiratory failure due to COVID-19, HD#7 Continue to monitor status on LDR Oxygen and steroids as per Medicine Pt appears to be slowly improving VS,Fishbone, I+O VS, Fishbone, I+O Laboratory Tests 02/17/21 07:39 Vital Signs Date Time Temp Pulse Resp B/P (MAP) Pulse Ox O2 Delivery O2 Flow Rate FiO2 02/17/21 17:30 97.0 70 22 105/58 (74) 97 Nasal Cannula 3.0 02/16/21 09:14 50 I&O- Last 24 Hours up to 6 AM 02/17/21 06:00 Intake Total 840 ml Output Total 650 ml Balance 190 ml OSIRIS COUCH MD Feb 17, 2021 21:43
[2021-02-18 07:28] VITALS: BP 127/56
[2021-02-18] MEDS: HumaLOG INSULIN (NovoLOG) PER UNIT SC SCH ×2 (07:35→11:57)
[2021-02-18] MEDS ORDERED: LEVEMIR (INSULIN DETEMIR) 1 UNITS/0.01ML SC SCH (09:00)
[2021-02-18] MEDS: POTASSIUM CHLORIDE 10MEQ SR TABLET PO SCH (09:05)
[2021-02-18] MEDS: PRENATAL VITAMINS CHEWABLE TABLET PO SCH (09:05)
[2021-02-18] MEDS: dexameTHASONE 20MG/5ML VIAL (J1100 PER 1MG) IV SCH (09:06)
[2021-02-18] MEDS: BARICITINIB 2MG TABLET (OLUMIANT) FOR EUA PO SCH (09:30)
[2021-02-18] MEDS: HEPARIN SOD (PORCINE) 5000UNITS/ML 1ML VIAL/SYRINGE SQ SCH (09:30)
[2021-02-18 09:53] LABS: ALT/SGPT 470 U/L (12-78); BILIRUBIN,TOTAL 0.2 MG/DL (0.2-1.0); BLOOD UREA NITROGEN 12 MG/DL (7-18); CALCIUM LEVEL 8.9 MG/DL (8.5-10.1); CARBON DIOXIDE LEVEL 22 MEQ/L (21-32); CHLORIDE LEVEL 107 MEQ/L (98-107); CREATININE FOR GFR 0.64 MG/DL (0.55-1.30); GLOMERULAR FILTRATION RATE > 60.0 (>60); GLUCOSE, FASTING 151 MG/DL (70-100); POTASSIUM SERUM 3.8 MEQ/L (3.5-5.1); SODIUM LEVEL 137 MEQ/L (136-145); TOTAL PROTEIN 6.1 GM/DL (6.4-8.2)
[2021-02-18] MEDS ORDERED: HEPA500023 SQ (15:01)
[2021-02-18 15:59] VITALS: BP 120/56
--- NOTE | 2021-02-18 16:20 | IPNPDOC ---
Date Seen The patient was seen on 02/18/21. Progress Note SUBJECTIVE: Doing well on RA, decreased SOB with activity. Eating and drinking well. She denies chest pain, nausea, vomiting, fevers or chills. OBJECTIVE: PHYSICAL EXAM: VS: please see below General: Sitting up in bed, NAD, resting, comfortable Head/Neck/Throat: Trachea midline, mucous membranes moist Eyes: Sclera anicteric, no erythema or discharge appreciated bilaterally Thorax: Improved breath sounds bilaterally , no wheezing, rhonchi Cardiovascular: Normal rate, regular rhythm, normal S1, S2; no S3, S4, rubs/gallops/murmurs Abdomen: Bowel sounds present, soft, nontender, distended abd Genitourinary: No CVA tenderness, no Ballard in place Musculoskeletal: Moving all extremities Skin: Warm, dry Neurologic: AAOx3, speech wnl LABS: See below MICRO: Sputum GS: MODERATE WBCS FEW EPITHELIAL CELLS FEW GRAM POSITIVE COCCI IN CLUSTERS AND CHAINS MODERATE GRAM POSITIVE RODS FEW GRAM NEGATIVE RODS MODERATE YEAST LIKE ORGANISM Sputum Cx: yeast like organism BCx neg ASSESSMENT: 35-year-old female 34 weeks gestation admitted for acute respiratory failure with hypoxemia secondary to Covid, pneumonitis. PLAN: #Acute respiratory failure with hypoxemia 2/2 to COVID, pneumonitis-improved -Saturating well on room air, decreased shortness of breath activity as improved -Status post Dexamethasone, baricitinib, completed treatment with remdesivir. -LFTs still elevated but not markedly worsened. -Agree with discharge with heparin for DVT prophylaxis due to patient being high risk -Advised that if she should have any increase shortness of breath or chest pain and to return to the ER for evaluation. #COVID 19 -Management as above #Transaminitis likely 2/2 to medications -Remdesivir completed, but baricitinib can also cause acute increase -Also previously on rocephin -LFTs remain slightly increased. -Recommend close follow-up as outpatient with OB to ensure these levels do not rise, repeat LFTs after the weekend. #Hyperglycemia/pregestational diabetes -HbA1c 6.6 -Monitor outpatient #CHILO -Recommend CPAP nightly #B/l lower ext edema -Doppler b/l neg, likely related #DVT ppx -heparin 10,000 BID VS, I&O, 24H, Fishbone Vital Signs/I&O Vital Signs Date Time Temp Pulse Resp B/P (MAP) Pulse Ox O2 Delivery O2 Flow Rate FiO2 02/18/21 15:59 97.6 76 20 120/56 (77) Room Air 02/18/21 07:28 97 02/17/21 17:30 3.0 02/16/21 09:14 50 I&O- Last 24 Hours up to 6 AM 02/18/21 06:00 Intake Total 1535.5 ml Output Total 1575 ml Balance -39.5 ml Laboratory Data 24H LABS Laboratory Tests 2 02/17/21 17:32: Bedside Glucose (Misc Panel) 211H 02/17/21 21:01: Bedside Glucose (Misc Panel) 222H 02/18/21 07:24: Bedside Glucose (Misc Panel) 155H 02/18/21 09:08: Anion Gap 8, Glomerular Filtration Rate > 60.0, Calcium Level 8.9, Total Bilirubin 0.2, Aspartate Amino Transf (AST/SGOT) 149H, Alanine Aminotransferase (ALT/SGPT) 470H, Alkaline Phosphatase 126H, Total Protein 6.1L, Albumin 2.0L, Albumin/Globulin Ratio 0.5L 02/18/21 11:56: Bedside Glucose (Misc Panel) 199H CBC/BMP Laboratory Tests 02/18/21 09:08 Microbiology Microbiology 02/14/21 Gram Stain - Final, Complete 02/14/21 Sputum Culture - Final, Complete Yeast Like Organism 02/13/21 Respiratory Virus Panel (PCR) ([facility]LEE) - Final, Complete SARS-CoV-2 (COVID 19) 02/11/21 Blood Culture - Final, Complete NO GROWTH AFTER 5 DAYS 02/11/21 Blood Culture - Final, Complete NO GROWTH AFTER 5 DAYS Magnolia Carney MD Feb 18, 2021 16:20
--- NOTE | 2021-02-18 18:10 | DS.PDOC ---
Discharge Summary General Date of Admission Feb 11, 2021 at 03:53 Date of Discharge Feb 18, 2021 Discharge Summary PROCEDURES PERFORMED DURING STAY: None ADMITTING DIAGNOSES: 1. Covid 19, probable pneumonia, hypoxia and febrile 2. IUP @ 34w2d 3. Pregestational diabetes DISCHARGE DIAGNOSES: 1. Covid 19, symptoms resolving 2. IUP @ 35w2d COMPLICATIONS/CHIEF COMPLAINT: Covid-19/ Third Timester. HISTORY OF PRESENT ILLNESS: 35yo ED 03/23/2021 diagnosed with Covid19 02/09. Presented to ED via EMS 02/11. Admitted to [facility] service with consultation of medicine and infectious disease. HOSPITAL COURSE: Ms Aguilar has been comanaged with medicine during her hospitalization. She has had a category 1 tracing throughout her stay. She initially required O2 supplementation via NRB to maintain adequate oxygen saturation, receiving steroids; insulin via sliding scale; antivirals; antibiotics and anticoagulants. Today she is afebrile, ambulating in the room and maintaining O2 saturation on room air. She has been cleared for discharge by Dr Kraus. DISCHARGE MEDICATIONS: Please see below. ALLERGIES: Please see below. PHYSICAL EXAMINATION ON DISCHARGE: VITAL SIGNS: Please see below. GENERAL: No distress HEENT: WNL CARDIOVASCULAR EXAMINATION: HRR, normotensive RESPIRATORY EXAMINATION: Clear and unlabored at rest ABDOMINAL EXAMINATION: Gravid, appropriate for gestation. Cat I tracing EXTREMITIES: Equal strength and motion SKIN: Intact NEUROLOGICAL EXAMINATION: Grossly intact PSYCHIATRIC EXAMINATION: Appropriate LABORATORY DATA: Please see below. PROGNOSIS: Good ACTIVITY: As tolerated DIET: As tolerated DISCHARGE PLAN: Home today DISPOSITION: . DISCHARGE INSTRUCTIONS: 1. Continue heparin 10,000units SC BID. She was instructed to stop heparin dosing evening prior to her section in 2 wks. Resume home medications. 2. Daily FKC, signs of labor, worsening symptoms reviewed 3. Office visit next week DISCHARGE CONDITION: Stable TIME SPENT ON DISCHARGE: 10 minutes. Vital Signs/I&Os Vital Signs Date Time Temp Pulse Resp B/P (MAP) Pulse Ox O2 Delivery O2 Flow Rate FiO2 02/18/21 15:59 97.6 76 20 120/56 (77) Room Air 02/18/21 07:28 97 02/17/21 17:30 3.0 02/16/21 09:14 50 I&O- Last 24 Hours up to 6 AM 02/18/21 06:00 Intake Total 1535.5 ml Output Total 1575 ml Balance -39.5 ml Laboratory Data Labs 24H Laboratory Tests 2 02/17/21 17:32: Bedside Glucose (Misc Panel) 211H 02/17/21 21:01: Bedside Glucose (Misc Panel) 222H 02/18/21 07:24: Bedside Glucose (Misc Panel) 155H 02/18/21 09:08: Anion Gap 8, Glomerular Filtration Rate > 60.0, Calcium Level 8.9, Total Bilirubin 0.2, Aspartate Amino Transf (AST/SGOT) 149H, Alanine Aminotransferase (ALT/SGPT) 470H, Alkaline Phosphatase 126H, Total Protein 6.1L, Albumin 2.0L, Albumin/Globulin Ratio 0.5L 02/18/21 11:56: Bedside Glucose (Misc Panel) 199H CBC/BMP Laboratory Tests 02/18/21 09:08 FSBS Laboratory Tests Test 02/17/21 17:32 02/17/21 21:01 02/18/21 07:24 02/18/21 11:56 Range/Units Bedside Glucose (Misc Panel) 211 222 155 199 70-105 MG/DL Microbiology Microbiology 02/14/21 Gram Stain - Final, Complete 02/14/21 Sputum Culture - Final, Complete Yeast Like Organism 02/13/21 Respiratory Virus Panel (PCR) (LESLEE) - Final, Complete SARS-CoV-2 (COVID 19) 02/11/21 Blood Culture - Final, Complete NO GROWTH AFTER 5 DAYS 02/11/21 Blood Culture - Final, Complete NO GROWTH AFTER 5 DAYS Discharge Medications Scheduled No122/Iron/Folic Acid ( Multi Tablet) 1 Each Tablet, 1 TAB PO DAILY, (Reported) Allergies Coded Allergies: latex (Verified Allergy, Unknown, 02/11/21) Aparna Blum CNM Feb 18, 2021 16:41
--- NOTE | 2021-02-19 12:57 | IPN ---
PROGRESS NOTE DATE: 02/18/2021 SUBJECTIVE: Alexus is doing very well. She is anxious to go home. She has not used her oxygen all day today. She stated that at midnight she was 97% and on ambulation around her room she is at 94%. MEDICATIONS: 1. Baricitinib 4 mg PO daily for day #5. 2. Remdesivir (cut out) discontinued after five days. 3. Decadron 6 mg IV daily. LABS: White count 7.2, hemoglobin .3, hematocrit 33.7, platelets 271. Sodium 137, potassium 3.8, chloride 107, bicarb 22, BUN 12, creatinine ____(cut out), glucose , calcium 8.9, bilirubin 0.2, AST 149 down from 304, ALT 470 from baseline of 33, alk phos 123, CRP 0.58. Sputum culture had no microorganism. PHYSICAL EXAMINATION: VITAL SIGNS: Temperature 97.4, pulse 80, respirations 20, blood pressure 127/50, O2 sat 97% on room air. HEART: Normal S1, S2. No murmurs, rubs or gallops. LUNGS: Clear, no wheezes, rhonchi or rales.. ABDOMEN: Obese, soft, nontender. EXTREMITIES: No clubbing, cyanosis, edema or calf tenderness. IMPRESSION: 1. COVID-19 pneumonia with respiratory failure, status post five days of Remdesivir and Baricitinib as well as IV Decadron. The patient is doing much better, no longer hypoxic. O2 sat on room air is 97% and with exertion it is 94%. 2. Thirty-five weeks with high risk of hypercoagulability especially with COVID-19, morbid obesity and diabetes. I would suggest the patient get discharged home on Heparin subcu 10,000 units twice daily until delivery. This has been discussed with Veronica, asphalt tar and gravel roofer, and Hospitalist Service. 3. Abnormal liver function tests with negative hepatitis A, B and C serology. This happened after receiving Baricitinib and therefore that will be discontinued. PLAN: The patient could be discharged home. She has twins at home that are 22 months and they are both COVID-19 positive. Her two other children and step-children 16 and 19-year-old were negative but they are back to school. She is day 10 of her illness so she is also in isolation. Her remains on quarantine because of the fact that he took care of the twins that were positive ten days ago.
== END 2021-02-18 16:47 | disposition home or self-care (01) | DRG 566 ==
LOC: M ED 00:11 → M ED INP 03:53 → M LDI 07:45
PROVIDERS: ADMIT Obstetrics & Gynecology; ATTEND Advanced Practice Midwife
DX: O98.513 Other viral diseases complicating pregnancy, third trimester (principal); Z3A.34 34 weeks gestation of pregnancy; U07.1 COVID-19; O09.523 Supervision of elderly multigravida, third trimester; Z91.040 Latex allergy status; E66.9 Obesity, unspecified; O99.213 Obesity complicating pregnancy, third trimester; O24.415 Gestational diabetes mellitus in pregnancy, controlled by oral hypoglycemic drugs; Z91.14 Patient's other noncompliance with medication regimen; Z68.43 Body mass index [BMI] 50.0-59.9, adult; Z87.891 Personal history of nicotine dependence; E28.2 Polycystic ovarian syndrome; O99.283 Endocrine, nutritional and metabolic diseases complicating pregnancy, third trimester; J96.01 Acute respiratory failure with hypoxia; O99.513 Diseases of the respiratory system complicating pregnancy, third trimester; E87.1 Hypo-osmolality and hyponatremia; E87.6 Hypokalemia; E83.42 Hypomagnesemia; E83.39 Other disorders of phosphorus metabolism; J12.82 Pneumonia due to coronavirus disease 2019; G47.33 Obstructive sleep apnea (adult) (pediatric); O99.353 Diseases of the nervous system complicating pregnancy, third trimester; Z91.19 Patient's noncompliance with other medical treatment and regimen

== ENCOUNTER 2021-02-25 11:51 | Inpatient (IN) | payer OTHER ==
[~2021-02-25] VITALS: Ht 160 cm; Wt 129.8 kg
[2021-02-25] VITALS (10 sets, daily range): BP systolic 83–122; BP diastolic 44–58
[~2021-02-25 11:51] MED LIST changes: -OXYC1TAB23 PO; -TUMS750C22 PO
[2021-02-25] MEDS ORDERED: TUMS750C22 PO (12:15)
[2021-02-25] MEDS ORDERED: LACTATED RINGER'S 1000 ML IV STA (12:34)
[2021-02-25] MEDS ORDERED: BICITRA 30ML SOLN UDC PO ONE (12:35)
[2021-02-25] MEDS ORDERED: ceFAZolin SOD 3 GM IV Place Holder IV ONE (12:35)
[2021-02-25] MEDS ORDERED: LR 1,000 ML IV SCH ×2 (12:35→21:45)
[2021-02-25] MEDS ORDERED: OXYTOCIN DRIP 30 UNITS in IV 1 EA IV PRN (12:35)
[2021-02-25] MEDS ORDERED: AZITHROMYCIN INJ 500 MG, VIAL MATE ADAPTER 1 EACH in NS 250 ML IV ONE (12:35)
[2021-02-25] MEDS ORDERED: ceFAZolin SOD 2 GM in IV 1 EA IV ONE (12:55)
[2021-02-25] MEDS ORDERED: ceFAZolin SOD 1 GM in D5W MINI-BAG PLUS 50 ML IV ONE (12:55)
[2021-02-25] MEDS ORDERED: HOME MED LIST COMPLETE! XX SCH (13:00)
--- OUTSIDE RECORDS SUMMARY | 2021-02-25 13:01 | CCD ---
Author Author [facility] em[facility] Organization [facility] ems Address Unknown Phone Unavailable Care Team Providers Care Intermediate Card Tender Name Role Phone Zack Levy Unavailable PROBLEMS Type Condition ICD9-CM Code [id number] Code Onset Dates Condition S tatus W/U Status Risk SNOMED Code Notes Problem Pre-existing diabetes mellit us affecting in first trimester, antepartum O24.311 Active confirmed 871736604 Problem Obesity complicating , first trimester O9 9.211 Active confirmed 670804519640 Problem Pre-existing diabetes mellit us affecting in second trimester, antepartum O24.312 Active confirmed 461350099 Problem Obesity complicating in first trimester O99.211 Active confirmed Problem Pre-existing diabetes mellit us affecting in third trimester, antepartum O24.313 Active confirmed 100538640 Problem Pregestational diabetes mellitus, modified White class B O24.319 Active confirmed 94456450 Problem Obesity during third trimester, antepartum O99.213 Active confirmed 523267012 Problem Supervision of other normal Z34.80 Ac tive confirm 801226685 Problem Obesity complicating , second trimester O 99.212 Active confirmed 625477689841 Problem Obesity complicating in second trimester O99.212 Active confirmed 011259926094 Problem Prior poor obstetrical history in second trimest er, antepartum O09.292 Active confirmed 133534320 Problem Pre-existing diabetes mellitus during in second trimester O24.312 Active confirmed ALLERGIES Allergen (clinical drug ingredient) Drug/Non Drug Allergy do cumented on EMR Reaction Allergy Type Onset Date Status Latex Latex Rash Non Drug Allergy Active ENCOUNTERS from 1983 to 2021-01-15 Encounter Location Date Provider Diagnosis [facility] [address] [facility] [phone] [place] [address] Jan, Zack Mildred Pregestational diabe kaci mellitus, modified White class B O24.319 IMMUNIZATIONS Vaccine Route Administration Date Status Influenza 6mo & up Fluzone Unknown Mar 22, 2015 Refus ed SOCIAL HISTORY Tobacco Use: Social History Observation Description Date Details (start date - stop date) Former Smoker Sex Assigned At : Social History Observation Description Sex Assigned At Unknown Tobacco Use: Question Answer Notes Are you a: former smoker How long has it been since you last smoked? 3-6 months REASON FOR REFERRAL No Information VITAL SIGNS No information MEDICATIONS Medication SIG (Take, Route, Frequency, Duration) Notes Start Da te End Date Status Glucose Monitor - as directed O24.419 four times daily for 30 Da ys Aug, Active Test Strips - as directed O24.419 four times daily for 30 Days Aug, Active Flonase 50 MCG/ACT 1 spray in each nostril Nasally twice a day f or 30 day(s) Mar, Not-Taking Alcohol Wipes 70 % as directed O24.419 topically four times jose y for 30 Days Aug, Active metFORMIN HCl 500 MG 1 tablet with evening meal Orally Once a day for 30 day(s) May, Active Sudafed 12 Hour 120 MG 1 tablet as needed Orally every 12 hrs fo r 10 days Mar, Not-Taking Cephalexin 500 MG 1 capsule Orally bid for 7 day(s) Dec Active Lancets - as directed O24.419 four times daily for 30 Days Aug, Active Chlorhexidine Gluconate 2 % as directed Externally once a da y apply over lower abdomen/lesions Dec, Active Omeprazole 40 MG 1 capsule 30 minutes before morning meal Orally Once a day for 30 day(s) Nov, Active Vitamin 27-0.8 MG 1 tablet Orally Once a day Active PROCEDURES No Information RESULTS No Results REASON FOR VISIT RX REFILL MEDICAL (GENERAL) HISTORY Type Description Date Medical History PCOS Medical History ovarian cysts Medical History suprativa hydranitis Surgical History knee surgery Surgical History cholecystectomy Hospitalization History childbirth Goals Section No Information Health Concerns No Information MEDICAL EQUIPMENT No Information MENTAL STATUS No Information FUNCTIONAL STATUS No Information ASSESSMENTS Encounter Date Diagnosis Assessment Notes Treatment Notes Treatm ent Clinical Notes Jan, Pregestational diabetes johann itus, modified White class B (ICD-10 - O24.319) PLAN OF TREATMENT Medication Medication Name Sig Start Date Stop Date Cephalexin 500 MG 1 capsule Orally bid for 7 day(s) Dec, Chlorhexidine Gluconate 2 % as directed Externally once a day Dec, Test Strips - as directed O24.419 four times daily for 30 Days Aug, Next Appt Details Provider Name:Annika Siegel, 2021-01-19 11:20:00 AM, [address] [place] [address], [address] [place] [address], [place], [place], [address] [place] [address], Provider Name:Annika Siegel, 2021-02-02 08:40:00 AM, [address] [place] [address], [address] [place] [address], [place], [address], Provider Name:Ledy Walls, 2021-02-18 0 2:00:00 PM, [address] [place] [address], [address] [place] [address], [place], [place], [address] [place] [address], Provider Name:Ledy Walls, 2021-03-09 0 7:30:00 AM, [address] [place] [address], [address] [place] [address], [place], [address], Provider Name:Sena Posada, 2021-03-09 0 7:30:00 AM, [address] [place] [address], [address] [place] [address], [place], [address], Insurance Providers Payer Name Payer Address Payer Phone Insured Name Patient Relati onship to Insured Coverage Start Date Coverage End Date [facility] [employer] [facility] [address] [facility] [phone] KARIN ROJAS self
--- OUTSIDE RECORDS SUMMARY | 2021-02-25 13:01 | CCD ---
Author Author [facility] Organization [facility] Address Unknown Phone Unavailable Care Team Providers Care Butcher'S Assistant Name Role Phone Annika Siegel Unavailable PROBLEMS Type Condition ICD9-CM Code [id number] Code Onset Dates Condition S tatus W/U Status Risk SNOMED Code Notes Problem Pre-existing diabetes mellit us affecting in first trimester, antepartum O24.311 Active confirmed 773953233 Problem Obesity complicating , first trimester O9 9.211 Active confirmed 231598122252 Problem Pre-existing diabetes mellit us affecting in second trimester, antepartum O24.312 Active confirmed 484702910 Problem Obesity complicating in first trimester O99.211 Active confirmed Problem Pre-existing diabetes mellit us affecting in third trimester, antepartum O24.313 Active confirmed 371677001 Problem Pregestational diabetes mellitus, modified White class B O24.319 Active confirmed 34346904 Problem Obesity during third trimester, antepartum O99.213 Active confirmed 800351897 Problem Supervision of other normal Z34.80 Ac tive confirm 781606228 Problem Obesity complicating , second trimester O 99.212 Active confirmed 117704063611 Problem Obesity complicating in second trimester O99.212 Active confirmed 915277872255 Problem Prior poor obstetrical history in second trimest er, antepartum O09.292 Active confirmed 469498007 Problem Pre-existing diabetes mellitus during in second trimester O24.312 Active confirmed ALLERGIES Allergen (clinical drug ingredient) Drug/Non Drug Allergy do cumented on EMR Reaction Allergy Type Onset Date Status Latex Latex Rash Drug Allergy Active ENCOUNTERS from 1983 to 2021-02-22 Encounter Location Date Provider Diagnosis [facility] [address] [facility] [phone] [place] [address] Feb, Annika Siegel Other viral diseases complicating , third trimester O98.513 IMMUNIZATIONS Vaccine Route Administration Date Status Influenza [...] Notes Start Da te End Date Status Heparin Sodium (Porcine) 62790 UNIT/ML 1 ml Injection every 12 hrs for 30 day(s) Feb, Active metFORMIN HCl 500 MG 1 tablet with evening meal Orally Once a day for 30 day(s) May, Active Test Strips - as directed O24.419 four times daily for 30 Days Aug, Active Cephalexin 500 MG 1 capsule Orally bid for 7 day(s) Dec Active Alcohol Wipes 70 % as directed O24.419 topically four times jose y for 30 Days Aug, Active Chlorhexidine Gluconate 2 % as directed Externally once a da y apply over lower abdomen/lesions Dec, Active Lancets - as directed O24.419 four times daily for 30 Days Aug, Active Sharps Container - as directed Jan, Act joel Glucose Monitor - as directed O24.419 four times daily for 30 Da ys Aug, Active Sudafed 12 Hour 120 MG 1 tablet as needed Orally every 12 hrs fo r 10 days Mar, Not-Taking Omeprazole 40 MG 1 capsule 30 minutes before morning meal Orally Once a day for 30 day(s) Nov, Active Flonase 50 MCG/ACT 1 spray in each nostril Nasally twice a day f or 30 day(s) Mar, Not-Taking Sharps Container - as directed Feb, Act joel Vitamin 27-0.8 MG 1 tablet Orally Once a day Active Insulin Syringe-Needle U-100 27G X 1/2" 0.5 ML as dire cted subcutaneous twice per day for 30 days Feb, Active PROCEDURES No Information RESULTS No Results REASON FOR VISIT syringes MEDICAL (GENERAL) HISTORY Type Description Date Medical History PCOS Medical History ovarian cysts Medical History suprativa hydranitis Surgical History knee surgery Surgical History cholecystectomy Hospitalization History childbirth Goals Section No Information Health Concerns No Information MEDICAL EQUIPMENT No Information MENTAL STATUS No Information FUNCTIONAL STATUS No Information ASSESSMENTS Encounter Date Diagnosis Assessment Notes Treatment Notes Treatm ent Clinical Notes Feb, Other viral diseases complic ating , third trimester (ICD- 10 - O98.513) PLAN OF TREATMENT Medication Medication Name Sig Start Date Stop Date Insulin Syringe-Needle U-100 27G X 1/2" 0.5 ML as dire cted subcutaneous twice per day for 30 days Feb, Sharps Container - as directed Feb, Heparin Sodium (Porcine) 42607 UNIT/ML 1 ml Injection every 12 hrs for 30 day(s) Feb, Next Appt Details Provider Name:Annika Siegel, 2021-02-25 09:00:00 AM, [address] [place] [address], [place], [address], Provider Name:Annika Siegel, 2021-03-04 11:00:00 AM, [address] [place] [address], [place], [address], Provider Name:Ledy Walls, 2021-03-09 0 7:30:00 AM, [address] [place] [address], [place], [address], Provider Name:Sena Posada, 2021-03-09 0 7:30:00 AM, [address] [place] [address], [place], [address], Provider Name:Ledy Walls, 2021-03-23 0 3:00:00 PM, [address] [place] [address], [place], [address], Provider Name:Ledy Walls 2021-05-05 1 1:40:00 AM, [address] [place] [address]785-[address], [place], [address], Insurance Providers Payer Name Payer Address Payer Phone Insured Name Patient Relati onship to Insured Coverage Start Date Coverage End Date [facility] COMMUNITY PLAN [facility] [address] [facility] [phone] KARIN ROJAS self
--- OUTSIDE RECORDS SUMMARY | 2021-02-25 13:01 | CCD ---
Author Author [facility] Organization [facility] Address Unknown Phone Unavailable Care Team Providers Care Incident Analyst Name Role Phone Ledy Walls Unavailable PROBLEMS Type Condition ICD9-CM Code [id number] Code Onset Dates Condition S tatus W/U Status Risk SNOMED Code Notes Problem Pre-existing diabetes mellit us affecting in first trimester, antepartum O24.311 Active confirmed 811798168 Problem Obesity complicating , first trimester O9 9.211 Active confirmed 803218858740 Problem Pre-existing diabetes mellit us affecting in second trimester, antepartum O24.312 Active confirmed 891876783 Problem Obesity complicating in first trimester O99.211 Active confirmed Problem Pre-existing diabetes mellit us affecting in third trimester, antepartum O24.313 Active confirmed 661476535 Problem Pregestational diabetes mellitus, modified White class B O24.319 Active confirmed 37973565 Problem Obesity during third trimester, antepartum O99.213 Active confirmed 329612811 Problem Supervision of other normal Z34.80 Ac tive confirm 241145188 Problem Obesity complicating , second trimester O 99.212 Active confirmed 904070462060 Problem Obesity complicating in second trimester O99.212 Active confirmed 164101517361 Problem Prior poor obstetrical history in second trimest er, antepartum O09.292 Active confirmed 526609468 Problem Pre-existing diabetes mellitus during in second trimester O24.312 Active confirmed ALLERGIES Allergen (clinical drug ingredient) Drug/Non Drug Allergy do cumented on EMR Reaction Allergy Type Onset Date Status Latex Latex Rash Non Drug Allergy Active ENCOUNTERS from 1983 to 2021-01-20 Encounter Location Date Provider Diagnosis [facility] [address] [facility] [phone] [place] [address] Jan, Ledy Walls IMMUNIZATIONS Vaccine Route Administration Date Status Influenza [...] daily for 30 Da ys Aug, Active Flonase 50 MCG/ACT 1 spray in each nostril Nasally twice a day f or 30 day(s) Mar, Not-Taking Alcohol Wipes 70 % as directed O24.419 topically four times jose y for 30 Days Aug, Active Vitamin 27-0.8 MG 1 tablet Orally Once a day Active Chlorhexidine Gluconate 2 % as directed Externally once a da y apply over lower abdomen/lesions Dec, Active Cephalexin 500 MG 1 capsule Orally bid for 7 day(s) Dec Active Sudafed 12 Hour 120 MG 1 tablet as needed Orally every 12 hrs fo r 10 days Mar, Not-Taking metFORMIN HCl 500 MG 1 tablet with evening meal Orally Once a day for 30 day(s) May, Active Lancets - as directed O24.419 four times daily for 30 Days Aug, Active Sharps Container - as directed Jan, Act joel Omeprazole 40 MG 1 capsule 30 minutes before morning meal Orally Once a day for 30 day(s) Nov, Active Test Strips - as directed O24.419 four times daily for 30 Days Aug, Active PROCEDURES No Information RESULTS No Results REASON FOR VISIT 03/09/21 SURG AUTH MEDICAL (GENERAL) HISTORY Type Description Date Medical History PCOS Medical History ovarian cysts Medical History suprativa hydranitis Surgical History knee surgery Surgical History cholecystectomy Hospitalization History childbirth Goals Section No Information Health Concerns No Information MEDICAL EQUIPMENT No Information MENTAL STATUS No Information FUNCTIONAL STATUS No Information ASSESSMENTS No Information PLAN OF TREATMENT Medication Medication Name Sig Start Date Stop Date Alcohol Wipes 70 % as directed O24.419 topically four times daily for 30 Days Aug, Sharps Container - as directed Jan, Lancets - as directed O24.419 four times daily for 30 Days Aug, Next Appt Details Provider Name:Annika Siegel, 2021-02-02 08:40:00 AM, [address] [place] [address], , [place], [address], Provider Name:Ledy Walls, 2021-02-18 1 0:20:00 AM, [address] [place] [address], , [place], [address], Provider Name:Annika Siegel, 2021-02-25 09:00:00 AM, [address] [place] [address], , [place], [address], Provider Name:Annika Siegel, 2021-03-04 11:00:00 AM, [address] [place] [address], , [place], [address], Provider Name:Ledy Walls, 2021-03-09 0 7:30:00 AM, [address] [place] [address], , [place], [address], Provider Name:Sena Posada, 2021-03-09 0 7:30:00 AM, [address] [place] [address], , [place], [address], Provider Name:Ledy Walls, 2021-03-23 0 3:00:00 PM, [address] [place] [address], , [place], [address], Provider Name:Ledy Walls, 2021-05-05 1 1:40:00 AM, [address] [place] [address], , [place], [address], Insurance Providers Payer Name Payer Address Payer Phone Insured Name Patient Relati onship to Insured Coverage Start Date Coverage End Date [facility] COMMUNITY PLAN [facility] [address] [facility] [phone] KARIN ROJAS self
--- OUTSIDE RECORDS SUMMARY | 2021-02-25 13:01 | CCD ---
Author Author [facility] Organization [facility] Address Unknown Phone Unavailable Care Team Providers Care Slime Plant Operator Name Role Phone Zack Levy Unavailable PROBLEMS Type Condition ICD9-CM Code [id number] Code Onset Dates Condition S tatus W/U Status Risk SNOMED Code Notes Problem Pre-existing diabetes mellit us affecting in first trimester, antepartum O24.311 Active confirmed 740145526 Problem Obesity complicating , first trimester O9 9.211 Active confirmed 925307578413 Problem Pre-existing diabetes mellit us affecting in second trimester, antepartum O24.312 Active confirmed 545658242 Problem Obesity complicating in first trimester O99.211 Active confirmed Problem Pre-existing diabetes mellit us affecting in third trimester, antepartum O24.313 Active confirmed 953006988 Problem Pregestational diabetes mellitus, modified White class B O24.319 Active confirmed 15432534 Problem Obesity during third trimester, antepartum O99.213 Active confirmed 115738941 Problem Supervision of other normal Z34.80 Ac tive confirm 776782623 Problem Obesity complicating , second trimester O 99.212 Active confirmed 956364009541 Problem Obesity complicating in second trimester O99.212 Active confirmed 954085013628 Problem Prior poor obstetrical history in second trimest er, antepartum O09.292 Active confirmed 107040301 Problem Pre-existing diabetes mellitus during in second trimester O24.312 Active confirmed ALLERGIES Allergen (clinical drug ingredient) Drug/Non Drug Allergy do cumented on EMR Reaction Allergy Type Onset Date Status Latex Latex Rash Non Drug Allergy Active ENCOUNTERS from 1983 to 2021-02-18 Encounter Location Date Provider Diagnosis [facility] [address] [facility] [phone] [place] [address] Feb, Zack Levy Other viral diseases complicating , third trimester O98.513 and COVID-19 U07.1 IMMUNIZATIONS Vaccine Route Administration Date Status Influenza [...] Notes Start Da te End Date Status Sharps Container - as directed Jan, Act joel Glucose Monitor - as directed O24.419 four times daily for 30 Da ys Aug, Active Alcohol Wipes 70 % as directed O24.419 topically four times jose y for 30 Days Aug, Active Test Strips - as directed O24.419 four times daily for 30 Days Aug, Active Cephalexin 500 MG 1 capsule Orally bid for 7 day(s) Dec Active Lancets - as directed O24.419 four times daily for 30 Days Aug, Active Heparin Sodium (Porcine) 71359 UNIT/ML 1 ml Injection every 12 hrs for 30 day(s) Feb, Active Vitamin 27-0.8 MG 1 tablet Orally Once a day Active Sudafed 12 Hour 120 MG 1 tablet as needed Orally every 12 hrs fo r 10 days Mar, Not-Taking metFORMIN HCl 500 MG 1 tablet with evening meal Orally Once a day for 30 day(s) May, Active Flonase 50 MCG/ACT 1 spray in each nostril Nasally twice a day f or 30 day(s) Mar, Not-Taking Chlorhexidine Gluconate 2 % as directed Externally once a da y apply over lower abdomen/lesions Dec, Active Omeprazole 40 MG 1 capsule 30 minutes before morning meal Orally Once a day for 30 day(s) Nov, Active PROCEDURES No Information RESULTS No Results REASON FOR VISIT No Information MEDICAL (GENERAL) HISTORY Type Description Date Medical [...] , third trimester (ICD- 10 - O98.513) Feb, COVID-19 (ICD-10 - U07.1) PLAN OF TREATMENT Medication Medication Name Sig Start Date Stop Date Heparin Sodium (Porcine) 95943 UNIT/ML 1 ml Injection every 12 hrs for 30 day(s) Feb, Next Appt Details Provider Name:Annika Siegel, 2021-02-25 09:00:00 AM, [address] [place] [address], [address] [place] [address], [place], [address], Provider Name:Annika Siegel, 2021-03-04 11:00:00 AM, [address] [place] [address], [place], [address], Provider Name:Ledy Walls, 2021-03-09 0 7:30:00 AM, [address] [place] [address], [address] [place] [address], [place], [address], Provider Name:Sena Posada, 2021-03-09 0 7:30:00 AM, [address] [place] [address], [address] [place] [address], [place], [address], Provider Name:Ledy Walls, 2021-03-23 0 3:00:00 PM, [address] [place] [address], [address] [place] [address], [place], [address], Provider Name:Ledy Walls, 2021-05-05 1 1:40:00 AM, [address] [place] [address], [place], [address], Insurance Providers Payer Name Payer Address Payer Phone Insured Name Patient Relati onship to Insured Coverage Start Date Coverage End Date [facility] COMMUNITY PLAN [facility] [address] [facility] [phone] KARIN ROJAS self
--- OUTSIDE RECORDS SUMMARY | 2021-02-25 13:01 | CCD ---
Author Author [facility] Organization [facility] Address Unknown Phone Unavailable Care Team Providers Care Operations Tech Name Role Phone Annika Siegel Unavailable PROBLEMS Type Condition ICD9-CM Code [id number] Code Onset Dates Condition S tatus W/U Status Risk SNOMED Code Notes Problem Pre-existing diabetes mellit us affecting in first trimester, antepartum O24.311 Active confirmed 136423644 Problem Obesity complicating , first trimester O9 9.211 Active confirmed 634320367738 Problem Pre-existing diabetes mellit us affecting in second trimester, antepartum O24.312 Active confirmed 999975846 Problem Obesity complicating in first trimester O99.211 Active confirmed Problem Pre-existing diabetes mellit us affecting in third trimester, antepartum O24.313 Active confirmed 251420137 Problem Pregestational diabetes mellitus, modified White class B O24.319 Active confirmed 82829237 Problem Obesity during third trimester, antepartum O99.213 Active confirmed 447188889 Problem Supervision of other normal Z34.80 Ac tive confirm 998369703 Problem Obesity complicating , second trimester O 99.212 Active confirmed 826911408579 Problem Obesity complicating in second trimester O99.212 Active confirmed 997710999612 Problem Prior poor obstetrical history in second trimest er, antepartum O09.292 Active confirmed 942854375 Problem Pre-existing diabetes mellitus during in second trimester O24.312 Active confirmed ALLERGIES Allergen (clinical drug ingredient) Drug/Non Drug Allergy do cumented on EMR Reaction Allergy Type Onset Date Status Latex Latex Rash Non Drug Allergy Active ENCOUNTERS from 1983 to 2021-02-07 Encounter Location Date Provider Diagnosis [facility] [address] [facility] [phone] [place] [address] Jan, Annika Siegel History of maternal fourth degree perineal laceration, currently in third trimester O09.293 ; Pregestational diabetes mellitus, modified White class B O24.319 and 31 weeks gestation of Z3A.31 IMMUNIZATIONS Vaccine Route Administration Date Status Influenza [...] REASON FOR REFERRAL No Information VITAL SIGNS Weight 298 lbs Jan, Weight-kg 135.17 kg Jan, Height 63 in Jan, BMI 52.788 kg/m2 Jan, Blood pressure systolic 112 mm Hg Jan, Blood pressure diastolic 70 mm Hg Jan, MEDICATIONS Medication SIG (Take, Route, Frequency, Duration) Notes Start Da te End Date Status Lancets - as directed O24.419 four times daily for 30 Days Aug, Active Glucose Monitor - as directed O24.419 four times daily for 30 Da ys Aug, Active Omeprazole 40 MG 1 capsule 30 minutes before morning meal Orally Once a day for 30 day(s) Nov, Active Vitamin 27-0.8 MG 1 tablet Orally Once a day Active Cephalexin 500 MG 1 capsule Orally bid for 7 day(s) Dec Active Chlorhexidine Gluconate 2 % as directed Externally once a da y apply over lower abdomen/lesions Dec, Active Test Strips - as directed O24.419 four times daily for 30 Days Aug, Active Flonase 50 MCG/ACT 1 spray in each nostril Nasally twice a day f or 30 day(s) Mar, Not-Taking metFORMIN HCl 500 MG 1 tablet with evening meal Orally Once a day for 30 day(s) May, Active Sharps Container - as directed Jan, Act joel Sudafed 12 Hour 120 MG 1 tablet as needed Orally every 12 hrs fo r 10 days Mar, Not-Taking Alcohol Wipes 70 % as directed O24.419 topically four times jose y for 30 Days Aug, Active PROCEDURES No Information RESULTS No Results REASON FOR VISIT 2 wk pn MEDICAL (GENERAL) HISTORY Type Description Date Medical History PCOS Medical History ovarian cysts Medical History suprativa hydranitis Surgical History knee surgery Surgical History cholecystectomy Hospitalization History childbirth Goals Section No Information Health Concerns No Information MEDICAL EQUIPMENT No Information MENTAL STATUS No Information FUNCTIONAL STATUS No Information ASSESSMENTS Encounter Date Diagnosis Assessment Notes Treatment Notes Treatm ent Clinical Notes Jan, History of maternal fourth d egree perineal laceration, currently in third trimester (ICD-10 - O09.293) Jan, Pregestational diabetes johann itus, modified White class B (ICD-10 - O24.319) Jan, 31 weeks gestation of (ICD-10 - Z3A.31 ) PLAN OF TREATMENT Next Appt Details 2 Weeks Reason:PN Provider Name:Ledy Walls, 2021-02-18 1 0:20:00 AM, [address] [place] [address], [place], [address], Provider Name:Annika Siegel, 2021-02-25 09:00:00 AM, [address] [place] [address], [place], [address], Provider Name:Annika Siegel, 2021-03-04 11:00:00 AM, [address] [place] [address], [place], [address], Provider Name:Ledy Walls, 2021-03-09 0 7:30:00 AM, [address] [place] [address], [address] [place] [address], [place], [address], Provider Name:Sena Posada, 2021-03-09 0 7:30:00 AM, [address] [place] [address], [place], [address], Provider Name:Ledy Walls 2021-03-23 0 3:00:00 PM, [address] [place], [place] [address], [place], [address], Provider Name:Ledy Walls, 2021-05-05 1 1:40:00 AM, [address] [facility], , [place], [address], Follow Up:2 WeeksPN Insurance Providers Payer Name Payer Address Payer Phone Insured Name Patient Relati onship to Insured Coverage Start Date Coverage End Date [facility] COMM[employer]AN [facility] [address] [facility] [phone] KARIN ROJAS self
--- OUTSIDE RECORDS SUMMARY | 2021-02-25 13:01 | CCD ---
Author Author [facility] Organization [facility] Address Unknown Phone Unavailable Care Team Providers Care Music Therapy Specialist Name Role Phone Annika Siegel Unavailable PROBLEMS Type Condition ICD9-CM Code [id number] Code Onset Dates Condition S tatus W/U Status Risk SNOMED Code Notes Problem Pre-existing diabetes mellit us affecting in first trimester, antepartum O24.311 Active confirmed 097755558 Problem Obesity complicating , first trimester O9 9.211 Active confirmed 976104992016 Problem Pre-existing diabetes mellit us affecting in second trimester, antepartum O24.312 Active confirmed 695070856 Problem Obesity complicating in first trimester O99.211 Active confirmed Problem Pre-existing diabetes mellit us affecting in third trimester, antepartum O24.313 Active confirmed 410646442 Problem Pregestational diabetes mellitus, modified White class B O24.319 Active confirmed 40085209 Problem Obesity during third trimester, antepartum O99.213 Active confirmed 971321193 Problem Supervision of other normal Z34.80 Ac tive confirm 472780689 Problem Obesity complicating , second trimester O 99.212 Active confirmed 071932071691 Problem Obesity complicating in second trimester O99.212 Active confirmed 415389758001 Problem Prior poor obstetrical history in second trimest er, antepartum O09.292 Active confirmed 595590538 Problem Pre-existing diabetes mellitus during in second trimester O24.312 Active confirmed ALLERGIES Allergen (clinical drug ingredient) Drug/Non Drug Allergy do cumented on EMR Reaction Allergy Type Onset Date Status Latex Latex Rash Non Drug Allergy Active ENCOUNTERS from 1983 to 2021-02-17 Encounter Location Date Provider Diagnosis [facility] [address] [facility] [phone] [place] [address] Jan, Annika Siegel Pregestational diabe kaci mellitus, modified White class B O24.319 ; Pre-existing diabetes mellitus affecting in third trimester, antepartum O24.313 and 33 weeks gestation of Z3A.33 IMMUNIZATIONS Vaccine Route Administration Date Status Influenza [...] FOR REFERRAL No Information VITAL SIGNS Weight 300.8 lbs Jan, Height 63 in Jan, BMI 53.284 kg/m2 Jan, Blood pressure systolic 116 mm Hg Jan, Blood pressure diastolic 74 mm Hg Jan, MEDICATIONS Medication SIG (Take, [...] White class B (ICD-10 - O24.319) Jan, Pre-existing diabetes mellit us affecting in third trimester, antepartum (ICD-10 - O24.313) Jan, 33 weeks gestation of (ICD-10 - Z3A.33 ) PLAN OF TREATMENT Next Appt Details 1 Week Reason:COB Provider Name:Ledy Walls, 2021-02-18 1 0:20:00 AM, [address] [place] [address], [place], [address], Provider Name:Annika Siegel, 2021-02-25 09:00:00 AM, [address] [place] [address], [address] [place] [address], [place], [address], Provider Name:Annika Siegel, 2021-03-04 11:00:00 AM, [address] [place] [address], [address] [place] [address], [place], [address], Provider Name:Ledy Walls, 2021-03-09 0 7:30:00 AM, [address] [place] [address], [place], [address], Provider Name:Sena Posada, 2021-03-09 0 7:30:00 AM, [address] [place] [address], [place], [address], Provider Name:Ledy Walls, 2021-03-23 0 3:00:00 PM, [address] [place] [address], [place], [address], Provider Name:Ledy Walls, 2021-05-05 1 1:40:00 AM, [address] [facility], , [place], [address], Follow Up:1 WeekCOB Insurance Providers Payer Name Payer Address Payer Phone Insured Name Patient Relati onship to Insured Coverage Start Date Coverage End Date [facility] COMMUNITY PLAN [facility] [address] [facility] [phone] KARIN ROJAS self
--- OUTSIDE RECORDS SUMMARY | 2021-02-25 13:02 | CCD ---
Author Author [facility] Organization [facility] Address Unknown Phone Unavailable Care Team Providers Care Dragline Engineer Name Role Phone Aparna Blum Unavailable PROBLEMS Type Condition ICD9-CM Code [id number] Code Onset Dates Condition S tatus W/U Status Risk SNOMED Code Notes Problem Supervision of other normal Z34.80 Ac tive confirm 928752518 Problem Pregestational diabetes mellitus, modified White class B O24.319 Active confirmed 59121243 Problem Pre-existing diabetes mellit us affecting in first trimester, antepartum O24.311 Active confirmed 415573639 Problem Prior poor obstetrical history in second trimest er, antepartum O09.292 Active confirmed 735458245 Problem Obesity complicating in first trimester O99.211 Active confirmed Problem Pre-existing diabetes mellitus during in second trimester O24.312 Active confirmed Problem Obesity complicating , first trimester O9 9.211 Active confirmed 883485494125 Problem Pre-existing diabetes mellit us affecting in second trimester, antepartum O24.312 Active confirmed 992343339 Problem Obesity complicating , second trimester O 99.212 Active confirmed 999314686296 Problem Obesity complicating in second trimester O99.212 Active confirmed 667814628743 ALLERGIES Allergen (clinical drug ingredient) Drug/Non Drug Allergy do cumented on EMR Reaction Allergy Type Onset Date Status Latex Latex Rash Non Drug Allergy Active ENCOUNTERS from 1983 to 2020-12-23 Encounter Location Date Provider Diagnosis [facility] [address] [place] [place] [address] [place] [address] [facility] O09.522 ; Pre-existing diabetes mellitus during in second trimester O24.312 ; Obesity complicating in second trimester O99.212 ; 27 weeks gestation of Z3A.27 and Pregestational diabetes mellitus, modified White class B O24.319 IMMUNIZATIONS [...] FOR REFERRAL No Information VITAL SIGNS Weight 290 lbs Dec, Weight-kg 131.54 kg Dec, Height 63 in Dec, BMI 51.371 kg/m2 Dec, Blood pressure systolic 110 mm Hg Dec, Blood pressure diastolic 72 mm Hg Dec, MEDICATIONS Medication SIG (Take, Route, Frequency, Duration) Notes Start Da te End Date Status Test Strips - as directed O24.419 four times daily for 30 Days Aug, Active metFORMIN HCl 500 MG 1 tablet with evening meal Orally Once a day for 30 day(s) May, Active Flonase 50 MCG/ACT 1 spray in each nostril Nasally twice a day f or 30 day(s) Mar, Not-Taking Alcohol Wipes 70 % as directed O24.419 topically four times jose y for 30 Days Aug, Active Omeprazole 40 MG 1 capsule 30 minutes before morning meal Orally Once a day for 30 day(s) Nov, Active Glucose Monitor - as directed O24.419 four times daily for 30 Da ys Aug, Active Vitamin 27-0.8 MG 1 tablet Orally Once a day Active Lancets - as directed O24.419 four times daily for 30 Days Aug, Active Sudafed 12 Hour 120 MG 1 tablet as needed Orally every 12 hrs fo r 10 days Mar, Not-Taking PROCEDURES No Information RESULTS No Results REASON FOR VISIT 2 WK PN MEDICAL (GENERAL) HISTORY Type Description Date Medical History PCOS Medical History ovarian cysts Medical History suprativa hydranitis Surgical History knee surgery Surgical History cholecystectomy Hospitalization History childbirth Goals Section No Information Health Concerns No Information MEDICAL EQUIPMENT No Information MENTAL STATUS No Information FUNCTIONAL STATUS No Information ASSESSMENTS Encounter Date Diagnosis Assessment Notes Treatment Notes Treatm ent Clinical Notes Dec, Elderly multigravida in second trimester (ICD-10 - O09.522) Dec, Pre-existing diabetes mellit us during in second trimester (ICD-10 - O24.312) Dec, Obesity complicating pregnan cy in second trimester (ICD-10 - O99.212) Dec, 27 weeks gestation of (ICD-10 - Z3A.27 ) Dec, Pregestational diabetes johann itus, modified White class B (ICD-10 - O24.319) PLAN OF TREATMENT Treatment Notes Test Name Order Date CBC - Complete Blood Count 2020-12-22 Type and Screen (D Rh Antibody Screen) 2020-12-22 AB SCREEN (INDIRECT PAIGE)GEL Antibody Screen 2020-12 HEMOGLOBIN A1c 2020-12-22 [facility] OBS FOLLOW UP OR REPEAT 2020-12-22 [facility] BPP W/O NON STRESS TEST 2020-12-22 Next Appt Details 2 Weeks Reason:- Complicated OB follow up Provider Name:Zack Levy, 09:00:00 AM, [address] [place] [address], [place], [address], Provider Name:Annika Siegel, 2021-01-19 11:20:00 AM, [address] [place] [address], [place], [address], Provider Name:Annika Siegel, 2021-02-02 08:40:00 AM, [address] [place] [address], [place], [address], Provider Name:Ledy Walls, 2021-02-18 0 2:00:00 PM, [address] [place] [address], [place], [address], Provider Name:Ledy Walls, 2021-03-09 0 7:30:00 AM, [address] [place] [address] , [place], [address], Provider Name:Sena Posada, 2021-03-09 0 7:30:00 AM, [address] [facility], , [place], [address], Follow Up:2 Weeks- Complicated OB follow up Insurance Providers Payer Name Payer Address Payer Phone Insured Name Patient Relati onship to Insured Coverage Start Date Coverage End Date [facility] COMM[facility] [address] [facility] [phone] KARIN ROJAS self
--- OUTSIDE RECORDS SUMMARY | 2021-02-25 13:02 | CCD ---
Author Author [facility] Organization [facility] Address Unknown Phone Unavailable Care Team Providers Care Body Former Name Role Phone Zack Levy Unavailable PROBLEMS Type Condition ICD9-CM Code [id number] Code Onset Dates Condition S tatus W/U Status Risk SNOMED Code Notes Problem Pre-existing diabetes mellit us affecting in first trimester, antepartum O24.311 Active confirmed 442855105 Problem Obesity complicating , first trimester O9 9.211 Active confirmed 792804881078 Problem Pre-existing diabetes mellit us affecting in second trimester, antepartum O24.312 Active confirmed 385554940 Problem Obesity complicating in first trimester O99.211 Active confirmed Problem Pre-existing diabetes mellit us affecting in third trimester, antepartum O24.313 Active confirmed 473282669 Problem Pregestational diabetes mellitus, modified White class B O24.319 Active confirmed 09108318 Problem Obesity during third trimester, antepartum O99.213 Active confirmed 431418259 Problem Supervision of other normal Z34.80 Ac tive confirm 654435914 Problem Obesity complicating , second trimester O 99.212 Active confirmed 786724866900 Problem Obesity complicating in second trimester O99.212 Active confirmed 354190676856 Problem Prior poor obstetrical history in second trimest er, antepartum O09.292 Active confirmed 888322289 Problem Pre-existing diabetes mellitus during in second trimester O24.312 Active confirmed ALLERGIES Allergen (clinical drug ingredient) Drug/Non Drug Allergy do cumented on EMR Reaction Allergy Type Onset Date Status Latex Latex Rash Non Drug Allergy Active ENCOUNTERS from 1983 to 2021-01-06 Encounter Location Date Provider Diagnosis [facility] [address] [facility] [phone] [place] [address] Dec, Zack Levy Pre-existing diabete s mellitus affecting in third trimester, antepartum O24.313 ; Obesity during third trimester, antepartum O99.213 ; Encounter for supervision of elderly multigravida in third trimester, antepartum O09.523 ; 28 weeks gestation of Z3A.28 and Hidradenitis suppurativa L73.2 IMMUNIZATIONS Vaccine Route Administration Date Status Influenza [...] FOR REFERRAL No Information VITAL SIGNS Weight 293 lbs Dec, Weight-kg 132.9 kg Dec, Height 63 in Dec, BMI 51.903 kg/m2 Dec, Blood pressure systolic 112 mm Hg Dec, Blood pressure diastolic 74 mm Hg Dec, MEDICATIONS Medication SIG (Take, Route, Frequency, Duration) Notes Start Da te End Date Status Glucose Monitor - as directed O24.419 four times daily for 30 Da ys Aug, Active Cephalexin 500 MG 1 capsule Orally bid for 7 day(s) Dec Active Flonase 50 MCG/ACT 1 spray in [...] hrs fo r 10 days Mar, Not-Taking Vitamin 27-0.8 MG 1 tablet Orally Once a day Active Lancets - as directed O24.419 four times daily for 30 Days Aug, Active Chlorhexidine Gluconate 2 % as directed Externally once a da y apply over lower abdomen/lesions Dec, Active Omeprazole 40 MG 1 capsule 30 minutes before morning meal Orally Once a day for 30 day(s) Nov, Active metFORMIN HCl 500 MG 1 tablet with evening meal Orally Once a day for 30 day(s) May, Active PROCEDURES No Information RESULTS No Results [...] Treatment Notes Treatm ent Clinical Notes Dec, Pre-existing diabetes mellit us affecting in third trimester, antepartum (ICD-10 - O24.313) Dec, Obesity during third trimester, antepartum (ICD- 10 - O99.213) Dec, Encounter for supervision of elderly multigravida in third trimester, antepartum (ICD-10 - O09.523) Dec, 28 weeks gestation of (ICD-10 - Z3A.28 ) Dec, Hidradenitis suppurativa (ICD-10 - L73.2) PLAN OF TREATMENT Medication Medication Name Sig Start Date Stop Date Cephalexin 500 MG 1 capsule Orally bid for 7 day(s) Dec, Chlorhexidine Gluconate 2 % as directed Externally once a day Dec, Next Appt Details 2 Weeks Reason:- COB appt with testing Provider Name:Annika Siegel, 2021-01-19 11:20:00 AM, [address] [place], [place] [address], [place], [address], Provider Name:Annika Siegel, 2021-02-02 08:40:00 AM, [address] [place] [address], [place], [address], Provider Name:Ledy Walls 2021-02-18 0 2:00:00 PM, [address] [place] [address], [place], [address], Provider Name:Ledy Walls 2021-03-09 0 7:30:00 AM, [address] [facility], , [place], [address], Provider Name:Sena Camelia Posada, 2021-03-09 0 7:30:00 AM, [address] [facility], , [place], [address], Follow Up:2 Weeks- COB appt with testing Insurance Providers Payer Name Payer Address Payer Phone Insured Name Patient Relati onship to Insured Coverage Start Date Coverage End Date [facility] COMMUNITY PLAN [facility] [address] [facility] [phone] KARIN ROJAS self
--- OUTSIDE RECORDS SUMMARY | 2021-02-25 13:02 | CCD ---
Author Author [facility] Organization [facility] Address Unknown Phone Unavailable Care Team Providers Care Architectural Technologist Name Role Phone Zack Levy Unavailable PROBLEMS Type Condition ICD9-CM Code [id number] Code Onset Dates Condition S tatus W/U Status Risk SNOMED Code Notes Problem Obesity complicating in first trimester O99.211 Active confirmed Problem Supervision of other normal Z34.80 Ac tive confirm 467550168 Problem Pregestational diabetes mellitus, modified White class B O24.319 Active confirmed 22666115 Problem Obesity complicating in second trimester O99.212 Active confirmed 828071347035 Problem Prior poor obstetrical history in second trimest er, antepartum O09.292 Active confirmed 265006448 Problem Obesity complicating , first trimester O9 9.211 Active confirmed 048459706735 Problem Pre-existing diabetes mellit us affecting in first trimester, antepartum O24.311 Active confirmed 634793174 Problem Obesity complicating , second trimester O 99.212 Active confirmed 413017235100 Problem Pre-existing diabetes mellit us affecting in second trimester, antepartum O24.312 Active confirmed 643629825 ALLERGIES Allergen (clinical drug ingredient) Drug/Non Drug Allergy do cumented on EMR Reaction Allergy Type Onset Date Status Latex Rash Non Drug Allergy Active ENCOUNTERS from 1983 to 2020-12-11 Encounter Location Date Provider Diagnosis [facility] [address] [place] [address] [place] [address] Nov, Zack Levy Obesity complicating , second trimester O99.212 ; Prior poor obstetrical history in second trimester, antepartum O09.292 ; Pre-existing diabetes mellitus affecting in second trimester, antepartum O24.312 and 25 weeks gestation of Z3A.25 IMMUNIZATIONS Vaccine Route Administration Date Status Influenza [...] FOR REFERRAL No Information VITAL SIGNS Weight 288 lbs Nov, Weight-kg 130.63 kg Nov, Height 63 in Nov, BMI 51.017 kg/m2 Nov, Blood pressure systolic 108 mm Hg Nov, Blood pressure diastolic 70 mm Hg Nov, MEDICATIONS Medication SIG (Take, Route, Frequency, Duration) Notes Start Da te End Date Status Vitamin 27-0.8 MG 1 tablet Orally Once a day Active Lancets - as directed O24.419 four times daily for 30 Days Aug, Active metFORMIN HCl 500 MG 1 tablet with evening meal Orally Once a day for 30 day(s) May, Active Omeprazole 40 MG 1 capsule 30 [...] jose y for 30 Days Aug, Active Sudafed 12 Hour 120 MG 1 tablet as needed Orally every 12 hrs fo r 10 days Mar, Not-Taking Test Strips - as directed O24.419 four [...] Notes Treatment Notes Treatm ent Clinical Notes Nov, Obesity complicating pregnan cy, second trimester (ICD-10 - O99.212) Nov, Prior poor obstetrical histo ry in second trimester, antepartum (ICD-10 - O09.292) Nov, Pre-existing diabetes mellit us affecting in second trimester, antepartum (ICD-10 - O24.312) Nov, 25 weeks gestation of (ICD-10 - Z3A.25 ) PLAN OF TREATMENT Next Appt Details 2 Weeks Reason:- Complicated OB follow up Provider Name:Aparna Blum, 2020-12-22 09:00:00 AM, [address] [place] [address], [address] [place] [address], [place], [address], Provider Name:Zack Levy, 09:00:00 AM, [address] [place] [address], [address] [place] [address], [place], [address], Provider Name:Ledy Walls, 2021-02-18 0 2:00:00 PM, [address] [place] [address], , [place], [address], Provider Name:Ledy Walls, 2021-03-09 0 7:30:00 AM, [address] [place] [address], [address] [place] [address], [place], [address], Provider Name:Sena Posada, 2021-03-09 0 7:30:00 AM, [address] [place] [address], , [place], [address], Follow Up:2 Weeks- Complicated OB follow up Insurance Providers Payer Name Payer Address Payer Phone Insured Name Patient Relati onship to Insured Coverage Start Date Coverage End Date [facility] COMM[facility] [address] [facility] [phone] KARIN ROJAS self
--- OUTSIDE RECORDS SUMMARY | 2021-02-25 13:02 | CCD ---
Author Author [facility] Address Unknown Phone Unavailable Support Name Relationship Address Phone DPAO Next Of Kin [address] [place] [address] UE Next Of Kin Unknown Unavailable [facility] CEREBRAL PALSY Next Of Kin [address] [place] [address] [facility] Next Of Kin [address] [place] [address] [facility] Next Of Kin [address] [place] [address] MICHAEL ROJAS Next Of Kin [address] [place] [address] ROBBI CROWELL Next Of Kin [address] [facility], [address] Unavailable MILKA, AUTOM Next Of Kin [address] [place] [address] MILKA, NIKOLAI Next Of Kin [address] [place] [address] [facility] [place] [address] [facility]* Next [place] [id number] Camelia CLARKE Next Of Kin [address] [place] [address] Camelia CLARKE ECON [address] [place] [phone] MICHAEL ROJAS ECON [address] [place] [id number] Unavailable Re-disclosure Warning The records that you are about to access may contain information from federally-assisted alcohol or drug abuse programs. If such information is present, then the following federally mandated warning applies: This information has been disclosed to you from records protected by federal confidentiality rules (42 CFR part 2). The federal rules prohibit you from making any further disclosure of this information unless further disclosure is expressly permitted by the written consent of the person to whom it pertains or as otherwise permitted by 42 CFR part 2. A general authorization for the release of medical or other information is NOT sufficient for this purpose. The Federal rules restrict any use of the information to criminally investigate or prosecute any alcohol or drug abuse patient.The records that you are about to access may contain highly sensitive health information, the redisclosure of which is protected by Article 27-F of the [facility] Public Health law. If you continue you may have access to information: Regarding HIV / AIDS; Provided by facilities licensed or operated by the [facility] Office of Mental Health; or Provided by the [facility] Office for People With Developmental Disabilities. If such information is present, then the following [facility] mandated warning applies: This information has been disclosed to you from confidential records which are protected by state law. State law prohibits you from making any further disclosure of this information without the specific written consent of the person to whom it pertains, or as otherwise permitted by law. Any unauthorized further disclosure in violation of state law may result in a fine or intermediate sentence or both. A general authorization for the release of medical or other information is NOT sufficient authorization for further disc losure. Family History Family Member Name Family Member Gender Family Member Status Date o f Status Description Data Source(s) Unknown Unknown Problem MEDENT ([facility]) Unknown Unknown Problem MEDENT ([facility] Encounters Encounter Providers Location Date Indications Data Source(s ) Unknown [address] [facility] [address] 02/21/2021 12:00:00 AM EDT eCW1 ([facility]) Unknown [address] [facility] [place] [address] 02/18/2021 12:00:00 AM EDT eCW1 ([facility]) (WC COB) WCenter Complicated OB [address] [place] [address] 02/02/2021 12:00:00 AM EDT eCW1 ([facility]) Unknown [address] [facility] [address] 01/20/2021 12:00:00 AM EDT eCW1 ([facility]) (WC COB) WCenter Complicated OB [address] [place] [address] 01/19/2021 12:00:00 AM EDT eCW1 ([facility]) Unknown [address] [facility] [address] 01/14/2021 12:00:00 AM EDT eCW1 ([facility]) (WC ESTOB) WCenter Est OB [address] [place] [address] 01/04/2021 12:00:00 AM EDT eCW1 ([facility]) (WC ESTOB) WCenter Est OB [address] [place] [address] 12/22/2020 12:00:00 AM EDT eCW1 ([facility]) (WC ESTOB) WCenter Est OB [address] [place] [address] 12/09/2020 12:00:00 AM EDT eCW1 ([facility]) (WC ESTOB) WCenter Est OB [address] [place] [address] 11/23/2020 12:00:00 AM EDT eCW1 ([facility]) (WC ESTOB) WCenter Est OB [address] [place] [address] 11/11/2020 12:00:00 AM EDT eCW1 ([facility]) (WC COB) WCenter Complicated OB [address] [place] [address] 11/04/2020 12:00:00 AM EDT eCW1 ([facility]) (WC ESTOB) WCenter Est OB [address] [place] [address] 10/20/2020 12:00:00 AM EDT eCW1 ([facility]) (WC ESTOB) WCenter Est OB [address] [place] [address] 10/06/2020 12:00:00 AM EDT eCW1 ([facility]) ( ESTOB) enter Est OB [address] [place] [address] 09/23/2020 12:00:00 AM EDT eCW1 ([facility]) ( ESTOB) enter Est OB [address] [place] [address] 09/08/2020 12:00:00 AM EDT eCW1 ([facility]) ( ESTOB) WCenter Est OB [address] [place] [address] 08/26/2020 12:00:00 AM EDT eCW1 ([facility]) Unknown [address] [facility] [place] [address] 08/20/2020 12:00:00 AM EDT eCW1 ([facility]) Unknown [address] [facility] [place] [address] 08/13/2020 12:00:00 AM EDT eCW1 ([facility]) Unknown [address] [facility] [place] [address] 08/12/2020 12:00:00 AM EDT eCW1 ([facility]) ( ESTOB) [facility] Est OB [address] [place] [address] 08/12/2020 12:00:00 AM EDT eCW1 ([facility]) Medications Medication Brand Name Start Date Product Form Dose Route Admi nistrative Instructions Pharmacy Instructions Status Indications Reaction Description Data Source(s) Insulin Syringe-Needle U-100 27G X 1/2" 0.5 ML UNK 021 12:00:00 AM EDT active Insulin Syringe-Needle U -100 27G X 1/2" 0.5 ML eCW1 ([facility]) 1 mL 30 gauge x 1/2" 02/21/2021 12:00:00 AM EDT syringe 60 USE UNDER THE SKIN TWO TIMES A DAY USE UNDER THE SKIN TWO TIMES A DAY SOLD: 02/21/2021 [facility] [facility] - 02/21/2021 12:00:00 AM EDT active [employer] - eCW1 (Pending sale to [facility]) 10,000 unit/mL 02/21/2021 12:00:00 AM EDT solution 60 INJECT 1 ML EVERY 12 HOURS DIRECTED INJECT 1 ML EVERY 12 HOURS DIRECTED SOLD: 02/21/2021 [facility] 1 ML heparin sodium, porcine 23619 UNT/M L Injection Heparin Sodium (Porcine) 69456 UNIT/ML Heparin Sodium (Porcine) 79077 UNIT/ML 02/18/2021 12:00:00 A M EDT 1.0 {ml} active Heparin Sodium (Porcine) 92037 UNIT/ML eCW1 ([facility]) 1 ML heparin sodium, porcine 57592 UNT/M L Injection Heparin Sodium (Porcine) 36178 UNIT/ML Heparin Sodium (Porcine) 52938 UNIT/ML 02/18/2021 12:00:00 A M EDT 1.0 {ml} active Heparin Sodium (Porcine) 37932 UNIT/ML eCW1 ([facility]) 875 mg 02/09/2021 12:00:00 AM EDT tablet 20 TAKE ONE TABLET BY MOUTH EVERY 12 HOURS FOR 10 DAYS TAKE ONE TABLET BY MOUTH EVERY 12 HOURS FOR 10 DAYS SO LD: 02/10/2021 [facility] 33 gauge 01/20/2021 12:00:00 AM EDT misc 100 D IRECTED FOUR TIMES A DAY DIRECTED FOUR TIMES A DAY SOLD: 01/26/2021 [facility] [employer] [facility] [employer] - 01/19/2021 12:00:00 AM EDT active [employer] - eCW1 (Pending sale to [facility]) [employer] - 01/19/2021 12:00:00 AM EDT active [employer] - eCW1 (Pending sale to [facility]) [employer] [facility] [employer] - 01/19/2021 12:00:00 AM EDT active [employer] - eCW1 (Pending sale to [facility]) ALCOHOL ANTISEPTIC PADS 01/19/2021 12:00:00 AM EDT pads, med icated 100 USE FOUR TIMES A DAY DIRECTED USE FOUR TIMES A DAY DIRECTED SOLD: 01/20/2021 [facility] [employer] [facility] [employer] - 01/19/2021 12:00:00 AM EDT active [employer] - eCW1 (Pending sale to [facility]) [employer] - 01/19/2021 12:00:00 AM EDT active [employer] - eCW1 (Pending sale to [facility]) BLOOD SUGAR DIAGNOSTIC 01/17/2021 12:00:00 AM EDT strip 100 USE DIRECTED FOUR TIMES A DAY USE DIRECTED FOUR TIMES A DAY SOLD: 01/17/2021 [facility] Cephalexin 500 MG Oral Capsule Cephalexin 500 MG 01/04/2021 12:00:0 0 AM EDT 1.0 {capsule} active Cephalexin 500 MG eCW1 ([facility]) chlorhexidine gluconate 20 MG/ML Medicat ed Liquid Soap Chlorhexidine Gluconate 2 % Chlorhexidine Gluconate 2 % 01/04/2021 12:00:00 AM EDT active Chlorhexidine Gluconate 2 % eCW1 ([facility]) Cephalexin 500 MG Oral Capsule Cephalexin 500 MG 01/04/2021 12:00:0 0 AM EDT 1.0 {capsule} active Cephalexin 500 MG eCW1 ([facility]) Cephalexin 500 MG Oral Capsule Cephalexin 500 MG 01/04/2021 12:00:0 0 AM EDT 1.0 {capsule} active Cephalexin 500 MG eCW1 ([facility]) chlorhexidine gluconate 20 MG/ML Medicat ed Liquid Soap Chlorhexidine Gluconate 2 % Chlorhexidine Gluconate 2 % 01/04/2021 12:00:00 AM EDT active Chlorhexidine Gluconate 2 % eCW1 ([facility]) chlorhexidine gluconate 20 MG/ML Medicat ed Liquid Soap Chlorhexidine Gluconate 2 % Chlorhexidine Gluconate 2 % 01/04/2021 12:00:00 AM EDT active Chlorhexidine Gluconate 2 % eCW1 ([facility]) Cephalexin 500 MG Oral Capsule Cephalexin 500 MG 01/04/2021 12:00:0 0 AM EDT 1.0 {capsule} active Cephalexin 500 MG eCW1 ([facility]) Cephalexin 500 MG Oral Capsule Cephalexin 500 MG 01/04/2021 12:00:0 0 AM EDT 1.0 {capsule} active Cephalexin 500 MG eCW1 ([facility]) Cephalexin 500 MG Oral Capsule Cephalexin 500 MG 01/04/2021 12:00:0 0 AM EDT 1.0 {capsule} active Cephalexin 500 MG eCW1 ([facility]) Cephalexin 500 MG Oral Capsule CEPHALEXIN 01/04/2021 12:00:00 AM EDT capsule 14 TAKE ONE CAPSULE BY MOUTH TWICE A DAY FOR 7 DAYS TAKE ONE CAPSULE BY MOUTH TWICE A DAY FOR 7 DAYS SOLD: 01/06/2021 [facility] chlorhexidine gluconate 20 MG/ML Medicat ed Liquid Soap Chlorhexidine Gluconate 2 % Chlorhexidine Gluconate 2 % 01/04/2021 12:00:00 AM EDT active Chlorhexidine Gluconate 2 % eCW1 ([facility]) chlorhexidine gluconate 20 MG/ML Medicat ed Liquid Soap Chlorhexidine Gluconate 2 % Chlorhexidine Gluconate 2 % 01/04/2021 12:00:00 AM EDT active Chlorhexidine Gluconate 2 % eCW1 ([facility]) chlorhexidine gluconate 20 MG/ML Medicat ed Liquid Soap Chlorhexidine Gluconate 2 % Chlorhexidine Gluconate 2 % 01/04/2021 12:00:00 AM EDT active Chlorhexidine Gluconate 2 % eCW1 ([facility]) Cephalexin 500 MG Oral Capsule Cephalexin 500 MG 01/04/2021 12:00:0 0 AM EDT 1.0 {capsule} active Cephalexin 500 MG eCW1 ([facility]) chlorhexidine gluconate 20 MG/ML Medicat ed Liquid Soap Chlorhexidine Gluconate 2 % Chlorhexidine Gluconate 2 % 01/04/2021 12:00:00 AM EDT active Chlorhexidine Gluconate 2 % eCW1 ([facility]) Omeprazole 40 MG Delayed Release Oral Capsule Omeprazole 40 MG 11/23/2020 12:00:00 AM EDT active Omeprazo le 40 MG eCW1 ([facility]) Omeprazole 40 MG Delayed Release Oral Capsule Omeprazole 40 MG 11/23/2020 12:00:00 AM EDT active Omeprazo le 40 MG eCW1 ([facility]) Omeprazole 40 MG Delayed Release Oral Capsule Omeprazole 40 MG 11/23/2020 12:00:00 AM EDT active Omeprazo le 40 MG eCW1 ([facility]) Omeprazole 40 MG Delayed Release Oral Capsule Omeprazole 40 MG 11/23/2020 12:00:00 AM EDT active Omeprazo le 40 MG eCW1 ([facility]) Omeprazole 40 MG Delayed Release Oral Capsule Omeprazole 40 MG 11/23/2020 12:00:00 AM EDT active Omeprazo le 40 MG eCW1 ([facility]) Omeprazole 40 MG Delayed Release Oral Capsule Omeprazole 40 MG 11/23/2020 12:00:00 AM EDT active Omeprazo le 40 MG eCW1 ([facility]) Omeprazole 40 MG Delayed Release Oral Capsule Omeprazole 40 MG 11/23/2020 12:00:00 AM EDT active Omeprazo le 40 MG eCW1 ([facility]) Omeprazole 40 MG Delayed Release Oral Capsule Omeprazole 40 MG 11/23/2020 12:00:00 AM EDT active Omeprazo le 40 MG eCW1 ([facility]) Omeprazole 40 MG Delayed Release Oral Capsule Omeprazole 40 MG 11/23/2020 12:00:00 AM EDT active Omeprazo le 40 MG eCW1 ([facility]) Omeprazole 40 MG Delayed Release Oral Capsule Omeprazole 40 MG 11/23/2020 12:00:00 AM EDT active Omeprazo le 40 MG eCW1 ([facility]) 33 gauge 08/21/2020 12:00:00 AM EDT misc 100 USE DIRECTED FOUR TIMES A DAY USE DIRECTED FOUR TIMES A DAY SOLD: 09/20/2020 [facility] BLOOD SUGAR DIAGNOSTIC 08/21/2020 12:00:00 AM EDT strip 100 USE DIRECTED FOUR TIMES A DAY USE DIRECTED FOUR TIMES A DAY SOLD: 11/20/2020 [facility] 33 gauge 08/21/2020 12:00:00 AM EDT misc 100 USE DIRECTED FOUR TIMES A DAY USE DIRECTED FOUR TIMES A DAY SOLD: 10/21/2020 [facility] BLOOD SUGAR DIAGNOSTIC 08/21/2020 12:00:00 AM EDT strip 100 USE DIRECTED FOUR TIMES A DAY USE DIRECTED FOUR TIMES A DAY SOLD: 10/21/2020 [facility] 33 gauge 08/21/2020 12:00:00 AM EDT misc 100 USE DIRECTED FOUR TIMES A DAY USE DIRECTED FOUR TIMES A DAY SOLD: 11/20/2020 [facility] BLOOD SUGAR DIAGNOSTIC 08/21/2020 12:00:00 AM EDT strip 100 USE DIRECTED FOUR TIMES A DAY USE DIRECTED FOUR TIMES A DAY SOLD: 09/20/2020 [facility] BLOOD-GLUCOSE METER 08/21/2020 12:00:00 AM EDT misc 1 USE DIRECTED FOUR TIMES A DAY USE DIRECTED FOUR TIMES A DAY SOLD: 08/21/2020 [facility] 33 gauge 08/21/2020 12:00:00 AM EDT misc 100 USE DIRECTED FOUR TIMES A DAY USE DIRECTED FOUR TIMES A DAY SOLD: 08/21/2020 [facility] BLOOD SUGAR DIAGNOSTIC 08/21/2020 12:00:00 AM EDT strip 100 USE DIRECTED FOUR TIMES A DAY USE DIRECTED FOUR TIMES A DAY SOLD: 08/21/2020 [facility] - Lancets - 08/20/2020 12:00:00 AM EDT act joel [facility] - eCW1 ([facility]) Test Strips - UNK 08/20/2020 12:00:00 AM EDT acti ve Test Strips - eCW1 ([facility]) Lancets - Lancets - 08/20/2020 12:00:00 AM EDT act joel Lancets - eCW1 ([facility]) Glucose Monitor - UNK 08/20/2020 12:00:00 AM EDT active Glucose Monitor - eCW1 ([facility]) Lancets - Lancets - 08/20/2020 12:00:00 AM EDT act joel Lancets - eCW1 ([facility]) Glucose Monitor - UNK 08/20/2020 12:00:00 AM EDT active Glucose Monitor - eCW1 ([facility]) Lancets - Lancets - 08/20/2020 12:00:00 AM EDT act joel Lancets - eCW1 ([facility]) Alcohol Wipes 70 % Alcohol Wipes 70 % 08/20/2020 12:00:00 AM EDT active Alcohol Wipes 70 % eCW1 (Pending sale to [facility]) Alcohol Wipes 70 % Alcohol Wipes 70 % 08/20/2020 12:00:00 AM EDT active Alcohol Wipes 70 % eCW1 (Pending sale to [facility]) Glucose Monitor - UNK 08/20/2020 12:00:00 AM EDT active Glucose Monitor - eCW1 ([facility]) Test Strips - UNK 08/20/2020 12:00:00 AM EDT acti ve Test Strips - eCW1 ([facility]) Test Strips - UNK 08/20/2020 12:00:00 AM EDT acti ve Test Strips - eCW1 ([facility]) Alcohol Wipes 70 % Alcohol Wipes 70 % 08/20/2020 12:00:00 AM EDT active Alcohol Wipes 70 % eCW1 (Pending sale to [facility]) Alcohol Wipes 70 % UNK 08/20/2020 12:00:00 AM EDT active Alcohol Wipes 70 % eCW1 ([facility]) Alcohol Wipes 70 % Alcohol Wipes 70 % 08/20/2020 12:00:00 AM EDT active Alcohol Wipes 70 % eCW1 (Pending sale to [facility]) Glucose Monitor - UNK 08/20/2020 12:00:00 AM EDT active Glucose Monitor - eCW1 ([facility]) Glucose Monitor - UNK 08/20/2020 12:00:00 AM EDT active Glucose Monitor - eCW1 ([facility]) Lancets - Lancets - 08/20/2020 12:00:00 AM EDT act joel Lancets - eCW1 ([facility]) Alcohol Wipes 70 % UNK 08/20/2020 12:00:00 AM EDT active Alcohol Wipes 70 % eCW1 ([facility]) ALCOHOL ANTISEPTIC PADS 08/20/2020 12:00:00 AM EDT pads, med icated 100 USE DIRECTED FOUR TIMES A DAY USE DIRECTED FOUR TIMES A DAY SOLD: 09/20/2020 [facility] Test Strips - UNK 08/20/2020 12:00:00 AM EDT acti ve Test Strips - eCW1 ([facility]) Glucose Monitor - UNK 08/20/2020 12:00:00 AM EDT active Glucose Monitor - eCW1 ([facility]) Lancets - Lancets - 08/20/2020 12:00:00 AM EDT act joel Lancets - eCW1 ([facility]) Glucose Monitor - UNK 08/20/2020 12:00:00 AM EDT active Glucose Monitor - eCW1 ([facility]) Test Strips - UNK 08/20/2020 12:00:00 AM EDT acti ve Test Strips - eCW1 ([facility]) Alcohol Wipes 70 % Alcohol Wipes 70 % 08/20/2020 12:00:00 AM EDT active Alcohol Wipes 70 % eCW1 (Pending sale to [facility]) ALCOHOL ANTISEPTIC PADS 08/20/2020 12:00:00 AM EDT pads, med icated 100 USE DIRECTED FOUR TIMES A DAY USE DIRECTED FOUR TIMES A DAY SOLD: 10/21/2020 [facility] - Lancets - 08/20/2020 12:00:00 AM EDT act joel Lancets - eCW1 ([facility]) Test Strips - UNK 08/20/2020 12:00:00 AM EDT acti ve Test Strips - eCW1 ([facility]) Glucose Monitor - UNK 08/20/2020 12:00:00 AM EDT active Glucose Monitor - eCW1 ([facility]) Lancets - Lancets - 08/20/2020 12:00:00 AM EDT act joel Lancets - eCW1 ([facility]) Lancets - Lancets - 08/20/2020 12:00:00 AM EDT act joel Lancets - eCW1 ([facility]) Test Strips - UNK 08/20/2020 12:00:00 AM EDT acti ve Test Strips - eCW1 ([facility]) Glucose Monitor - UNK 08/20/2020 12:00:00 AM EDT active Glucose Monitor - eCW1 ([facility]) Glucose Monitor - UNK 08/20/2020 12:00:00 AM EDT active Glucose Monitor - eCW1 ([facility]) Lancets - Lancets - 08/20/2020 12:00:00 AM EDT act joel Lancets - eCW1 ([facility]) Alcohol Wipes 70 % UNK 08/20/2020 12:00:00 AM EDT active Alcohol Wipes 70 % eCW1 ([facility]) Alcohol Wipes 70 % Alcohol Wipes 70 % 08/20/2020 12:00:00 AM EDT active Alcohol Wipes 70 % eCW1 (Pending sale to [facility]) Alcohol Wipes 70 % Alcohol Wipes 70 % 08/20/2020 12:00:00 AM EDT active Alcohol Wipes 70 % eCW1 (Pending sale to [facility]) Glucose Monitor - UNK 08/20/2020 12:00:00 AM EDT active Glucose Monitor - eCW1 ([facility]) Alcohol Wipes 70 % Alcohol Wipes 70 % 08/20/2020 12:00:00 AM EDT active Alcohol Wipes 70 % eCW1 (Pending sale to [facility]) Alcohol Wipes 70 % UNK 08/20/2020 12:00:00 AM EDT active Alcohol Wipes 70 % eCW1 ([facility]) Lancets - Lancets - 08/20/2020 12:00:00 AM EDT act joel Lancets - eCW1 ([facility]) Lancets - Lancets - 08/20/2020 12:00:00 AM EDT act joel Lancets - eCW1 ([facility]) Glucose Monitor - UNK 08/20/2020 12:00:00 AM EDT active Glucose Monitor - eCW1 ([facility]) Lancets - Lancets - 08/20/2020 12:00:00 AM EDT act joel Lancets - eCW1 ([facility]) Lancets - Lancets - 08/20/2020 12:00:00 AM EDT act joel Lancets - eCW1 ([facility]) Glucose Monitor - UNK 08/20/2020 12:00:00 AM EDT active Glucose Monitor - eCW1 ([facility]) Glucose Monitor - UNK 08/20/2020 12:00:00 AM EDT active Glucose Monitor - eCW1 ([facility]) Test Strips - UNK 08/20/2020 12:00:00 AM EDT acti ve Test Strips - eCW1 ([facility]) Test Strips - UNK 08/20/2020 12:00:00 AM EDT acti ve Test Strips - eCW1 ([facility]) Test Strips - UNK 08/20/2020 12:00:00 AM EDT acti ve Test Strips - eCW1 ([facility]) ALCOHOL ANTISEPTIC PADS 08/20/2020 12:00:00 AM EDT pads, med icated 100 USE DIRECTED FOUR TIMES A DAY USE DIRECTED FOUR TIMES A DAY SOLD: 11/20/2020 [facility] Glucose Monitor - UNK 08/20/2020 12:00:00 AM EDT active Glucose Monitor - eCW1 ([facility]) Alcohol Wipes 70 % UNK 08/20/2020 12:00:00 AM EDT active Alcohol Wipes 70 % eCW1 ([facility]) Alcohol Wipes 70 % UNK 08/20/2020 12:00:00 AM EDT active Alcohol Wipes 70 % eCW1 ([facility]) Test Strips - UNK 08/20/2020 12:00:00 AM EDT acti ve Test Strips - eCW1 ([facility]) Test Strips - UNK 08/20/2020 12:00:00 AM EDT acti ve Test Strips - eCW1 ([facility]) Test Strips - UNK 08/20/2020 12:00:00 AM EDT acti ve Test Strips - eCW1 ([facility]) Glucose Monitor - UNK 08/20/2020 12:00:00 AM EDT active Glucose Monitor - eCW1 ([facility]) Lancets - Lancets - 08/20/2020 12:00:00 AM EDT act joel Lancets - eCW1 ([facility]) Alcohol Wipes 70 % UNK 08/20/2020 12:00:00 AM EDT active Alcohol Wipes 70 % eCW1 ([facility]) Test Strips - UNK 08/20/2020 12:00:00 AM EDT acti ve Test Strips - eCW1 ([facility]) Glucose Monitor - UNK 08/20/2020 12:00:00 AM EDT active Glucose Monitor - eCW1 ([facility]) Alcohol Wipes 70 % UNK 08/20/2020 12:00:00 AM EDT active Alcohol Wipes 70 % eCW1 ([facility]) Lancets - Lancets - 08/20/2020 12:00:00 AM EDT act joel Lancets - eCW1 ([facility]) Lancets - Lancets - 08/20/2020 12:00:00 AM EDT act joel Lancets - eCW1 ([facility]) Test Strips - UNK 08/20/2020 12:00:00 AM EDT acti ve Test Strips - eCW1 ([facility]) ALCOHOL ANTISEPTIC PADS 08/20/2020 12:00:00 AM EDT pads, med icated 100 USE DIRECTED FOUR TIMES A DAY USE DIRECTED FOUR TIMES A DAY SOLD: 08/21/2020 [facility] Test Strips - UNK 08/20/2020 12:00:00 AM EDT acti ve Test Strips - eCW1 ([facility]) Lancets - Lancets - 08/20/2020 12:00:00 AM EDT act joel Lancets - eCW1 ([facility]) Alcohol Wipes 70 % Alcohol Wipes 70 % 08/20/2020 12:00:00 AM EDT active Alcohol Wipes 70 % eCW1 (Pending sale to [facility]) Glucose Monitor - UNK 08/20/2020 12:00:00 AM EDT active Glucose Monitor - eCW1 ([facility]) Test Strips - UNK 08/20/2020 12:00:00 AM EDT acti ve Test Strips - eCW1 ([facility]) Test Strips - UNK 08/20/2020 12:00:00 AM EDT acti ve Test Strips - eCW1 ([facility]) Test Strips - UNK 08/20/2020 12:00:00 AM EDT acti ve Test Strips - eCW1 ([facility]) Alcohol Wipes 70 % UNK 08/20/2020 12:00:00 AM EDT active Alcohol Wipes 70 % eCW1 ([facility]) Glucose Monitor - UNK 08/20/2020 12:00:00 AM EDT active Glucose Monitor - eCW1 ([facility]) Alcohol Wipes 70 % Alcohol Wipes 70 % 08/20/2020 12:00:00 AM EDT active Alcohol Wipes 70 % eCW1 (Pending sale to [facility]) Lancets - Lancets - 08/20/2020 12:00:00 AM EDT act joel Lancets - eCW1 ([facility]) Insurance Providers Payer name Policy type / Coverage type Policy ID Covered alliance party ID Covered alliance party's relationship to erickson Policy Erickson Plan Information [facility] [place] BLUE [id number] SP [id number] PMA W [id number] Empl [id number] PMA WC W [id number] Empl [id number] SELF PAY ONLY [id number] SP [id number] [facility] [place] [id number] SP [id number] [facility] [facility] [place] [facility] [id number] SP [id number] [facility] Community Plan Commercial [id number] Self 1 [id number] [facility] [id number] S [id number] [facility]LY [facility] [facility] [id number] SP [id number] [facility] MEDICAID [id number] S [id number] [facility] MEDICAID [id number] S [id number] [facility] MEDICAID [id number] S [id number] [facility] Health Maintenance Organization (HMO) [id number] Self 1 [id number] [facility] Health Maintenance Organization (HMO) [id number] Self 1 [id number] [facility] XIX [id number] 18 [id number] [place] [id number] Self [id number] Medicaid [place] [id number] Self [id number] [place] Medigap Part B [id number] Self [id number] [place] [id number] Self [id number] Medicaid [place] [id number] Self [id number] [facility] O [id number] S [id number] SELF PAY SP [id number] S [id number] [facility] COMM UNAVAILABLE S UNAVAILABLE [facility] FAMILY [facility] PLUS COMM HMO [id number] S [id number] [facility] Health Maintenance Organization (HMO) [id number] Self 1 [id number] [facility] Health Maintenance Organization (HMO) [id number] Self 1 [id number] [facility] Health Maintenance Organization (HMO) [id number] Self 1 [id number] [facility] Health Maintenance Organization (O) [id number] Self [id number] SELF PAY ONLY [id number] SP [id number] MEDICAID [id number] SP [id number] SELF PAY UNAVAILABLE SP UNAVAILA BLE ONE CALL CARE MANAGEMENT P [id number] S [id number] [employer] P [id number] S [id number] [id number] BLUE CROSS BLUE SHIELD-O/P [id number] [facility] [id number] SP [id number] [id number] SP [id number] [place] [id number] SP [id number] [place] [id number] SP [id number] SELF PAY ONLY [id number] SP [id number] SELF PAY ONLY - [id number] SP [id number] [facility] [id number] SP [id number] [facility]) O [id number] S [id number] Problems, Conditions, and Diagnoses Code Display Name Description Problem Type Effective Dates Data Source(s) O99.213 [id number] Obesity during third trimester, antepartu m Problem 01/05/2021 12:00:00 AM EDT eCW1 ([facility]) O24.313 [id number] Pre-existing diabete s mellitus affecting in third trimester, antepartum Problem 01/05/2021 12:00:00 AM EDT eCW1 ([facility]) O24.312 Unspecified pre-existing meghan betes mellitus in , second trimester Pre-existing diabetes mellitus during in sec ond trimester Problem 12/23/2020 12:00:00 AM EDT eCW1 ([facility]) O09.292 [id number] Prior poor obstetric al history in second trimester, antepartum Problem 12/09/2020 12:00:00 AM EDT eCW1 (Pending sale to [facility]) O99.212 Maternal obesity complicatin g , childbirth and the puerperium, antepartum Obesity complicating in second trimester Problem 10/20/2020 12:00:00 AM EDT eCW1 ([facility]) O99.212 [id number] Obesity complicating , second tr imester Problem 10/06/2020 12:00:00 AM EDT eCW1 ([facility]) O24.312 [id number] Pre-existing diabete s mellitus affecting in second trimester, antepartum Problem 10/06/2020 12:00:00 AM EDT eCW1 ([facility]) O99.211 [id number] Obesity complicating , first tri mester Problem 09/08/2020 12:00:00 AM EDT eCW1 ([facility]) O24.311 [id number] Pre-existing diabete s mellitus affecting in first trimester, antepartum Problem 09/08/2020 12:00:00 AM EDT eCW1 ([facility]) O24.319 Diabetes mellitus in mother complicating , childbirth AND/OR puerperium Pregestational diabetes mellitus, modified White class B Pro blem 08/20/2020 12:00:00 AM EDT eCW1 ([facility]) O99.211 Obesity complicating , first tr imester Obesity complicating in first trimester Problem 08/12/2020 12:00:00 AM EDT eCW1 ([facility]) Z34.80 care Supervision of other normal P roblem 08/11/2020 12:00:00 AM EDT eCW1 ([facility]) Surgeries/Procedures No Information Results ID Date Data Source [id number] 02/13/2021 07:52:00 AM EDT [facility] Name Value Range Interpretation Code Description Data Crystal rce(s) Supporting Document(s) Respiratory pathogens identified [Type] in Nasopharynx by Probe and target amplification method SARS-CoV-2 (COVID 19) [facility] [place] This lab was ordered by [facility] a nd reported by [facility]. ID Date Data Source [id number] 02/11/2021 05:08:00 AM EDT [facility] Name Value Range Interpretation Code Description Data Crystal rce(s) Supporting Document(s) SARS coronavirus 2 RNA [Presence] in Res piratory specimen by MARTHA with probe detection POSITIVE [facility] This lab was ordered by [facility] a nd reported by [facility]. ID Date Data Source [id number] 02/09/2021 12:00:00 AM EDT [facility] Name Value Range Interpretation Code Description Data Crystal rce(s) Supporting Document(s) SARS-CoV2 Rapid Antigen Positive [facility] lab [facility] and reported by [facility]. ID Date Data Source WWBC OBS COMPLETE US 10/29/2020 12:00:00 AM EDT eCW1 ([facility]) Name Value Range Interpretation Code Description Data Crystal rce(s) Supporting Document(s) WWBC OBS COMPLETE US eCW1 ([facility]) ID Date Data Source TOTAL PROTEIN,RANDOM URINE 08/13/2020 12:00:00 AM EDT eCW1 ( [facility]) Name Value Range Interpretation Code Description Data Crystal rce(s) Supporting Document(s) 22.1 0.0-12.0 eCW1 ([facility], [facility]) ID Date Data Source HBSAG 08/13/2020 12:00:00 AM EDT eCW1 ([facility]ending sale to [facility]) Name Value Range Interpretation Code Description Data Crystal rce(s) Supporting Document(s) NEGATIVE NEGATIVE eCW1 ([facility], [facility]) ID Date Data Source CREATININE,RANDOM URINE 08/13/2020 12:00:00 AM EDT eCW1 ([facility]) Name Value Range Interpretation Code Description Data Crystal rce(s) Supporting Document(s) 240.0 eCW1 ([facility], [facility]) ID Date Data Source Pre Eclampsia Profile 08/13/2020 12:00:00 AM EDT eCW1 ([facility]) Name Value Range Interpretation Code Description Data Crystal rce(s) Supporting Document(s) 0.60 0.55-1.30 eCW1 ([facility], [facility]) 19 12-78 eCW1 ([facility], [facility]) 6 7-37 eCW1 ([facility], [facility]) > 60.0 >60 eCW1 ([facility], [facility]) 3.0 2.6-6.0 eCW1 ([facility], [facility]) 0.1 0.2-1.0 eCW1 ([facility], [facility]) 122 84-246 eCW1 ([facility], [facility]) ID Date Data Source [id number] 08/13/2020 12:00:00 AM EDT eCW1 ([facility]ending sale to [facility]) Name Value Range Interpretation Code Description Data Crystal rce(s) Supporting Document(s) Hemoglobin A1c/Hemoglobin.total in Blood 5.6 eCW1 ([facility]) ID Date Data Source RUBELLA IMMUNE STATUS IgG 08/13/2020 12:00:00 AM EDT eCW1 ([facility]) Name Value Range Interpretation Code Description Data Crystal rce(s) Supporting Document(s) IMMUNE IMMUNE eCW1 ([facility]) ID Date Data Source SYPHILIS ANTIBODY (RPR SCREEN) 08/13/2020 12:00:00 AM EDT eC W1 ([facility]) Name Value Range Interpretation Code Description Data Crystal rce(s) Supporting Document(s) NONREACTIVE NONREACTIVE eCW1 ([facility]) ID Date Data Source [id number] 08/13/2020 12:00:00 AM EDT eCW1 ([facility]ending sale to [facility]) Name Value Range Interpretation Code Description Data Crystal rce(s) Supporting Document(s) eCW1 ([facility], [facility]) ID Date Data Source HEPATITIS C ANTIBODY INDEX 08/13/2020 12:00:00 AM EDT eCW1 ( [facility]) Name Value Range Interpretation Code Description Data Crystal rce(s) Supporting Document(s) 0.1 <0.8 eCW1 ([facility], [facility]) ID Date Data Source CBC - Complete Blood Count 08/13/2020 12:00:00 AM EDT eCW1 ( [facility]) Name Value Range Interpretation Code Description Data Crystal rce(s) Supporting Document(s) 9.0 4.0-10.0 eCW1 ([facility], [facility]) 40.0 36.0-47.0 eCW1 ([facility], [facility]) 4.73 4.00-5.40 eCW1 ([facility], [facility]) 12.9 12.0-15.5 eCW1 ([facility], [facility]) 14.3 11.5-14.5 eCW1 ([facility], [facility]) 84.6 80.0-96.0 eCW1 ([facility], [facility]) 32.3 32.0-36.5 eCW1 ([facility], [facility]) 27.3 27.0-33.0 eCW1 ([facility], [facility]) 340 150-450 eCW1 ([facility], [facility]) ID Date Data Source Type and Screen Prenatal1 08/13/2020 12:00:00 AM EDT eCW1 ([facility]) Name Value Range Interpretation Code Description Data Crystal rce(s) Supporting Document(s) NEGATIVE eCW1 ([facility], [facility]) Procedure Social History Code Duration Value Status Description Data Source(s ) Smoking 02/21/2021 12:00:00 AM EDT Former Smoker completed Former Smoker eCW1 ([facility]) Smoking 02/16/2021 12:00:00 AM EDT Former Smoker completed Former Smoker eCW1 ([facility]) Smoking 02/16/2021 12:00:00 AM EDT Former Smoker completed Former Smoker eCW1 ([facility]) Smoking 01/27/2021 12:00:00 AM EDT Former Smoker completed Former Smoker eCW1 ([facility]) Smoking 01/19/2021 12:00:00 AM EDT Former Smoker completed Former Smoker eCW1 ([facility]) Smoking 01/11/2021 12:00:00 AM EDT Former Smoker completed Former Smoker eCW1 ([facility]) Smoking 01/04/2021 12:00:00 AM EDT Former Smoker completed Former Smoker eCW1 ([facility]) Smoking 12/22/2020 12:00:00 AM EDT Former Smoker completed Former Smoker eCW1 ([facility]) Smoking 12/08/2020 12:00:00 AM EDT Former Smoker completed Former Smoker eCW1 ([facility]) Smoking 11/22/2020 12:00:00 AM EDT Former Smoker completed Former Smoker eCW1 ([facility]) Smoking 11/03/2020 12:00:00 AM EDT Former Smoker completed Former Smoker eCW1 ([facility]) Smoking 11/03/2020 12:00:00 AM EDT Former Smoker completed Former Smoker eCW1 ([facility]) Smoking 11/03/2020 12:00:00 AM EDT Former Smoker completed Former Smoker eCW1 ([facility]) Smoking 11/03/2020 12:00:00 AM EDT Former Smoker completed Former Smoker eCW1 ([facility]) Smoking 10/19/2020 12:00:00 AM EDT Former Smoker completed Former Smoker eCW1 ([facility]) Smoking 09/22/2020 12:00:00 AM EDT Former Smoker completed Former Smoker eCW1 ([facility]) Smoking 09/08/2020 12:00:00 AM EDT Former Smoker completed Former Smoker eCW1 ([facility]) Smoking 08/26/2020 12:00:00 AM EDT Former Smoker completed Former Smoker eCW1 ([facility]) Smoking 08/12/2020 12:00:00 AM EDT Former Smoker completed Former Smoker eCW1 ([facility]) Smoking 08/12/2020 12:00:00 AM EDT Former Smoker completed Former Smoker eCW1 ([facility]) Smoking 08/12/2020 12:00:00 AM EDT Former Smoker completed Former Smoker eCW1 ([facility]) Vital Signs ID Date Data Source UNK Name Value Range Interpretation Code Description Data Source(s) Body weight 300.8 [lb_av] 300.8 [lb_av] eCW1 ([facility]) Body height 63 [in_i] 63 [in_i] eCW1 ([facility]ending sale to [facility]) Body mass index (BMI) [Ratio] 53.284 kg/m2 53.2 84 kg/m2 eCW1 ([facility]) Systolic blood pressure 116 mm[Hg] 116 mm[Hg] e CW1 ([facility]) Diastolic blood pressure 74 mm[Hg] 74 mm[Hg] eCW1 ([facility]) Body weight 298 [lb_av] 298 [lb_av] eCW1 ([facility]) Body weight 135.17 kg 135.17 kg eCW1 (Pending sale to [facility]) Body height 63 [in_i] 63 [in_i] eCW1 (Pending sale to [facility]) Body mass index (BMI) [Ratio] 52.788 kg/m2 52.7 88 kg/m2 eCW1 ([facility]) Systolic blood pressure 112 mm[Hg] 112 mm[Hg] e CW1 ([facility]) Diastolic blood pressure 70 mm[Hg] 70 mm[Hg] eCW1 ([facility]) Body weight 293 [lb_av] 293 [lb_av] eCW1 ([facility]) Body weight 132.9 kg 132.9 kg eCW1 (Pending sale to [facility]) Body height 63 [in_i] 63 [in_i] eCW1 (Pending sale to [facility]) Body mass index (BMI) [Ratio] 51.903 kg/m2 51.9 03 kg/m2 eCW1 ([facility]) Systolic blood pressure 112 mm[Hg] 112 mm[Hg] e CW1 ([facility]) Diastolic blood pressure 74 mm[Hg] 74 mm[Hg] eCW1 ([facility]) Body weight 290 [lb_av] 290 [lb_av] eCW1 ([facility]) Body weight 131.54 kg 131.54 kg eCW1 (Pending sale to [facility]) Body height 63 [in_i] 63 [in_i] eCW1 (Pending sale to [facility]) Body mass index (BMI) [Ratio] 51.371 kg/m2 51.3 71 kg/m2 eCW1 ([facility]) Systolic blood pressure 110 mm[Hg] 110 mm[Hg] e CW1 ([facility]) Diastolic blood pressure 72 mm[Hg] 72 mm[Hg] eCW1 ([facility]) Body weight 288 [lb_av] 288 [lb_av] eCW1 ([facility]) Diastolic blood pressure 70 mm[Hg] 70 mm[Hg] eCW1 ([facility]) Body weight 130.63 kg 130.63 kg eCW1 (Pending sale to [facility]) Body height 63 [in_i] 63 [in_i] eCW1 (Pending sale to [facility]) Body mass index (BMI) [Ratio] 51.017 kg/m2 51.0 17 kg/m2 eCW1 ([facility]) Systolic blood pressure 108 mm[Hg] 108 mm[Hg] e CW1 ([facility]) Body weight 284.2 [lb_av] 284.2 [lb_av] eCW1 ([facility]) Body height 63 [in_i] 63 [in_i] eCW1 (Pending sale to [facility]) Body mass index (BMI) [Ratio] 50.344 kg/m2 50.3 44 kg/m2 eCW1 ([facility]) Systolic blood pressure 112 mm[Hg] 112 mm[Hg] e CW1 ([facility]) Diastolic blood pressure 74 mm[Hg] 74 mm[Hg] eCW1 ([facility]) Body weight 281 [lb_av] 281 [lb_av] eCW1 ([facility]) Body height 63 [in_i] 63 [in_i] eCW1 (Pending sale to [facility]) Body mass index (BMI) [Ratio] 49.777 kg/m2 49.7 77 kg/m2 eCW1 ([facility]) Systolic blood pressure 122 mm[Hg] 122 mm[Hg] e CW1 ([facility]) Diastolic blood pressure 68 mm[Hg] 68 mm[Hg] eCW1 ([facility]) Body weight 281 [lb_av] 281 [lb_av] eCW1 ([facility]) Body height 63 [in_i] 63 [in_i] eCW1 (Pending sale to [facility]) Body mass index (BMI) [Ratio] 49.777 kg/m2 49.7 77 kg/m2 eCW1 ([facility]) Systolic blood pressure 108 mm[Hg] 108 mm[Hg] e CW1 ([facility]) Diastolic blood pressure 72 mm[Hg] 72 mm[Hg] eCW1 ([facility]) Body weight 275.8 [lb_av] 275.8 [lb_av] eCW1 ([facility]) Body weight 125.1 kg 125.1 kg eCW1 (Pending sale to [facility]) Body height 63 [in_i] 63 [in_i] eCW1 (Pending sale to [facility]) Body mass index (BMI) [Ratio] 48.856 kg/m2 48.8 56 kg/m2 eCW1 ([facility]) Systolic blood pressure 118 mm[Hg] 118 mm[Hg] e CW1 ([facility]) Diastolic blood pressure 76 mm[Hg] 76 mm[Hg] eCW1 ([facility]) Body weight 277.6 [lb_av] 277.6 [lb_av] eCW1 ([facility]) Body height 63 [in_i] 63 [in_i] eCW1 (Pending sale to [facility]) Body mass index (BMI) [Ratio] 49.175 kg/m2 49.1 75 kg/m2 eCW1 ([facility]) Systolic blood pressure 118 mm[Hg] 118 mm[Hg] e CW1 ([facility]) Diastolic blood pressure 70 mm[Hg] 70 mm[Hg] eCW1 ([facility]) Body weight 275.2 [lb_av] 275.2 [lb_av] eCW1 ([facility]) Body weight 124.83 kg 124.83 kg eCW1 ([facility]ending [facility] to [facility]) Body height 63 [in_i] 63 [in_i] eCW1 ([facility]ending [facility] to [facility]) Body mass index (BMI) [Ratio] 48.749 kg/m2 48.7 49 kg/m2 eCW1 ([facility]) Systolic blood pressure 116 mm[Hg] 116 mm[Hg] e CW1 ([facility]) Diastolic blood pressure 68 mm[Hg] 68 mm[Hg] eCW1 ([facility]) Body weight 274.4 [lb_av] 274.4 [lb_av] eCW1 ([facility]) Body weight 124.47 kg 124.47 kg eCW1 ([facility]ending [facility] to [facility]) Body height 63 [in_i] 63 [in_i] eCW1 (Pending sale to [facility]) Body mass index (BMI) [Ratio] 48.608 kg/m2 48.6 08 kg/m2 eCW1 ([facility]) Systolic blood pressure 100 mm[Hg] 100 mm[Hg] e CW1 ([facility]) Diastolic blood pressure 68 mm[Hg] 68 mm[Hg] eCW1 ([facility]) Body mass index (BMI) [Ratio] 48.749 kg/m2 48.7 49 kg/m2 eCW1 ([facility]) Body weight 275.2 [lb_av] 275.2 [lb_av] eCW1 ([facility]) Body weight 124.83 kg 124.83 kg eCW1 ([facility]ending [facility] to [facility]) Body height 63 [in_i] 63 [in_i] eCW1 (Pending sale to [facility]) Systolic blood pressure 120 mm[Hg] 120 mm[Hg] e CW1 ([facility]) Diastolic blood pressure 80 mm[Hg] 80 mm[Hg] eCW1 ([facility]) Body weight 276.0 [lb_av] 276.0 [lb_av] eCW1 ([facility]) Body weight 125.19 kg 125.19 kg eCW1 ([facility]ending [facility] to [facility]) Body height 63 [in_i] 63 [in_i] eCW1 (Pending sale to [facility]) Body mass index (BMI) [Ratio] 48.891 kg/m2 48.8 91 kg/m2 eCW1 ([facility]) Systolic blood pressure 126 mm[Hg] 126 mm[Hg] e CW1 ([facility]) Diastolic blood pressure 78 mm[Hg] 78 mm[Hg] eCW1 ([facility]) Patient Treatment Plan of Care Planned Activity Planned Date Details Description Data Source (s) Insulin Syringe-Needle U-100 27G X 1/2" 0.5 ML 02/21/2021 12:00:00 AM EDT eCW1 ([facility]) [employer] - 02/21/2021 12:00:00 AM EDT eCW1 ([facility]) 1 ML heparin sodium, porcine [id number] UNT/ML Injection 02/19/20 12:00:00 AM EDT eCW1 ([facility]) 1 ML heparin sodium, porcine [id number] UNT/ML Injection 02/19/20 12:00:00 AM EDT eCW1 ([facility]) [employer] - 01/19/2021 12:00:00 AM EDT eCW1 ([facility]) chlorhexidine gluconate 20 MG/ML Medicated Liquid Soap 01/04/2021 12:00:00 AM EDT eCW1 ([facility], [facility]) Cephalexin 500 MG Oral Capsule 01/04/2021 12:00:00 AM EDT eCW1 ([facility]) chlorhexidine gluconate 20 MG/ML Medicated Liquid Soap 01/04/2021 12:00:00 AM EDT eCW1 ([facility], [facility]) Cephalexin 500 MG Oral Capsule 01/04/2021 12:00:00 AM EDT eCW1 ([facility]) Omeprazole 40 MG Delayed Release Oral Capsule 11/23/2020 12:00:00 A M EDT eCW1 ([facility]) Lancets - 08/20/2020 12:00:00 AM EDT e CW1 ([facility]) Alcohol Wipes 70 % 08/20/2020 12:00:00 AM EDT eCW1 ([facility]) Test Strips - 08/20/2020 12:00:00 AM EDT eCW1 ([facility]) Glucose Monitor - 08/20/2020 12:00:00 AM EDT eCW1 ([facility]) Test Strips - 08/20/2020 12:00:00 AM EDT eCW1 ([facility]) Lancets - 08/20/2020 12:00:00 AM EDT e CW1 ([facility]) Alcohol Wipes 70 % 08/20/2020 12:00:00 AM EDT eCW1 ([facility])
--- NOTE | 2021-02-25 13:11 | HPEPDOC ---
Obstetrical History & Physical General Date of Admission February 25, 2021 History of Present Illness Chief Complaint: Other (Oligohydramnios, BPP 4/8) Age: 35 : 5 Term: 1 Pre-term: 0 Abortions: 3 Livin Dating Final EDC by: LMP EGA at Admission: 36 (+2) Antepartum Course Pre- weight (lbs.): 276 Admission Weight (lbs.): 285 Past Medical History Past Obstetrical History : Past Obstetrical History: Primgravida (2003) Type of Delivery: Spontaneous Vaginal Del. Sex of Infant: Female (9#4) Complications: Yes (meconium, 4th degree laceration) IMMUNOPATHOLOGIST History: Spontaneous Past Medical History Medical History Presumed pregestational diabetes Obesity, PCOS COVID pneumonia @ 34 wks gestation Surgical History: Gallbladder, Other (knee) Family History Significant Family History: Heart disease, Hypertension Social History Marital Status: Family situation: Spouse/partner home Psychosocial History: No pertinent psych hx * Smoker: former Smoker Alcohol: Denies Drugs: denies Allergies Coded Allergies: latex (Verified Allergy, Unknown, RASH, 02/23/21) Medications Scheduled Heparin Sodium,Porcine/Pf (Heparin 20 Units/2 ml (10/ml)) 10 Unit/1 Ml Syringe, 10 UNIT SC BID No122/Iron/Folic Acid ( Multi Tablet) 1 Each Tablet, 1 TAB PO DAILY Scheduled PRN Calcium Carbonate (Tums) 300 Mg Tab.chew, 1 TAB PO PRN PRN for HEARTBURN Physical Examination Physical Examination GENERAL: Alert and oriented times three. BREAST: . ABDOMEN: Gravid and non-tender to touch. FETUS: Is vertex (VTX) by sterile vaginal examination (SVE), fetus is vertex (VTX) by Mark. EFW by sono today 2750gm, 6#0oz HEART RATE: Regular rate and rhythm. LUNGS: Clear to auscultation (CTA). EXTREMITIES: No edema. No clonus. Deep tendon reflexes (DTRs) + 2. Pertinent Laboratoy Data Blood Type: O+ RBC Antibody Screen: Negative HIV: Negative Hepatitis B: Negative Hepatitis C: Negative Rapid Plasma Reagin: Nonreactive Rubella: Immune Chlamydia/Gonorrhea: Negative Group B Streptococcus: Unknown Diag/Inter Therapy Panorama low risk female Anatomy Ultrasound Ultrasound Date: Oct 29, 2020 Placenta Location: Anterior Normal Anatomy: Yes Placenta Previa: No Estimated Weight (grams): 266 (28%) Other Ultrasounds 08/12/2020 dating 7w5d 02/11/2021 BPP 8/8, LUIS 17.1 02/25/2021 BPP 4/8, LUIS 4.6, EFW 2750gm, 37%, cephalic Steroid Therapy Steroid Therapy: Yes Reason COVID + @ 34wks Vaginal Examination Dilation: None (deferred, planned section) Assessment Heart Rate (FHR): 155 Variability: Moderate Accelerations: Positive Decelerations: Variable, Intermittent Tocometer Contractions: No Assessment/Plan Assessment Alexus is a 35-year-old (G)5 para (P)1-0-3-1 at 36+2 weeks by 7-week ultrasound. Presents to Labor and Delivery (L&D) from ultrasound due to oligo hydramnios and BPP 4/8. History significant for recent admission due to COVID pneumonia, recovered, Beta complete. has been further complicated by presumed pregestational diabetes with sporadic use of metformin; obesity and history 4th degree laceration. Last dose of heparin was 02/24, evening. Last ate around 11:00 today. Denies LOF, bleeding or regular UC. Plan Admit and orient. Keysmith and consent per consult Dr Lopez Diet: npo. Group B Streptococcus (GBS) unknown. Labs and intravenous (IV) per unit protocol. Counseled on section Lactated Ringers (LR): Bolus 500 mL, then at 125 mL/hr. Dr Lopez aware of patient status. Delivery status to be determined Aparna Blum CNM Feb 25, 2021 13:11
[2021-02-25] MEDS ORDERED: INSULIN IV RATE CHANGE DOCUMENTATION ML/HR XX SCH (13:30)
[2021-02-25] MEDS: NS 1,000 ML IV SCH ×2 (13:41→18:42)
[2021-02-25] MEDS: INSULIN REGULAR IN 0.9 % NACL 100 UNIT in IV 1 EA IV SCH ×10 (13:55→17:58)
[2021-02-25 14:00] LABS: HEMATOCRIT 32.3 % (36.0-47.0); HEMOGLOBIN 10.5 g/dl (12.0-15.5); MEAN CORPUSCULAR HEMOGLOBIN 26.9 pg (27.0-33.0); MEAN CORPUSCULAR HGB CONC 32.5 g/dl (32.0-36.5); MEAN CORPUSCULAR VOLUME 82.8 fl (80.0-96.0); PLATELET COUNT, AUTOMATED 239 10^3/uL (150-450)
[2021-02-25 14:34] LABS: HEMOGLOBIN A1c 7.1 %
[2021-02-25 14:35] LABS: ALBUMIN 2.1 GM/DL (3.2-5.2); ALT/SGPT 60 U/L (12-78); BILIRUBIN,TOTAL 0.2 MG/DL (0.2-1.0); BLOOD UREA NITROGEN 12 MG/DL (7-18); CALCIUM LEVEL 8.6 MG/DL (8.5-10.1); CARBON DIOXIDE LEVEL 21 MEQ/L (21-32); CHLORIDE LEVEL 105 MEQ/L (98-107); CREATININE FOR GFR 0.78 MG/DL (0.55-1.30); GLOMERULAR FILTRATION RATE > 60.0 (>60); GLUCOSE, FASTING 320 MG/DL (70-100); LDH LACTATE DEHYDROGENASE 190 U/L (84-246); POTASSIUM SERUM 3.9 MEQ/L (3.5-5.1); SODIUM LEVEL 134 MEQ/L (136-145); TOTAL PROTEIN 6.3 GM/DL (6.4-8.2); URIC ACID 3.5 MG/DL (2.6-6.0)
[2021-02-25 19:07] LABS: TOTAL PROTEIN,RANDOM URINE 37.8 MG/DL (0.0-12.0)
[2021-02-25] MEDS ORDERED: NALBUPHINE HCL 10 MG/ML AMP (J2300) IV PRN (20:00)
[2021-02-25] MEDS ORDERED: METOCLOPRAMIDE INJ 10MG/2ML VIAL (J2765 PER 1) IV PRN ×2 (20:00→21:45)
[2021-02-25] MEDS ORDERED: NALOXONE INJ 0.4MG/1ML VIAL (J2310 PER 1MG) IV PRN ×2 (20:00)
[2021-02-25] MEDS ORDERED: diphenhydrAMINE 50MG/ML VIAL (J1200) IV PRN (20:00)
[2021-02-25] MEDS ORDERED: ONDANSETRON 4MG/2ML VIAL IV PRN ×3 (20:00→21:45)
[2021-02-25] MEDS ORDERED: ePHEDrine SULFATE 25 MG/5 ML(5MG/ML) SYRINGE As Ordered ONE (20:24)
[2021-02-25] MEDS ORDERED: OXYTOCIN 30 UNITS IN 0.9% NaCl 500ML IV BAG (J2590) As Ordered ONE ×2 (20:24→21:49)
[2021-02-25] MEDS ORDERED: MORPHINE PRES-FREE INJ 10 MG/10 ML VIAL (J2274) As Ordered ONE (20:24)
[2021-02-25] MEDS ORDERED: PHENYLephrine 500MCG 5ML (100MCG/ML) SYRINGE As Ordered ONE (20:24)
[2021-02-25] MEDS ORDERED: KETOROLAC 60MG 2ML VIAL As Ordered ONE (20:58)
[2021-02-25] MEDS ORDERED: ONDANSETRON 4MG/2ML VIAL As Ordered ONE (20:58)
[2021-02-25 21:04] LABS: CORD GAS ABE V -3.1; CORD GAS HCO3 V 22.2 MEQ/L; CORD GAS O2 SAT V 62.1 %; CORD GAS PCO2 V 40.5 mmHg; CORD GAS PH V 7.356 UNITS; CORD GAS PO2 V 22.2 mmHg; CORD GAS TCO2 V 23.4 MEQ/L
[2021-02-25 21:06] LABS: CORD GAS ABE A -2.5; CORD GAS HCO3 A 25.9 MEQ/L; CORD GAS O2 SAT A 17.1 %; CORD GAS PCO2 A 59.4 mmHg; CORD GAS PH A 7.257 UNITS; CORD GAS PO2 A 10.4 mmHg; CORD GAS SBC A 20.3 MEQ/L; CORD GAS TCO2 A 27.7 MEQ/L
[2021-02-25] MEDS ORDERED: OXYTOCIN DRIP 30 UNITS in IV 1 EA IV SCH (21:45)
[2021-02-25] MEDS ORDERED: MEPERIDINE INJ 25 MG/ML VIAL (J2175) IV PRN (21:45)
[2021-02-25] MEDS: LR 1,000 ML IV SCH (21:45)
[2021-02-25] MEDS ORDERED: RHOGAM 300 MCG (1500 IU) INJ (J2790) IM SCH (21:45)
[2021-02-25] MEDS ORDERED: fentaNYL 100 MCG/2 ML INJECTION (J3010) IV PRN (21:45)
[2021-02-25] MEDS ORDERED: PERCOCET 5MG/325MG TAB PO PRN ×2 (21:45)
[2021-02-25] MEDS ORDERED: MEASLES,MUMPS,RUBELLA VACCINE INJ (MMR-II) (90707) SC SCH (21:45)
--- NOTE | 2021-02-25 21:50 | ROOPDOC ---
[facility] Report Of Operation Report of Operation DATE OF PROCEDURE: 02/25/21 Report of operation Preoperative diagnosis: 36 2/7 weeks, type 2 diabetes, biophysical profile 4 out of 8, Covid positive, recurrent heart rate decelerations Postoperative diagnosis: Same Procedure: Primary low transverse section and bilateral tubal ligation. Surgeon: Osiris Couch M.D. Asst.: Jamil Shannon MD EBL: 500 ml. Urine output: 100 mL's. Findings: 6 lbs. 9 oz. female infant, 's 9 and 9 g normal uterus, fallopian tubes, ovaries. Moderate meconium stained fluid present. Operative summary: Patient taken to the operating room where spinal anesthesia was induced. She was prepped and draped in a sterile fashion in the supine position. A Ballard catheter was placed. A Pfannenstiel skin incision was made with scalpel. Fascia was incised and extended bilaterally. The fascia was dissected off the rectus muscles. The peritoneal cavity was entered. A Mobius retractor was placed. A bladder flap was created. A curvilinear incision was made in lower uterine segment until meconium stained fluid was noted. The incision was extended manually. The was delivered from the vertex position without difficulty. Cord was doubly clamped and cut. The was handed to awaiting learning officer. The placenta was expressed. Uterus was closed with O-Vicryl in a running locked fashion. A second imbricating layer of Vicryl was placed. Attention was turned to the fallopian tubes. A [place] clamp was used to grasp the fallopian tubes at the midportion. A window was created in the broad ligament free tie of 2-0 chromic was placed around the segment of tube on either side of the clamp. A Segment of tube was excised bilaterally and sent to pathology. Peritoneum was closed with 2-0 Vicryl a running fashion. Fascia was closed with 0 Vicryl in running fashion. Skin was closed 4-0 Monocryl subcuticular sutures. Sponge, instrument and needle counts were correct. Jamil Shannon MD, assisted with all aspects of the procedure. He helped close each layer of the incision and deliver the fetus. OSIRIS COUCH MD Feb 25, 2021 21:50
[2021-02-26] VITALS (8 sets, daily range): BP systolic 88–111; BP diastolic 41–59
[2021-02-26] MEDS: KETOROLAC 30 MG/ML 1ML VIAL IV SCH ×3 (02:32→15:11)
[2021-02-26] MEDS: LR 1,000 ML IV SCH (05:39)
[2021-02-26 06:38] LABS: HEMATOCRIT 29.3 % (36.0-47.0); HEMOGLOBIN 9.3 g/dl (12.0-15.5); MEAN CORPUSCULAR HEMOGLOBIN 26.3 pg (27.0-33.0); MEAN CORPUSCULAR HGB CONC 31.7 g/dl (32.0-36.5); PLATELET COUNT, AUTOMATED 186 10^3/uL (150-450); RED BLOOD COUNT 3.53 10^6/uL (4.00-5.40); WHITE BLOOD COUNT 10.4 10^3/uL (4.0-10.0)
[2021-02-26] MEDS: PRENATAL VITAMINS CHEWABLE TABLET PO SCH (09:33)
--- NOTE | 2021-02-26 10:25 | IPNPDOC ---
Text Note Date of Service The patient was seen on 02/26/21. NOTE S: No complaints. Able to get out of bed O: AVSS NAD Abd: NT, dressing C/D/I ext: NT A/P 35 yo POD#1 s/p and BTL Routine post op care VS,Fishbone, I+O VS, Fishbone, I+O Laboratory Tests 02/25/21 13:37 02/25/21 13:38 02/26/21 06:11 Vital Signs Date Time Temp Pulse Resp B/P (MAP) Pulse Ox O2 Delivery O2 Flow Rate FiO2 02/26/21 05:56 96.8 68 18 88/42 (57) 97 Room Air I&O- Last 24 Hours up to 6 AM 02/26/21 06:00 Intake Total 3578 ml Output Total 2525 ml Balance 1053 ml OSIRIS COUCH MD Feb 26, 2021 10:25
[2021-02-26] MEDS: IBUPROFEN 800 MG TAB PO SCH (22:55)
[2021-02-27] MEDS: PERCOCET 5MG/325MG TAB PO PRN ×3 (03:56→19:44)
[2021-02-27 06:00] VITALS: BP 94/53
[2021-02-27] MEDS: IBUPROFEN 800 MG TAB PO SCH ×3 (07:17→23:17)
[2021-02-27] MEDS: DOCUSATE SODIUM 100MG CAPSULE PO PRN ×2 (08:30→19:44)
[2021-02-27] MEDS: SIMETHICONE 80MG CHEW TAB PO PRN ×2 (08:30→15:59)
[2021-02-27] MEDS: PRENATAL VITAMINS CHEWABLE TABLET PO SCH (08:30)
--- NOTE | 2021-02-27 08:54 | IPNPDOC ---
Text Note Date of Service The patient was seen on 02/27/21. NOTE S: C/o incisional pain. tolerating regular diet. O: AVSS NAD Abd: NT, dressing c/d/i ext: NT A/P 35 yo PPD#2 s/p section Continue post op care check random blood glucose today VS,Fishbone, I+O VS, Fishbone, I+O Vital Signs Date Time Temp Pulse Resp B/P (MAP) Pulse Ox O2 Delivery O2 Flow Rate FiO2 02/27/21 08:31 18 02/27/21 06:00 97.9 80 94/53 (67) 02/26/21 18:27 98 Room Air I&O- Last 24 Hours up to 6 AM 02/27/21 05:59 Intake Total 1350 ml Output Total 1525 ml Balance -175 ml OSIRIS COUCH MD Feb 27, 2021 08:54
[2021-02-27] MEDS ORDERED: IBUP80TA PO (08:55)
[2021-02-27] MEDS ORDERED: OXYC1TAB23 PO (08:56)
[2021-02-27 18:06] VITALS: BP 116/58
[2021-02-28 06:00] VITALS: BP 119/57
[2021-02-28] MEDS: IBUPROFEN 800 MG TAB PO SCH (06:35)
--- NOTE | 2021-02-28 07:48 | DS.PDOC ---
Discharge Summary General Date of Admission Feb 25, 2021 at 12:57 Date of Discharge February 282020 Discharge Summary PROCEDURES PERFORMED DURING STAY: section and bilateral tubal sterilization. ADMITTING DIAGNOSES: 1. 36-2/7 weeks gestation, oligohydramnios, biophysical profile 4 out of 8, nonreassuring heart rate tracing, type 2 diabetes. DISCHARGE DIAGNOSES: 1. Delivered. COMPLICATIONS/CHIEF COMPLAINT: Labor Check, Monitoring. HISTORY OF PRESENT ILLNESS: 35-year-old 5 para 1-0-3-1 female at 36-2/7 weeks gestation sent to the hospital from the office after imaging showed oligohydramnios as well as biophysical profile of 4 out of 8. Patient is a history of type 2 diabetes which was not optimally controlled. She been planning section for delivery due to history of fourth degree laceration at her prior vaginal delivery. heart rate monitoring was not always reassuring during her course in the hospital. There was episodes of heart rate decelerations noted throughout.. HOSPITAL COURSE: 35-year-old 5 para 1-0-3-1 female at 36-2/7 weeks gestation sent to the hospital from the office after imaging showed oligohy dramnios as well as biophysical profile of 4 out of 8. Patient is a history of type 2 diabetes which was not optimally controlled. She been planning section for delivery due to history of fourth degree laceration at her prior vaginal delivery. heart rate monitoring was not always reassuring during her course in the hospital. There was episodes of heart rate decelerations noted throughout. February 25, 2021 the patient underwent primary section and bilateral tubal sterilization without complication. Her postoperative course was unremarkable. She had active return of bladder bowel function. Her pain was adequately managed. She was deemed stable for discharge on postop day #3. The baby did not go to the NICU. DISCHARGE MEDICATIONS: Please see below. ALLERGIES: Please see below. PHYSICAL EXAMINATION ON DISCHARGE: VITAL SIGNS: Please see below. GENERAL: NAD HEENT: NCAT CARDIOVASCULAR EXAMINATION: RRR RESPIRATORY EXAMINATION: CTA ABDOMINAL EXAMINATION: Nontender, dressing clean dry and intact EXTREMITIES: Nontender LABORATORY DATA: Please see below. PROGNOSIS: Good ACTIVITY: As tolerated DIET: Regular DISCHARGE PLAN: Home DISCHARGE INSTRUCTIONS: 1. Discharge home 2. Instructions reviewed 3. Pain management 4. Follow-up office 2 weeks. DISCHARGE CONDITION: Stable. TIME SPENT ON DISCHARGE: 10 minutes. Vital Signs/I&Os Vital Signs Date Time Temp Pulse Resp B/P (MAP) Pulse Ox O2 Delivery O2 Flow Rate FiO2 02/28/21 06:00 97.2 80 18 119/57 (77) 02/26/21 18:27 98 Room Air I&O- Last 24 Hours up to 6 AM 02/28/21 05:59 Intake Total 200 ml Balance 200 ml Laboratory Data Labs 24H Laboratory Tests 2 02/27/21 11:18: Bedside Glucose (Misc Panel) 185H FSBS Laboratory Tests Test 02/27/21 11:18 Range/Units Bedside Glucose (Misc Panel) 185 70-105 MG/DL Discharge Medications Scheduled Ibuprofen (Ibuprofen) 800 Mg Tablet, 800 MG PO Q8H No122/Iron/Folic Acid ( Multi Tablet) 1 Each Tablet, 1 TAB PO DAILY, (Reported) Scheduled PRN Calcium Carbonate (Tums) 300 Mg Tab.chew, 1 TAB PO PRN PRN for HEARTBURN, (Reported) Oxycodone HCl/Acetaminophen (Oxycodone-Acetaminophen 5-325) 1 Each Tablet, 1 TAB PO TIDP PRN for pain Allergies Coded Allergies: TAPE (Verified Allergy, Unknown, RASH: TAPE & BANDAIDS, 02/25/21) latex (Verified Allergy, Unknown, RASH, 02/23/21) OSIRIS COUCH MD Feb 28, 2021 07:48
[2021-02-28] MEDS: PRENATAL VITAMINS CHEWABLE TABLET PO SCH (09:14)
== END 2021-02-28 14:28 | disposition home or self-care (01) | DRG 540 ==
LOC: M LDO 11:51 → M LDI 12:57 → M OBS 23:27
PROVIDERS: ADMIT Advanced Practice Midwife; ATTEND Advanced Practice Midwife
PROC: 0UB70ZZ Excision of Bilateral Fallopian Tubes, Open Approach (ICD-10-PCS; 2021-02-25)
PROC: 10D00Z1 Extraction of Products of Conception, Low, Open Approach (ICD-10-PCS; principal; 2021-02-25 20:00)
DX: O41.03X0 Oligohydramnios, third trimester, not applicable or unspecified (principal); E66.9 Obesity, unspecified; O99.214 Obesity complicating childbirth; O24.425 Gestational diabetes mellitus in childbirth, controlled by oral hypoglycemic drugs; Z37.0 Single live birth; Z3A.36 36 weeks gestation of pregnancy; O09.523 Supervision of elderly multigravida, third trimester; O76 Abnormality in fetal heart rate and rhythm complicating labor and delivery; O77.0 Labor and delivery complicated by meconium in amniotic fluid

== ENCOUNTER → 2021-02-25 | Outpatient (CLI) | payer OTHER ==
[~2021-02-25] MED LIST changes: +HEPA10IN10 SC; +HEPA500023 SQ; +MULTTAB20 PO; +OXYC1TAB23 PO; +TUMS750C22 PO
--- NOTE | 2021-02-25 11:33 | REP ---
INDICATION: BPP GROWTH GESTATIONAL DIABETES COMPARISON: 02/11/2021 TECHNIQUE: Transabdominal obstetrical ultrasound with color Doppler evaluation. FINDINGS: Examination demonstrates a single live intrauterine in cephalic presentation. motion is identified by technologist. Placenta is noted anterior and grade 2 without evidence for placenta previa or abruption. Amniotic fluid volume is below normal suggesting oligohydramnios. Cervix appears closed. Selected gestational age: 36 weeks 2 days with FILEMON 03/23/2021. Gestational age by current measurements 35 weeks 3 days with FILEMON 03/29/2021. FHR equals 153 beats per minute. BPD: 8.1 cm at 32 weeks 4 days HC: 32.3 cm at 36 weeks 4 days AC: 32.5 cm at 36 weeks 3 days FL: 6.9 cm at 35 weeks 3 days HL: 6.3 cm at 36 weeks 2 days HC/AC: 1.00 Estimated weight 2750 grams (37thpercentile). LUIS: 4.6 cm (7.6-24.8) Umbilical artery SD ratio: 2.54 (1.63-3.49) Biophysical profile score: 8/8 IMPRESSION: 1. Single live advanced gestation in cephalic presentation demonstrating appropriate estimated weight. 2. Oligohydramnios suspected. 3. Biophysical profile score: 8/8 <Electronically signed by Omar Santamaria > 02/25/21 [id number]
== END ==
LOC: M WHC 10:16
PROVIDERS: ATTEND Advanced Practice Midwife
DX: O24.319 Unspecified pre-existing diabetes mellitus in pregnancy, unspecified trimester (principal)

== ENCOUNTER → 2021-02-25 | Outpatient (REF) | payer OTHER | LOC: M SFHCWAGY 12:49 | PROVIDERS: ATTEND Advanced Practice Midwife | DX: O24.313 Unspecified pre-existing diabetes mellitus in pregnancy, third trimester (principal); Z3A.00 Weeks of gestation of pregnancy not specified ==

== ENCOUNTER → 2021-06-10 | Outpatient (CLI) | payer OTHER ==
[~2021-06-10] MED LIST changes: +OXYC1TAB23 PO; +TUMS750C22 PO
[2021-06-10 08:22] LABS: HEMATOCRIT 39.6 % (36.0-47.0); HEMOGLOBIN 12.4 g/dl (12.0-15.5); MEAN CORPUSCULAR HEMOGLOBIN 24.8 pg (27.0-33.0); MEAN CORPUSCULAR HGB CONC 31.3 g/dl (32.0-36.5); MEAN CORPUSCULAR VOLUME 79.2 fl (80.0-96.0); PLATELET COUNT, AUTOMATED 425 10^3/uL (150-450)
[2021-06-10 08:43] LABS: ERYTHROCYTE SEDIMENTATION RATE 44 mm/hr (0-20)
[2021-06-10 08:54] LABS: ALBUMIN 3.3 GM/DL (3.2-5.2); ALT/SGPT 41 U/L (12-78); BILIRUBIN,TOTAL 0.2 MG/DL (0.2-1.0); BLOOD UREA NITROGEN 12 MG/DL (7-18); CALCIUM LEVEL 8.9 MG/DL (8.5-10.1); CARBON DIOXIDE LEVEL 25 MEQ/L (21-32); CHLORIDE LEVEL 108 MEQ/L (98-107); CREATININE FOR GFR 0.63 MG/DL (0.55-1.30); GLOMERULAR FILTRATION RATE > 60.0 (>60); GLUCOSE, FASTING 99 MG/DL (70-100); POTASSIUM SERUM 4.4 MEQ/L (3.5-5.1); RHEUMATOID FACTOR QUANT < 10.0 IU/ML (<15.0); SODIUM LEVEL 139 MEQ/L (136-145); TOTAL PROTEIN 7.7 GM/DL (6.4-8.2)
[2021-06-10 09:18] LABS: HEMOGLOBIN A1c 5.6 %
[2021-06-13 23:14] LABS: ANTINUCLEAR ANTIBODIES DIRECT Negative (Negative); CYCLIC CITRULLINATED PEPTIDE 5 units (0-19)
== END ==
LOC: M LAB 07:30
PROVIDERS: ATTEND Family Medicine
DX: M25.50 Pain in unspecified joint (principal); R73.9 Hyperglycemia, unspecified; R53.83 Other fatigue

== ENCOUNTER → 2022-12-23 | Outpatient (CLI) | payer OTHER ==
[~2022-12-23] MED LIST changes: -HEPA10IN10 SC; +HEPA10IN27 SC
[2022-12-23 08:33] LABS: BASO % 0.4 % (0.0-1.0); EOS # 0.5 10^3/uL (0.0-0.5); EOS % 4.6 % (0.0-3.0); HEMOGLOBIN 12.4 g/dl (12.0-15.5); LYMPH # 3.1 10^3/uL (1.5-5.0); LYMPH % 30.4 % (24.0-44.0); MEAN CORPUSCULAR HEMOGLOBIN 25.9 pg (27.0-33.0); MEAN CORPUSCULAR HGB CONC 31.8 g/dl (32.0-36.5); MEAN CORPUSCULAR VOLUME 81.4 fl (80.0-96.0); MONO # 0.6 10^3/uL (0.0-0.8); MONO % 5.8 % (2.0-8.0); NEUTROPHILS # 5.9 10^3/uL (1.5-8.5); NEUTROPHILS % 58.4 % (36.0-66.0); PLATELET COUNT, AUTOMATED 368 10^3/uL (150-450); RED BLOOD COUNT 4.79 10^6/uL (4.00-5.40)
[2022-12-23 09:05] LABS: ALBUMIN 3.2 G/DL (3.2-5.2); ALKALINE PHOSPHATASE 107 U/L (46-116); ALT/SGPT 15 U/L (7.0-40); AST/SGOT < 8 U/L (<34); BILIRUBIN,TOTAL 0.2 MG/DL (0.3-1.2); BLOOD UREA NITROGEN 9 MG/DL (9-23); CALCIUM LEVEL 8.8 MG/DL (8.5-10.1); CARBON DIOXIDE LEVEL 25 MMOL/L (20-31); CHLORIDE LEVEL 106 MMOL/L (98-107); CHOLESTEROL LEVEL 154 MG/DL (<200); CHOLESTEROL RISK RATIO 3.98 (<5); CREATININE FOR GFR 0.66 MG/DL (0.55-1.30); GLOMERULAR FILTRATION RATE > 60.0 (>60); GLUCOSE, FASTING 111 MG/DL (60-100); HDL CHOLESTEROL 38.6 MG/DL (>40); NON-HDL-C 115.4 MG/DL; POTASSIUM SERUM 4.1 MMOL/L (3.5-5.1); SODIUM LEVEL 140 MMOL/L (136-145); TOTAL PROTEIN 7.2 G/DL (5.7-8.2); TRIGLYCERIDES LEVEL 172 MG/DL (<150)
== END ==
LOC: M LAB 08:10
PROVIDERS: ATTEND Family Medicine
DX: Z01.419 Encounter for gynecological examination (general) (routine) without abnormal findings (principal)

== ENCOUNTER → 2022-12-26 | Outpatient (CLI) | payer OTHER ==
[2022-12-27 06:09] LABS: MUMPS VIRUS IgG ANTIBODY 34.3 AU/mL (Immune >10.9)
== END ==
LOC: M PLALAB 10:21
PROVIDERS: ATTEND Family Medicine
DX: Z01.84 Encounter for antibody response examination (principal)

== ENCOUNTER → 2024-05-02 | Outpatient (CLI) | payer OTHER ==
[2024-05-02 09:56] LABS: BASO # 0.1 10^3/uL (0.0-0.2); BASO % 0.5 % (0.0-1.0); EOS # 0.3 10^3/uL (0.0-0.5); EOS % 3.3 % (0.0-3.0); HEMATOCRIT 39.5 % (36.0-47.0); HEMOGLOBIN 12.3 g/dl (12.0-15.5); LYMPH # 2.1 10^3/uL (1.5-5.0); LYMPH % 22.7 % (24.0-44.0); MEAN CORPUSCULAR HEMOGLOBIN 24.9 pg (27.0-33.0); MEAN CORPUSCULAR HGB CONC 31.1 g/dl (32.0-36.5); MEAN CORPUSCULAR VOLUME 80.1 fl (80.0-96.0); MONO # 0.5 10^3/uL (0.0-0.8); MONO % 5.5 % (2.0-8.0); NEUTROPHILS # 6.4 10^3/uL (1.5-8.5); NEUTROPHILS % 67.7 % (36.0-66.0); PLATELET COUNT, AUTOMATED 358 10^3/uL (150-450); RED BLOOD COUNT 4.93 10^6/uL (4.00-5.40); WHITE BLOOD COUNT 9.4 10^3/uL (4.0-10.0)
[2024-05-02 10:17] LABS: CORTISOL AM 11.4 UG/DL (4.3-22.4)
[2024-05-02 10:21] LABS: THYROID STIMULATING HORMONE 1.676 uIU/ML (0.55-4.78)
[2024-05-02 10:22] LABS: ALBUMIN 3.3 G/DL (3.2-5.2); ALKALINE PHOSPHATASE 94 U/L (35-104); ALT/SGPT 19 U/L (7.0-40); AST/SGOT 11 U/L (<34); BILIRUBIN,TOTAL 0.3 MG/DL (0.3-1.2); BLOOD UREA NITROGEN 11 MG/DL (9-23); CALCIUM LEVEL 9.3 MG/DL (8.5-10.1); CARBON DIOXIDE LEVEL 27 MMOL/L (20-31); CHLORIDE LEVEL 106 MMOL/L (98-107); CHOLESTEROL LEVEL 182 MG/DL (<200); CHOLESTEROL RISK RATIO 4.44 (<5); CREATININE FOR GFR 0.58 MG/DL (0.55-1.30); GLOMERULAR FILTRATION RATE > 60.0 (>58); GLUCOSE, FASTING 107 MG/DL (60-100); HDL CHOLESTEROL 40.9 MG/DL (>40); LDL CHOLESTEROL 89.3 MG/DL (<100); NON-HDL-C 141.1 MG/DL; POTASSIUM SERUM 4.1 MMOL/L (3.5-5.1); SODIUM LEVEL 139 MMOL/L (136-145); TOTAL PROTEIN 7.4 G/DL (5.7-8.2); TRIGLYCERIDES LEVEL 259 MG/DL (<150)
== END ==
LOC: M LAB 09:17
PROVIDERS: ATTEND Family Medicine
DX: Z00.00 Encounter for general adult medical examination without abnormal findings (principal); E66.9 Obesity, unspecified; R53.83 Other fatigue